=== PATIENT | female | born 1950 | race Caucasian/White ===

== ENCOUNTER 2017-03-04 14:14 | Observation (INO) ==
[2017-03-04] MEDS ORDERED: Ipratropium/Albuterol Neb 3 ML IH ONE (14:15)
--- NOTE | 2017-03-04 14:20 | Emergency Department Note ---
Disposition Clinical Impression: Acute exacerbation of chronic obstructive airways disease Chest pain Qualifiers: Chest pain type: unspecified Qualified Code(s): R07.9 - Chest pain, unspecified Disposition: Admitted As Inpatient Condition: Fair Referrals: NO,PCP [Primary Care Provider] - Forms: ED Satisfaction Letter Time of Disposition: 16:05 SOB HPI - General Chief Complaint: ED Shortness of Breath/Dyspnea Stated Complaint: Shortness of breath Time Seen by Provider: 03/04/17 14:15 Source: patient Mode of arrival: ambulatory Limitations: no limitations Nursing Notes Reviewed: Yes Vital Signs Reviewed: Yes - History of Present Illness 66-year-old female with history COPD comes in with increasing shortness of breath. Also complains of tightness and heaviness in her chest. Patient does states she's been having shortness of breath for the last 2-3 days. Patient has not had any recent cardiac workup. She does have a history of risk factors of previous cigarette smoking, hypertension, family history. Pt Subjective Complaint: shortness of breath Onset (ago): day(s) Severity: moderate Consistency/Duration: constant Improves with: nothing Worsens with: nothing, exertion Known history of: COPD Associated symptoms: Reports: cough, wheezing Treatment prior to arrival: none Cough present: No - Related Data Home Medications Medication Instructions Recorded Confirmed Aspirin 12/22/15 Atenolol 12/22/15 Fluoxetine 12/22/15 Furosemide 12/22/15 Gabapentin 12/22/15 Multivitamin 12/22/15 Ranitidine HCl 12/22/15 Simvastatin 12/22/15 TraZODone 12/22/15 Vitamin B12 12/22/15 12/22/15 Previous Rx's Medication Instructions Recorded Azithromycin [Zithromax] 1 applic PO DAILY #6 tablet 12/22/15 Albuterol Sulfate [Albuterol 2 puff IH Q4HR #1 hfa.aer.ad 04/03/16 Inhaler] Azithromycin [Zithromax] 250 mg PO Q24H #7 tablet 04/03/16 Inhaler, Assist Devices [Aerovent 1 each MC DAILY #1 spacer 04/06/16 Plus] Hydrocodone/Acetaminophen [[place] 1 tab PO TID PRN #15 tab 05/05/16 5-325 Tablet] Naproxen [Naprosyn] 500 mg PO BID #20 tablet 05/05/16 Ondansetron ODT [Zofran ODT] 4 mg SL Q6HR #15 tab.rapdis 05/05/16 Azithromycin [Zithromax] 250 mg PO DAILY #6 tablet 09/07/16 Fluconazole [Diflucan] 150 mg PO DAILY #1 tab 09/07/16 HYDROcodone/Acet 5/325 mg [[place] 1 tab PO Q6H PRN #5 tab 09/11/16 5-325 mg] Omeprazole [PriLOSEC] 20 mg PO DAILY #21 cap 09/11/16 Sucralfate [Carafate] 1 gm PO QID #30 tablet 09/11/16 Allergies Allergy/AdvReac Type Severity Reaction Status Date / Time Amoxicillin Allergy Rash Verified 03/04/17 14:21 codeine Allergy Rash Verified 03/04/17 14:21 diphenhydramine Allergy Difficulty Verified 03/04/17 14:21 [From Benadryl] Breathing Constitutional: Denies: fever, chills, weakness, weight change Eyes: Denies: eye pain, eye discharge, vision change ENT ED: Denies: ear pain, throat pain, dental pain, hearing loss, epistaxis, congestion, dysphagia Cardiovascular: Denies: chest pain, palpitations, dyspnea on exertion, edema, syncope Respiratory: Reports: cough, dyspnea, wheezes. Denies: hemoptysis, stridor Gastrointestinal: Denies: abdominal pain, nausea, vomiting, diarrhea, constipation, hematemesis, melena, hematochezia Genitourinary: Denies: dysuria, frequency, hematuria, discharge Musculoskeletal: Denies: back pain, neck pain, arthralgia, myalgia Integumentary: Denies: rash, abrasion, lesions Neurological: Denies: headache, weakness, numbness, paresthesias, confusion, abnormal gait, vertigo Psychiatric: Denies: anxiety, depression, suicidal thoughts, homicidal thoughts , auditory hallucinations, visual hallucinations Endocrine: Denies: fatigue Hematological/Lymphatic: Denies: easy bleeding, easy bruising Allergic/Immunologic: Denies: facial swelling, urticaria Past Medical History - Past Medical History Medical history: Reports: GERD, hyperlipidemia, hypertension, other Psychiatric history: Reports: depression - Social History Smoking Status: Former smoker Smokeless Tobacco Status: No Alcohol use: Reports: none Drug use: Reports: none Physical Exam - General Limitations: no limitations General appearance: alert, in no apparent distress - Head Head exam: atraumatic, normocephalic, normal inspection - Eye Eye exam: Present: normal appearance, PERRL, EOMI - ENT ENT exam: normal exam, normal oropharynx, mucous membranes moist - Neck Neck exam: Present: normal inspection, full ROM, trachea midline - Chest Chest inspection: Present: normal inspection, symmetric chest wall rise - Respiratory Respiratory exam: Present: normal lung sounds bilaterally - Cardiovascular Cardiovascular exam: Present: regular rate, normal rhythm, normal heart sounds - Abdominal Exam Abdominal exam: Present: soft, Non-Tender. Absent: tenderness, distention, guarding, rebound, rigidity - Extremities Exam Extremities exam: Present: normal inspection, full ROM. Absent: tenderness, pedal edema - Expanded Lower Extremity Exam Neurovascular/Tendon exam: Absent: motor deficit, sensory deficit, tendon deficit Gait: not tested/not observed - Back Exam Back exam: Present: normal inspection, full ROM. Absent: tenderness - Neurological Exam Neurological exam: Present: alert, oriented X3 - Psychiatric Psychiatric exam: Present: normal affect, normal mood - Skin Skin exam: Present: warm, dry, intact, normal color Course - Reevaluation(s) Reevaluation #1: 66-year-old set of three-day history of shortness of breath and chest pressure with exertion. Patient has multiple risk factors including hyperlipidemia hypertension previous cigarette smoker. On exam she did have an occasional wheeze on initially. Her EKG showed nonspecific changes initial troponin is negative. Patient's had no recent cardiac workup. We will admit the patient for evaluation of her chest discomfort. Time: 16:06 - Consultations Consultation #1: Discussed with maribell Gardiner. Time: 16:27 Vital Signs Temperature 99.1 F 03/04/17 14:15 Pulse Rate 66 03/04/17 14:15 Respiratory Rate 20 03/04/17 14:15 Blood Pressure 165/94 03/04/17 14:15 O2 Sat by Pulse Oximetry 97 03/04/17 14:15 Temperature 99.1 F 03/04/17 14:15 Pulse Rate 73 03/04/17 15:14 Respiratory Rate 16 03/04/17 15:14 Blood Pressure 134/93 03/04/17 15:14 O2 Sat by Pulse Oximetry 93 03/04/17 15:14 Oxygen Delivery Oxygen Delivery Room Air Shortness of Breath/Dyspnea - Lab Data Lab results reviewed: Yes I reviewed the patient's lab results. Result diagrams: 03/04/17 14:47 03/04/17 14:47 Lab Results 03/04/17 03/04/17 03/04/17 Range/Units 14:47 14:47 14:47 WBC 8.7 (4.3-11.1) K/mcL RBC 4.79 (3.82-4.97) M/mcL Hgb 13.7 (11.5-15.4) g/dL Hct 41.7 (35.3-44.9) % MCV 87.1 (83.0-100.0) fL MCH 28.6 (28.0-33.3) pg MCHC 32.9 (31.6-35.5) g/dL RDW 12.6 (11.5-14.5) % Plt Count 368 (140-400) K/mcL MPV 9.2 L (9.4-12.4) fL Immature Gran % 0.2 (0-4) % Seg Neutrophils % 59.0 % Lymphocytes % 30.3 % Monocytes % 8.6 % Eosinophils % 1.4 % Basophils % 0.5 % Neutrophils # 5.1 (1.6-8.9) K/mcL Lymphocytes # 2.6 (0.6-4.6) K/mcL Monocytes # 0.8 (0.0-1.3) K/mcL Eosinophils # 0.1 (0.0-0.6) K/mcL Basophils # 0.0 (0.0-0.2) K/mcL Sodium 139 (136-145) mEq/L Potassium 3.7 (3.5-4.5) mEq/L Chloride 106 (98-109) mEq/L Carbon Dioxide 25 (19-29) mEq/L BUN 10 (7-20) mg/dL Creatinine 0.85 (0.57-1.11) mg/dL Est GFR ( Amer) > 60 (> 60) Est GFR (Non-Af Amer) > 60 (> 60) BUN/Creatinine Ratio 12 (6-26) Glucose 108 H (70-99) mg/dL Calculated Osmolality 288 (280-300) Lactic Acid 1.5 (0.5-2.2) mmol/L Calcium 9.5 (8.6-10.8) mg/dL Troponin I (0-0.03) ng/mL B-Natriuretic Peptide (0-100) pg/mL 03/04/17 03/04/17 Range/Units 14:47 14:47 WBC (4.3-11.1) K/mcL RBC (3.82-4.97) M/mcL Hgb (11.5-15.4) g/dL Hct (35.3-44.9) % MCV (83.0-100.0) fL MCH (28.0-33.3) pg MCHC (31.6-35.5) g/dL RDW (11.5-14.5) % Plt Count (140-400) K/mcL MPV (9.4-12.4) fL Immature Gran % (0-4) % Seg Neutrophils % % Lymphocytes % % Monocytes % % Eosinophils % % Basophils % % Neutrophils # (1.6-8.9) K/mcL Lymphocytes # (0.6-4.6) K/mcL Monocytes # (0.0-1.3) K/mcL Eosinophils # (0.0-0.6) K/mcL Basophils # (0.0-0.2) K/mcL Sodium (136-145) mEq/L Potassium (3.5-4.5) mEq/L Chloride (98-109) mEq/L Carbon Dioxide (19-29) mEq/L BUN (7-20) mg/dL Creatinine (0.57-1.11) mg/dL Est GFR ( Amer) (> 60) Est GFR (Non-Af Amer) (> 60) BUN/Creatinine Ratio (6-26) Glucose (70-99) mg/dL Calculated Osmolality (280-300) Lactic Acid (0.5-2.2) mmol/L Calcium (8.6-10.8) mg/dL Troponin I 0.00 (0-0.03) ng/mL B-Natriuretic Peptide 118 H (0-100) pg/mL - Radiology Data Radiology results reviewed: Yes I reviewed the patient's radiology results. Chest X-Ray 03/04/17 14:15 IMPRESSION: 1. No acute radiographic finding in the chest to account for patient's shortness of breath. D/ / Logan Lopez MD / Logan Lopez MD Interpreting Provider: Logan Lopez MD - EKG Data EKG attestation: Yes I reviewed and interpreted this EKG. EKG shows normal: Reports: sinus rhythm Rate: Reports: normal Rhythm: Reports: NSR Interpretation: Reports: no acute changes
[2017-03-04 15:01] LABS: Basophils % 0.5 %; Eosinophils # 0.1 K/mcL (0.0-0.6); Eosinophils % 1.4 %; Hematocrit 41.7 % (35.3-44.9); Hemoglobin 13.7 g/dL (11.5-15.4); Immature Granulocytes % 0.2 % (0-4); Lymphocytes # 2.6 K/mcL (0.6-4.6); Lymphocytes % 30.3 %; Mean Corpuscular HGB Conc 32.9 g/dL (31.6-35.5); Mean Corpuscular Hemoglobin 28.6 pg (28.0-33.3); Mean Corpuscular Volume 87.1 fL (83.0-100.0); Mean Platelet Volume 9.2 fL (9.4-12.4); Monocytes # 0.8 K/mcL (0.0-1.3); Monocytes % 8.6 %; Neutrophils # 5.1 K/mcL (1.6-8.9); Platelet Count 368 K/mcL (140-400); Red Blood Count 4.79 M/mcL (3.82-4.97); Red Cell Distribution Width 12.6 % (11.5-14.5)
[2017-03-04 15:13] LABS: BUN/Creatinine Ratio 12 (6-26); Blood Urea Nitrogen 10 mg/dL (7-20); Calcium 9.5 mg/dL (8.6-10.8); Carbon Dioxide 25 mEq/L (19-29); Chloride 106 mEq/L (98-109); Glucose 108 mg/dL (70-99); Osmolality,Calculated 288 (280-300); Potassium 3.7 mEq/L (3.5-4.5); Sodium 139 mEq/L (136-145); eGFR For African Americans > 60 (> 60); eGFR For Non-African Americans > 60 (> 60)
[2017-03-04] MEDS ORDERED: Naloxone 0.4 MG/ML INJ IVP PRN (17:12)
--- NOTE | 2017-03-04 17:29 | Internal Med History&Physical ---
Date of Encounter: 03/04/17 Time of Encounter: 16:50 Assessment and Plan (1) Chest pain Current visit: Yes Status: Acute Patient had intermittent chest pain, with shortness of breath, nausea, diaphoresis, and dizziness. Need to rule out ACS - Continuous cardiac monitoring. - 3 sets of troponin will be tracked. - Continue aspirin, beta gabi, and is statin - Nitroglycerin sublingual when necessary. - EKG shows ST depression, will repeat EKG - Echocardiogram. - Patient has a current chest pain, we will hold stress test. We will consult cardiology Qualifiers: Chest pain type: precordial pain Qualified Code(s): R07.2 - Precordial pain (2) Shortness of breath Current visit: Yes Status: Acute Etiology is undetermined. Patient has history of COPD, however progressive shortness of breath with exertion and intermittent leg swelling raise the concern of CHF - Place patient on continuous cardiac monitoring. - Check echocardiogram. - BNP is mildly elevated but patient is obese, need to consider false-negative. - Chest x-ray is clear, no signs of pulmonary vascular congestion - Continue home medication Lasix by mouth. Adjust based on echo results. (3) Hypertension Current visit: Yes Status: Acute BP is stable, continue home medications Qualifiers: Hypertension type: essential hypertension Qualified Code(s): I10 - Essential (primary) hypertension (4) Diabetes Current visit: Yes Status: Acute Patient has borderline diabetes, on no medication, place patient on diet control only. Qualifiers: Diabetes mellitus type: type 2 Diabetes mellitus complication status: without complication Diabetes mellitus assistant terminal manager insulin use: without assistant terminal manager use Qualified Code(s): E11.9 - Type 2 diabetes mellitus without complications (5) DVT prophylaxis Current visit: Yes Status: Acute Heparin subcutaneously (6) COPD (chronic obstructive pulmonary disease) Current visit: Yes Status: Acute Stable. Patient has no wheezing. Place patient on DuoNeb nebulizer when necessary Qualifiers: COPD type: chronic bronchitis Chronic bronchitis type: unspecified Qualified Code(s): J42 - Unspecified chronic bronchitis Internal Medicine - H&P: HPI Chief complaint: Shortness of breath and chest pain Admitted From: Home Plans for Post Hospital Care: Home History of present illness: Ms. Grissom is a 66 year old female present to ER for shortness of breath and chest pain. Patient said she started to have exertional shortness of breath since 2-3 months ago, with intermittent leg edema, patient started to take Lasix for the edema since 2 years ago. Patient experienced worsening shortness of breath in last 3-4 days, with chest pain. The chest pain is intermittent, lasted 15-20 minutes for every episode, 4-5 times a day. Chest pain located in the mid chest and radiated to both arms, with shortness of breath, nausea, diaphoresis, and dizziness with the pain. Patient also mentioned in October she had syncope and fell for once. I discussed the CODE STATUS with patient. She is full code. Past Med Surg Social Fam HX - Past Medical History Medical history: GERD, hyperlipidemia, hypertension, other Psychiatric history: depression - Social History Smoking Status: Former smoker Smokeless Tobacco Status: No Alcohol use: none Drug use: none Internal Medicine - H&P: Meds Aspirin 81 mg PO DAILY 12/22/15 [History] Atenolol [Tenormin] 25 mg PO DAILY 12/22/15 [History] Cyanocobalamin (Vitamin B-12) [Vitamin B-12] 1,000 mcg SL DAILY 12/22/15 [ History] FLUoxetine HCl [PROzac] 20 mg PO DAILY 12/22/15 [History] Furosemide [Lasix] 20 mg PO BID 12/22/15 [History] Gabapentin [Neurontin] 300 mg PO HS 12/22/15 [History] Simvastatin [Zocor] 40 mg PO HS 12/22/15 [History] Omeprazole [PriLOSEC] 20 mg PO DAILY #21 cap 09/11/16 [Rx] Ergocalciferol (VITAMIN D2) [Vitamin D2] 2,000 units PO DAILY 03/04/17 [History] Loratadine [Claritin] 10 mg PO DAILY 03/04/17 [History] Allergies Amoxicillin Allergy (Verified 03/04/17 16:30) Rash codeine Allergy (Verified 03/04/17 16:30) Rash diphenhydramine [From Benadryl] Allergy (Verified 03/04/17 16:30) Difficulty Breathing All Systems PM: A 10-system review of systems was performed and is negative for pertinent findings except as documented above in the HPI. - Constitutional Vitals: Temp Pulse Resp BP Pulse Ox 99.1 F 79 18 125/87 99 03/04/17 14:15 03/04/17 16:31 03/04/17 16:31 03/04/17 16:31 03/04/17 16:31 General appearance: Present: A&O X 3, no acute distress, answers questions appropriately - Head Head exam: Present: atraumatic, normocephalic - Eye Eye exam: Present: PERRL, conjuntiva pink, sclera anicteric Pupils: Present: PERRL - Neck Neck exam general surgery: Present: supple, trachea midline. Absent: lymphadenopathy - Respiratory Respiratory exam: Present: CTAB. Absent: accessory muscle use, rales, rhonchi, wheezes - Cardiovascular Cardiovascular exam: Present: RRR, +S1, +S2. Absent: diastolic murmur, gallop, rubs, systolic murmur - GI/Abdominal GI/Abdominal exam: Present: normal bowel sounds, soft, no peritoneal signs. Absent: distended, tenderness - Extremities Exam Extremities exam: Present: warm, radial pulses palpable and symetrical. Absent : calf tenderness, cyanotic, pedal edema - Neurological Exam Neurological exam: Present: CN II-XII intact, oriented X3, no focal deficits. Absent: pronater drift, facial droop, speech deficit - Skin Skin exam: Present: dry, intact Internal Med - H&P Results - Labs CBC & Chem 7: 03/04/17 14:47 03/04/17 14:47 - EKG Data -: EKG Interpreted by Myself EKG shows normal: sinus rhythm, ST-T waves (Mild ST depression 0.5mm)
[2017-03-04] MEDS: *HR* Heparin 5,000 UNIT/ML VIAL SQ SCH (18:03)
[2017-03-04] MEDS: Furosemide 20 MG TABLET PO SCH (18:07)
[2017-03-04] MEDS ORDERED: Nitroglycerin 0.4 MG TAB.SUBL SL PRN (18:19)
[2017-03-04] MEDS ORDERED: Ipratropium/Albuterol Neb 3 ML IH PRN (18:20)
[2017-03-04] MEDS: Gabapentin 300 MG CAPSULE PO SCH (19:28)
[2017-03-05 05:05] LABS: Basophils % 0.5 %; Eosinophils # 0.2 K/mcL (0.0-0.6); Eosinophils % 1.8 %; Hematocrit 39.5 % (35.3-44.9); Immature Granulocytes % 0.6 % (0-4); Immature Platelets 2.8 % (1.1-6.1); Lymphocytes # 3.1 K/mcL (0.6-4.6); Lymphocytes % 36.6 %; Mean Corpuscular HGB Conc 32.9 g/dL (31.6-35.5); Mean Corpuscular Hemoglobin 28.9 pg (28.0-33.3); Mean Corpuscular Volume 87.8 fL (83.0-100.0); Mean Platelet Volume 9.5 fL (9.4-12.4); Monocytes # 0.8 K/mcL (0.0-1.3); Neutrophils # 4.4 K/mcL (1.6-8.9); Platelet Count 364 K/mcL (140-400); Red Cell Distribution Width 12.7 % (11.5-14.5); Segmented Neutrophils % 51.5 %
[2017-03-05 05:29] LABS: BUN/Creatinine Ratio 14 (6-26); Blood Urea Nitrogen 13 mg/dL (7-20); Carbon Dioxide 27 mEq/L (19-29); Chloride 104 mEq/L (98-109); Glucose 100 mg/dL (70-99); Magnesium 1.9 mg/dL (1.6-2.6); Osmolality,Calculated 292 (280-300); Potassium 3.4 mEq/L (3.5-4.5); Sodium 141 mEq/L (136-145); eGFR For African Americans > 60 (> 60); eGFR For Non-African Americans > 60 (> 60)
[2017-03-05] MEDS: *HR* Heparin 5,000 UNIT/ML VIAL SQ SCH ×2 (06:01→17:48)
[2017-03-05] MEDS: FLUoxetine 20 MG CAPSULE PO SCH (07:47)
[2017-03-05] MEDS: Furosemide 20 MG TABLET PO SCH ×2 (07:48→17:40)
[2017-03-05] MEDS: Loratadine 10 MG TABLET PO SCH (07:48)
[2017-03-05] MEDS: Aspirin 81 MG TAB.CHEW PO SCH (07:48)
[2017-03-05] MEDS: Acetaminophen 325 MG TABLET PO PRN ×2 (11:39→17:46)
--- NOTE | 2017-03-05 15:48 | Internal Med Progress Note ---
Date of Encounter: 03/05/17 Time of Encounter: 15:46 - Assessment and plan (1) Acute exacerbation of chronic obstructive airways disease Current Visit: Yes Status: Acute (2) Chest pain Current Visit: Yes Status: Acute Qualifiers: Chest pain type: precordial pain Qualified Code(s): R07.2 - Precordial pain (3) Hypertension Current Visit: Yes Status: Acute Qualifiers: Hypertension type: essential hypertension Qualified Code(s): I10 - Essential (primary) hypertension (4) Diabetes Current Visit: Yes Status: Acute Qualifiers: Diabetes mellitus type: type 2 Diabetes mellitus complication status: without complication Diabetes mellitus police sergeant insulin use: without prison use Qualified Code(s): E11.9 - Type 2 diabetes mellitus without complications - Subjective Interval history: Miss Eulalia Grissom is a 66-year-old female admitted for COPD exacerbation and now her breathing is much better and she is ambulating without oxygen. However last night she developed an episode of left-sided chest pain. Apparently she had a stress test 34 years ago which according to her was unremarkable. EKG was done which did not show any significant finding except for nonspecific ST abnormalities. She also was stressed as an hospital before I stress Myoview will be ordered. - Constitutional Vitals: Temp Pulse Resp BP Pulse Ox 97.6 F 60 14 94/62 95 03/05/17 11:19 03/05/17 11:19 03/05/17 11:19 03/05/17 11:19 03/05/17 11:19 General appearance: Present: A&O X 3, no acute distress, answers questions appropriately - Head Head exam: Present: atraumatic, normocephalic - Eye Eye exam: Present: PERRL, conjuntiva pink, sclera anicteric Pupils: Present: PERRL - Neck Neck exam general surgery: Present: supple, trachea midline. Absent: lymphadenopathy - Respiratory Respiratory exam: Present: CTAB. Absent: accessory muscle use, rales, rhonchi, wheezes - Cardiovascular Cardiovascular exam: Present: RRR, +S1, +S2. Absent: diastolic murmur, gallop, rubs, systolic murmur - GI/Abdominal GI/Abdominal exam: Present: normal bowel sounds, soft, no peritoneal signs. Absent: distended, tenderness - Extremities Exam Extremities exam: Present: warm, radial pulses palpable and symetrical. Absent : calf tenderness, cyanotic, pedal edema - Neurological Exam Neurological exam: Present: CN II-XII intact, oriented X3, no focal deficits. Absent: pronater drift, facial droop, speech deficit - Skin Skin exam: Present: dry, intact Internal Medicine: Result - Labs CBC & Chem 7: 03/05/17 03:21 03/05/17 03:21 Labs: Short CBC 03/05/17 Range/Units 03:21 WBC 8.5 (4.3-11.1) K/mcL Hgb 13.0 (11.5-15.4) g/dL Hct 39.5 (35.3-44.9) % Plt Count 364 (140-400) K/mcL Neutrophils # 4.4 (1.6-8.9) K/mcL BMP 03/05/17 03:21 Sodium 141 Potassium 3.4 L Chloride 104 Carbon Dioxide 27 BUN 13 Creatinine 0.93 Glucose 100 H Calcium 9.0 Cardiac Enzymes 03/04/17 03/05/17 Range/Units 21:05 03:21 Troponin I 0.00 0.00 (0-0.03) ng/mL Consult Discharge Plan - Plan Referrals: NO,PCP [Primary Care Provider] -
--- NOTE | 2017-03-05 17:54 | Electrocardiograph Report ---
[place] [address] Test Date: 2017-03-04 Pat Name: Dayana Grissom Department: 105 Room: 3A11 Gender: F Certified Medical Technician: : 1950 Requested By: Yuval Fischer Order Number: [id number] Reading MD: Alejandro Steele MD Measurements Intervals [place] Rate: 61 P: 24 TX: 127 QRS: 23 QRSD: 84 T: 41 QT: 408 QTc: 411 Interpretive Statements SINUS RHYTHM Poor R wave progression Electronically Signed On 03-05-2017 17:52:19 EDT by Alejandro Steele MD
--- NOTE | 2017-03-05 17:59 | Electrocardiograph Report ---
[address] [address] Test Date: 2017-03-04 Pat Name: Dayana Grissom Department: 115 Room: 3A11 Gender: F Lead Advisor: KYLIE : 1950 Requested By: Randall Adler Order Number: [id number] Reading MD: Alejandro Steele MD Measurements Intervals [place] Rate: 60 P: 33 PA: 140 QRS: 23 QRSD: 86 T: 49 QT: 441 QTc: 441 Interpretive Statements SINUS RHYTHM Electronically Signed On 03-05-2017 17:57:41 EDT by Alejandro Steele MD
[2017-03-05] MEDS: Gabapentin 300 MG CAPSULE PO SCH (20:03)
[2017-03-06] MEDS: *HR* Heparin 5,000 UNIT/ML VIAL SQ SCH ×2 (05:03→18:11)
[2017-03-06 07:37] LABS: BUN/Creatinine Ratio 23 (6-26); Blood Urea Nitrogen 22 mg/dL (7-20); Calcium 9.1 mg/dL (8.6-10.8); Carbon Dioxide 30 mEq/L (19-29); Chloride 104 mEq/L (98-109); Glucose 96 mg/dL (70-99); Osmolality,Calculated 295 (280-300); Sodium 141 mEq/L (136-145); eGFR For African Americans > 60 (> 60); eGFR For Non-African Americans 59 (> 60)
[2017-03-06] MEDS ORDERED: Regadenoson 0.4 MG/5 ML SYRINGE IVP ONE (07:52)
[2017-03-06 07:55] LABS: Potassium 4.9 mEq/L (3.5-4.5)
[2017-03-06] MEDS: FLUoxetine 20 MG CAPSULE PO SCH (09:49)
[2017-03-06] MEDS: Loratadine 10 MG TABLET PO SCH (09:50)
[2017-03-06] MEDS: Aspirin 81 MG TAB.CHEW PO SCH (09:50)
[2017-03-06] MEDS: Furosemide 20 MG TABLET PO SCH ×2 (09:50→18:11)
--- NOTE | 2017-03-06 13:20 | Internal Med Progress Note ---
Date of Encounter: 03/06/17 Time of Encounter: 13:19 - Assessment and plan (1) Acute exacerbation of chronic obstructive airways disease Current Visit: Yes Status: Acute (2) Chest pain Current Visit: Yes Status: Acute Qualifiers: Chest pain type: precordial pain Qualified Code(s): R07.2 - Precordial pain (3) Hypertension Current Visit: Yes Status: Acute Qualifiers: Hypertension type: essential hypertension Qualified Code(s): I10 - Essential (primary) hypertension (4) Diabetes Current Visit: Yes Status: Acute Qualifiers: Diabetes mellitus type: type 2 Diabetes mellitus complication status: without complication Diabetes mellitus terminal operations manager insulin use: without retirement use Qualified Code(s): E11.9 - Type 2 diabetes mellitus without complications - Subjective Interval history: Miss Eulalia Grissom is a 66-year-old female admitted for COPD exacerbation and now her breathing is much better and she is ambulating without oxygen. However last night she developed an episode of left-sided chest pain. Apparently she had a stress test 34 years ago which according to her was unremarkable. EKG was done which did not show any significant finding except for nonspecific ST abnormalities. Patient wants to have a stress test and hospital. stress Myoview ordered and will be finished by tomorrow. First thought is already done. - Constitutional Vitals: Temp Pulse Resp BP Pulse Ox 98.3 F 70 16 115/76 95 03/06/17 11:55 03/06/17 11:55 03/06/17 11:55 03/06/17 11:55 03/06/17 11:55 General appearance: Present: A&O X 3, no acute distress, answers questions appropriately - Head Head exam: Present: atraumatic, normocephalic - Eye Eye exam: Present: PERRL, conjuntiva pink, sclera anicteric Pupils: Present: PERRL - Neck Neck exam general surgery: Present: supple, trachea midline. Absent: lymphadenopathy - Respiratory Respiratory exam: Present: CTAB. Absent: accessory muscle use, rales, rhonchi, wheezes - Cardiovascular Cardiovascular exam: Present: RRR, +S1, +S2. Absent: diastolic murmur, gallop, rubs, systolic murmur - GI/Abdominal GI/Abdominal exam: Present: normal bowel sounds, soft, no peritoneal signs. Absent: distended, tenderness - Extremities Exam Extremities exam: Present: warm, radial pulses palpable and symetrical. Absent : calf tenderness, cyanotic, pedal edema - Neurological Exam Neurological exam: Present: CN II-XII intact, oriented X3, no focal deficits. Absent: pronater drift, facial droop, speech deficit - Skin Skin exam: Present: dry, intact Internal Medicine: Result - Labs CBC & Chem 7: 03/05/17 03:21 03/06/17 06:16 Labs: BMP 03/06/17 06:16 Sodium 141 Potassium 4.9 H D Chloride 104 Carbon Dioxide 30 H BUN 22 H Creatinine 0.96 Glucose 96 Calcium 9.1 Consult Discharge Plan - Plan Referrals: NO,PCP [Primary Care Provider] -
--- NOTE | 2017-03-06 13:24 | Discharge Summary ---
Date of Encounter: 03/07/17 Time of Encounter: 13:22 - Discharge Diagnosis (1) Acute exacerbation of chronic obstructive airways disease Priority: Primary Status: Acute (2) Chest pain Priority: Primary Status: Acute Qualifiers: Chest pain type: precordial pain Qualified Code(s): R07.2 - Precordial pain (3) Hypertension Priority: Secondary Status: Acute Qualifiers: Hypertension type: essential hypertension Qualified Code(s): I10 - Essential (primary) hypertension (4) Diabetes Priority: Secondary Status: Acute Qualifiers: Diabetes mellitus type: type 2 Diabetes mellitus complication status: without complication Diabetes mellitus extermination supervisor insulin use: without fpc use Qualified Code(s): E11.9 - Type 2 diabetes mellitus without complications - Discharge Medications Prescriptions: Albuterol Sulfate [Albuterol Inhaler] 2 puff IH QID PRN #1 inhaler PRN Reason: Shortness Of Breath/Wheezing Tiotropium [Spiriva] 18 mcg IH DAILYR #1 inh Home Medications: Aspirin 81 mg PO DAILY 12/22/15 [History] Atenolol [Tenormin] 25 mg PO DAILY 12/22/15 [History] Cyanocobalamin (Vitamin B-12) [Vitamin B-12] 1,000 mcg SL DAILY 12/22/15 [ History] FLUoxetine HCl [Prozac] 20 mg PO DAILY 12/22/15 [History] Furosemide [Lasix] 20 mg PO BID 12/22/15 [History] Gabapentin [Neurontin] 300 mg PO HS 12/22/15 [History] Simvastatin [Zocor] 40 mg PO HS 12/22/15 [History] Omeprazole [PriLOSEC] 20 mg PO DAILY #21 cap 09/11/16 [Rx] Ergocalciferol (VITAMIN D2) [Vitamin D2] 2,000 units PO DAILY 03/04/17 [History] Loratadine [Claritin] 10 mg PO DAILY 03/04/17 [History] Albuterol Sulfate [Albuterol Inhaler] 2 puff IH QID PRN #1 inhaler 03/07/17 [Rx] Tiotropium [Spiriva] 18 mcg IH DAILYR #1 inh 03/07/17 [Rx] Allergies/Adverse Reactions: Allergies Amoxicillin Allergy (Verified 03/04/17 16:30) Rash codeine Allergy (Verified 03/04/17 16:30) Rash diphenhydramine [From Benadryl] Allergy (Verified 03/04/17 16:30) Difficulty Breathing Procedures/tests Complete & Pending: Procedures Performed prior 72 hours Category Date Time Status NM [place] perf SPECT multi [NM] Routine Exams 03/05/17 09:09 Taken EKG [ECG 12 lead ECG] [ECG] AM 0600 Y 03/05/17 06:00 Completed EKG [ECG 12 lead ECG] [ECG] Stat Y 03/04/17 20:00 Completed EV echocardiogram Routine Y 03/05/17 17:17 Completed SP pharm nuclear stress Stat Y 03/06/17 09:00 Completed Date of admission: 03/04/17 16:42 Primary care physician: PCP NO Consults: 03/05/17 09:47 Consult to Transaction Processor [CONS] Routine Reason for SW Consult: needs information on transportation assistance Discharging clinician: David Siddiqi Anticipated date of discharge: 03/07/17 - Patient Status Disposition: Home, Self-Care Overall status at discharge: patient is back to baseline - Discharge Instructions Follow Up With: NO,PCP [Primary Care Provider] - - Diet and Activity Activity: increase activity as tolerated Diet: advance to your usual diet, low fat, low cholesterol, low salt diet Hospital course: Ms. Grissom is a 66 year old female was admitted for acute exacerbation of COPD. She was treated with nebulizers and steroids and doing better. She complained of left-sided chest pain and her cardiac enzymes and EKG were unremarkable. She had a stress test several years ago according to her. Patient to stress Myoview test was done and it was negative. Her EF was estimated to be 72%. - Time Spent with Patient Total time spent providing and/or coordinating discharge services: Greater than 30 minutes - Constitutional Vitals: Temp Pulse Resp BP Pulse Ox 98.3 F 70 16 115/76 95 03/06/17 11:55 03/06/17 11:55 03/06/17 11:55 03/06/17 11:55 03/06/17 11:55 General appearance: Present: A&O X 3, no acute distress, answers questions appropriately - Head Head exam: Present: atraumatic, normocephalic - Eye Eye exam: Present: PERRL, conjuntiva pink, sclera anicteric Pupils: Present: PERRL - Neck Neck exam general surgery: Present: supple, trachea midline. Absent: lymphadenopathy - Respiratory Respiratory exam: Present: CTAB. Absent: accessory muscle use, rales, rhonchi, wheezes - Cardiovascular Cardiovascular exam: Present: RRR, +S1, +S2. Absent: diastolic murmur, gallop, rubs, systolic murmur - GI/Abdominal GI/Abdominal exam: Present: normal bowel sounds, soft, no peritoneal signs. Absent: distended, tenderness - Extremities Exam Extremities exam: Present: warm, radial pulses palpable and symetrical. Absent : calf tenderness, cyanotic, pedal edema - Neurological Exam Neurological exam: Present: CN II-XII intact, oriented X3, no focal deficits. Absent: pronater drift, facial droop, speech deficit - Skin Skin exam: Present: dry, intact
[2017-03-06] MEDS: Tiotropium 18 MCG inhalation IH SCH (14:34)
[2017-03-06] MEDS: Gabapentin 300 MG CAPSULE PO SCH (20:27)
[2017-03-07] MEDS: *HR* Heparin 5,000 UNIT/ML VIAL SQ SCH (05:19)
[2017-03-07] MEDS: Tiotropium 18 MCG inhalation IH SCH (08:40)
[2017-03-07] MEDS: Aspirin 81 MG TAB.CHEW PO SCH (09:29)
[2017-03-07] MEDS: FLUoxetine 20 MG CAPSULE PO SCH (09:29)
[2017-03-07] MEDS: Furosemide 20 MG TABLET PO SCH (09:29)
[2017-03-07] MEDS: Loratadine 10 MG TABLET PO SCH (09:29)
--- NOTE | 2017-03-07 10:53 | Nuclear Medicine Stress Report ---
Regadenoson Nuclear 2 day Name: Dayana Grissom Date of Study: 03/06/2017 Date: 1950 Ht: 60.0 in Medical Record#: [id number] Age: 66 Wt: 140.0 lb Gender: Female Order #: [id number] Location: [facility] Room: [facility] [place] Supervising Provider: Kendy Camp CNP Reading Physician: Amor Esqueda DO, FACC, FASIL Ordering Physician: David Siddiqi MD Primary Care Physician: NONE Stress Technologist: Natalia Head NETWORKING SPECIALIST, CCT Director Of Sports Medicine: Hermilo Kinney Indications: Chest Pain Impression: Pharmacologic stress ECG is negative for ischemia at level of heart rate achieved. Gated EF = 72%. Small size, mild intensity, fixed apical septal defect c/w artifact. Perfusion imaging was negative for ischemia or infarct. History: Hypertension Diabetes Hypercholesteremia Stress Test Summary: Stress Test Type: Pharmacologic Regadenoson 0.4mg/5ml given IV Baseline Information: Initial Heart Rate: 63 Blood Pressure: 106/62 Stress Information: Test Terminated Due to (primary): As per protocol Maximum Blood Pressure: 124/76 Maximum Heart Rate: 113 Percent Maximum Heart Rate Achieved: 72 Double Product: [id number] METS Reached: 10 Symptoms: No chest symptoms, Nausea Nuclear Summary: SPECT myocardial perfusion imaging using Tc99m Sestamibi given intravenously was performed at rest and following cardiac stress testing. The resting images were obtained following initial dose of 34.9 mCi. Following stress an additional dose of 31.6 mCi was given at peak exercise or 30 seconds post regadenoson infusion. Medication Given: Time Medication Dose Units Route Findings: Stress Note * Resting ECG demonstrated normal sinus rhythm. * No baseline arrhythmias were noted. * Pharmacologic stress ECG is negative for ischemia at level of heart rate achieved. * No arrhythmias were noted during stress. * Patient had no chest pain during stress. * Normal hemodynamic responses to pharmacologic stress. Study Quality * Study quality is average. Gated EF % * Gated EF = 72%. Left Ventricle * The left ventricle is not dilated. LVEDV = 87 mL. * Normal wall motion. Apical Perfusion Rest * The apical septal segment shows a mild reduction in perfusion. Apical Perfusion Stress * The apical septal segment shows a mild reduction in perfusion. TID * No evidence of transient ischemic dilatation. TID ratio = 1.4. Lung Uptake * There is no evidence of increase lung uptake. Updated by Amor Esuqeda DO, JENNIE, PORTILLO, HARJEET on 03/07/2017 10:48:35 AM electronically signed on 03/07/2017 10:50:01 AM with status of Final
[2017-03-07 15:50] VITALS: BP 118/77
== END 2017-03-07 17:11 | disposition home or self-care (01) ==
LOC: 3ANU 14:14 → EMEROO 14:14 → 3ANU 17:50
PROVIDERS: ADMIT Nurse Practitioner Family; ATTEND Internal Medicine

== ENCOUNTER 2017-09-24 22:26 | Observation (INO) ==
[2017-09-24] MEDS ORDERED: Ondansetron 4 MG/2 ML VIAL IVP ONE (22:49)
[2017-09-24] MEDS ORDERED: Nitroglycerin 0.4 MG TAB.SUBL SL ONE (22:49)
[2017-09-24] MEDS ORDERED: 0.9 % Sodium Chloride 500 ML IVC ONE (22:49)
[2017-09-24] MEDS ORDERED: Aspirin 81 MG TAB.CHEW PO ONE (22:49)
[2017-09-24 23:13] LABS: Basophils # 0.1 K/mcL (0.0-0.2); Basophils % 0.6 %; Eosinophils # 0.1 K/mcL (0.0-0.6); Eosinophils % 0.8 %; Hematocrit 39.8 % (35.3-44.9); Hemoglobin 13.2 g/dL (11.5-15.4); Immature Granulocytes % 0.2 % (0-4); Lymphocytes # 2.2 K/mcL (0.6-4.6); Lymphocytes % 25.1 %; Mean Corpuscular HGB Conc 33.2 g/dL (31.6-35.5); Mean Corpuscular Hemoglobin 28.8 pg (28.0-33.3); Mean Corpuscular Volume 86.7 fL (83.0-100.0); Mean Platelet Volume 9.7 fL (9.4-12.4); Monocytes # 0.9 K/mcL (0.0-1.3); Monocytes % 10.3 %; Neutrophils # 5.5 K/mcL (1.6-8.9); Platelet Count 356 K/mcL (140-400); Red Blood Count 4.59 M/mcL (3.82-4.97); Red Cell Distribution Width 12.4 % (11.5-14.5)
[2017-09-24 23:24] LABS: INR 1.1; Prothrombin Time 11.6 Seconds (9.4-12.1)
--- NOTE | 2017-09-24 23:24 | Emergency Department Note ---
Disposition Clinical Impression: ST segment changes on electrocardiogram Chest pain Qualifiers: Chest pain type: precordial pain Qualified Code(s): R07.2 - Precordial pain Disposition: Admitted As Inpatient Condition: Undetermined Chest Pain HPI - General Chief Complaint: ED Chest Pain Stated Complaint: CP Time Seen by Provider: 09/24/17 22:35 Source: patient Mode of arrival: private vehicle Limitations: no limitations Vital Signs Reviewed: Yes Nursing Notes Reviewed: Yes - History of Present Illness Pt complaint: chest pain Onset (ago): hour(s) Duration: constant Onset: during rest Pain Location: substernal, left chest Severity: moderate, severe Severity scale (1-10): 9 Quality: heaviness, sharp Pain Radiation: RUE, LUE, neck (left side) Improves with: nothing Worsens with: nothing Associated symptoms: Reports: nausea, diaphoresis, cough ("about same as usual" , hx of copd). Denies: vomiting, dyspnea ("no more than usual"), syncope, palpitations, fever Treatments prior to arrival chest pain: none - Related Data On Oral Contraceptives: No Home Medications Medication Instructions Recorded Confirmed Aspirin 81 mg PO DAILY 12/22/15 03/04/17 Atenolol [Tenormin] 25 mg PO DAILY 12/22/15 03/04/17 Cyanocobalamin (Vitamin B-12) 1,000 mcg SL DAILY 12/22/15 03/04/17 [Vitamin B-12] FLUoxetine HCl [Prozac] 20 mg PO DAILY 12/22/15 03/04/17 Furosemide [Lasix] 20 mg PO BID 12/22/15 03/04/17 Gabapentin [Neurontin] 300 mg PO HS 12/22/15 03/04/17 Simvastatin [Zocor] 40 mg PO HS 12/22/15 03/04/17 Ergocalciferol (VITAMIN D2) 2,000 units PO DAILY 03/04/17 03/04/17 [Vitamin D2] Loratadine [Claritin] 10 mg PO DAILY 03/04/17 03/04/17 Previous Rx's Medication Instructions Recorded Omeprazole [PriLOSEC] 20 mg PO DAILY #21 cap 09/11/16 Albuterol Sulfate [Albuterol 2 puff IH QID PRN #1 inhaler 03/07/17 Inhaler] Tiotropium [Spiriva] 18 mcg IH DAILYR #1 inh 03/07/17 Doxycycline 100 mg PO BID #20 capsule 05/24/17 predniSONE [PredniSONE] 60 mg PO DAILY #15 tablet 05/24/17 Allergies Allergy/AdvReac Type Severity Reaction Status Date / Time Amoxicillin Allergy Rash Verified 09/24/17 22:37 codeine Allergy Rash Verified 09/24/17 22:37 diphenhydramine Allergy Difficulty Verified 09/24/17 22:37 [From Benadryl] Breathing All systems ED: reviewed and negative except as stated. Review of Systems: As Per HPI Constitutional: Denies: fever, chills, weakness Chest Pain PMH - Past Medical History Medical history: Reports: COPD, GERD, hyperlipidemia, hypertension, other Surgical history: Reports: knee replacement Psychiatric history: Reports: depression - Social History Smoking Status: Former smoker Alcohol use: Reports: rarely Drug use: Reports: none Physical Exam - General Limitations: no limitations General appearance: alert, in no apparent distress Course Course Narrative: patient presents from home for evaluation chest pain. it was acute in onset and began when she was at rest. initially was in the chest only, then began to radiate to the left arm. shortly afterward it began to radiate to the right arm then into the left side of the neck. she states that the pain is as intense now as it was when it began. nothing makes it better. It is worse with exertion. She states that she had a stress test last year and believes it was normal. she has never had a heart catheterization. she denies any recent changes in medications. EKG, x-ray and labs have been ordered, along with aspirin and nitroglycerin. EKG shows a sinus rhythm with ST depression in the inferior an lateral leads, also in the septal leads. chest x-ray was read by the radiologist as no acute abnormality. flu swab is negative. labs show a slightly low potassium,troponin of 0.03, bnp 34, and glucose of 136. All other labs are normal patient's pain was alleviated with the nitroglycerin. patient will require admission for further evaluation of unstable angina. Case was discussed with Dr. Karimi. He has had [id number] time with the patient, has reviewed the EKG and lab findings, and agrees with the assessment and plan - Reevaluation(s) Reevaluation #1: Pain is "much better". C/O "soreness" 2/10. Looks very comfortable, able to sit up, smile, conversant. Time: 00:35 Vital Signs Temperature 99.1 F 09/24/17 22:33 Pulse Rate 80 09/24/17 22:33 Respiratory Rate 18 09/24/17 22:33 Blood Pressure 123/73 09/24/17 22:33 O2 Sat by Pulse Oximetry 95 09/24/17 22:33 Temperature 99.1 F 09/24/17 22:33 Pulse Rate 83 09/25/17 01:38 Respiratory Rate 16 09/25/17 01:38 Blood Pressure 101/64 09/25/17 01:38 O2 Sat by Pulse Oximetry 96 09/25/17 01:38 Oxygen Delivery Oxygen Delivery Nasal Cannula Chest Pain - Lab Data Result diagrams: 09/24/17 23:04 09/24/17 23:04 Lab Results 09/24/17 09/24/17 09/24/17 Range/Units 23:04 23:04 23:04 WBC 8.8 (4.3-11.1) K/mcL RBC 4.59 (3.82-4.97) M/mcL Hgb 13.2 (11.5-15.4) g/dL Hct 39.8 (35.3-44.9) % MCV 86.7 (83.0-100.0) fL MCH 28.8 (28.0-33.3) pg MCHC 33.2 (31.6-35.5) g/dL RDW 12.4 (11.5-14.5) % Plt Count 356 (140-400) K/mcL MPV 9.7 (9.4-12.4) fL Immature Gran % 0.2 (0-4) % Seg Neutrophils % 63.0 % Lymphocytes % 25.1 % Monocytes % 10.3 % Eosinophils % 0.8 % Basophils % 0.6 % Neutrophils # 5.5 (1.6-8.9) K/mcL Lymphocytes # 2.2 (0.6-4.6) K/mcL Monocytes # 0.9 (0.0-1.3) K/mcL Eosinophils # 0.1 (0.0-0.6) K/mcL Basophils # 0.1 (0.0-0.2) K/mcL PT 11.6 (9.4-12.1) Seconds INR 1.1 APTT 28.9 (26.0-36.0) Seconds Sodium (136-145) mEq/L Potassium (3.5-5.1) mEq/L Chloride (98-107) mEq/L Carbon Dioxide (23-29) mEq/L BUN (8-23) mg/dL Creatinine (0.60-1.20) mg/dL Est GFR ( Amer) (> 60) Est GFR (Non-Af Amer) (> 60) BUN/Creatinine Ratio (6-26) Glucose (70-105) mg/dL Calculated Osmolality (280-300) Calcium (8.6-10.3) mg/dL Troponin I (< 0.04) ng/mL B-Natriuretic Peptide 34 (Less than 100) pg/mL Urine Color (Yellow) Urine Clarity (Clear) Urine pH (5.0-8.0) pH Units Ur Specific [place] (1.010-1.025) Urine Protein (Neg-Trace) mg/dL Urine Glucose (UA) (Normal) mg/dL Urine Ketones (Negative) mg/dL Urine Blood (Negative) Urine Nitrite (Negative) Urine Bilirubin (Negative) Urine Urobilinogen (Normal) mg/dL Ur Leukocyte Esterase (Negative) Urine Microscopic RBC (0-3) per hpf Ur Squamous Epith Cells (None-Few) per lpf Urine Bacteria (None-Few) per hpf Hyaline Casts (None-Few) per lpf Ur Culture Indicated? (NO) 09/24/17 09/24/17 09/25/17 Range/Units 23:04 23:04 00:49 WBC (4.3-11.1) K/mcL RBC (3.82-4.97) M/mcL Hgb (11.5-15.4) g/dL Hct (35.3-44.9) % MCV (83.0-100.0) fL MCH (28.0-33.3) pg MCHC (31.6-35.5) g/dL RDW (11.5-14.5) % Plt Count (140-400) K/mcL MPV (9.4-12.4) fL Immature Gran % (0-4) % Seg Neutrophils % % Lymphocytes % % Monocytes % % Eosinophils % % Basophils % % Neutrophils # (1.6-8.9) K/mcL Lymphocytes # (0.6-4.6) K/mcL Monocytes # (0.0-1.3) K/mcL Eosinophils # (0.0-0.6) K/mcL Basophils # (0.0-0.2) K/mcL PT (9.4-12.1) Seconds INR APTT (26.0-36.0) Seconds Sodium 139 (136-145) mEq/L Potassium 3.1 L (3.5-5.1) mEq/L Chloride 103 (98-107) mEq/L Carbon Dioxide 28 (23-29) mEq/L BUN 18 (8-23) mg/dL Creatinine 0.98 (0.60-1.20) mg/dL Est GFR ( Amer) > 60 (> 60) Est GFR (Non-Af Amer) 57 L (> 60) BUN/Creatinine Ratio 18 (6-26) Glucose 136 H (70-105) mg/dL Calculated Osmolality 292 (280-300) Calcium 8.9 (8.6-10.3) mg/dL Troponin I < 0.03 (< 0.04) ng/mL B-Natriuretic Peptide (Less than 100) pg/mL Urine Color Yellow (Yellow) Urine Clarity Clear (Clear) Urine pH 7.0 (5.0-8.0) pH Units Ur Specific [place] 1.006 L (1.010-1.025) Urine Protein Negative (Neg-Trace) mg/dL Urine Glucose (UA) Normal (Normal) mg/dL Urine Ketones Negative (Negative) mg/dL Urine Blood Negative (Negative) Urine Nitrite Negative (Negative) Urine Bilirubin Negative (Negative) Urine Urobilinogen Normal (Normal) mg/dL Ur Leukocyte Esterase Moderate H (Negative) Urine Microscopic RBC 3-5 H (0-3) per hpf Ur Squamous Epith Cells Many H (None-Few) per lpf Urine Bacteria None Seen (None-Few) per hpf Hyaline Casts None Seen (None-Few) per lpf Ur Culture Indicated? NO. (NO) Heart Score - Score History: Moderately Suspicious EKG: Significant ST-Depression Age: 45-65 Risk Factors: 1-2 risk factors Troponin: 1-3x normal limit HEART Score Total: 6 Attestation Statement - Attestation Attestation: Parish Dawson DO have provided [id number] time during the care of this patient. Detailed review the presentation, symptoms, medical history were discussed and reviewed with the mid-level provider Paola Mei PA-C/JUNIOR PROGRAMMER ANALYST. Medical intervention labs and imaging studies were reviewed in detail. See full documentation of physical exam and course of care in the mid-level provider 's note. I agree with the determined course of care, medical intervention and disposition put forth by the mid-level provider. See below documentation for changes or alterations in documentation.
[2017-09-24 23:27] LABS: Activated Partial Thrombo Time 28.9 Seconds (26.0-36.0); BUN/Creatinine Ratio 18 (6-26); Blood Urea Nitrogen 18 mg/dL (8-23); Calcium 8.9 mg/dL (8.6-10.3); Carbon Dioxide 28 mEq/L (23-29); Chloride 103 mEq/L (98-107); Glucose 136 mg/dL (70-105); Osmolality,Calculated 292 (280-300); Potassium 3.1 mEq/L (3.5-5.1); Sodium 139 mEq/L (136-145); eGFR For African Americans > 60 (> 60); eGFR For Non-African Americans 57 (> 60)
[2017-09-24] MEDS ORDERED: Ipratropium/Albuterol Neb 3 ML IH ONE (23:42)
[2017-09-24] MEDS ORDERED: methylPREDNISolone 125 MG/2 ML VIAL IVP ONE (23:42)
--- NOTE | 2017-09-24 23:49 | Emergency Department Note ---
START Narrative - START START: 67-year-old female presents to emergency room with onset of bilateral chest pain radiating in the left arm and all 4 extremities. Patient denies any specific cardiac history. Symptoms are still present on arrival. Currently she is denying shortness of breath headache vision changes nausea vomiting or diarrhea. Denies any fevers or chills. Denies any trauma. On my physical exam patient is resting comfortably in the bed breathing comfortably flashes. Trachea is midline. Lungs are clear heart is regular abdomen is soft nontender nondistended with no guarding no rigidity no peritoneal symptoms. Patient is concerning for cardiac related disease. Nitroglycerin aspirin breathing treatments and steroids to be given. We will continue to monitor here in the emergency room treatment courses. The patient was seen in conjunction with the mid-level provider. Physical exam is otherwise unremarkable this point. Patient will most likely need admission for definitive management. See detailed documentation of the physical exam, medical intervention, medical decision making this position and the mid-level provider's note. Chest pain is along mildly better after nitroglycerin. Pain medication at this time. Potassium repleted at this point. Aspirin are given. Admission process to be completed for anginal equivalent that required evaluation inpatient setting. Local clinical concern for aortic dissection or aneurysm secondary to stable mediastinum on chest x-ray with no acute tearing sensation on the presenting symptoms. Patient is otherwise resting comfortably in the basilar time in no apparent distress.
[2017-09-25] MEDS ORDERED: *HR* Morphine 2 MG/ML SYRINGE IVP ONE (00:46)
[2017-09-25] MEDS ORDERED: Nitroglycerin 1 INCH/GM PACKET TP ONE (00:47)
[2017-09-25 00:59] LABS: Bacteria,Urine None Seen per hpf (None-Few); Bilirubin,Urine Negative (Negative); Blood,Urine Negative (Negative); Clarity,Urine Clear (Clear); Color,Urine Yellow (Yellow); Hyaline Casts,Urine None Seen per lpf (None-Few); Ketones,Urine Negative (Negative); Leukocyte Esterase,Urine Moderate (Negative); Nitrite,Urine Negative (Negative); Protein,Urine Negative (Neg-Trace); Specific Gravity,Urine 1.006 (1.010-1.025); Squamous Epithelial Cell,Urine Many per lpf (None-Few); Urobilinogen,Urine Normal (Normal)
[2017-09-25 01:02] LABS: Glucose,Urine (UA) Normal (Normal)
--- NOTE | 2017-09-25 03:04 | Internal Med History&Physical ---
<Bishnu Friend - Last Filed: 09/25/17 04:18> Date of Encounter: 09/25/17 Time of Encounter: 02:00 Assessment and Plan (1) Chest pain Current visit: Yes Status: Acute ECG shows ST depression in inferior/lateral/septal leads, similar in presentation/documentation in ECG February 2017. Troponin negative x1. Trending. Atypical clinical picture with pain radiating to both arms, worse with deep inspiration and movement. Denies mechanical trauma/exertion/recent illness. Past workup for ischemia in February 2017 with pharmacologic stress test was negative, with gated EF of >70% Has risk factors of former smoker, HTN, HLD. While low likelihood ACS, will request echocardiogram and stress test. NPO after midnight, not on nitrates or nicotine patch. Qualifiers: Chest pain type: chest pain on breathing Qualified Code(s): R07.1 - Chest pain on breathing; R07.81 - Pleurodynia (2) Hypertension Current visit: No Status: Acute Continuing Tenormin. Qualifiers: Hypertension type: essential hypertension Qualified Code(s): I10 - Essential (primary) hypertension (3) COPD (chronic obstructive pulmonary disease) Current visit: No Status: Acute Not in current exacerbation. Continuing Spiriva and Albuterol. PRN O2 Titration. Qualifiers: COPD type: chronic bronchitis Chronic bronchitis type: unspecified Qualified Code(s): J42 - Unspecified chronic bronchitis (4) DVT prophylaxis Current visit: No Status: Acute SQ Heparin 5000U q12H. Total time: ~40 minutes Internal Medicine - H&P: HPI Admitted From: Emergency Dept Plans for Post Hospital Care: Home History of present illness: Ms. Grissom is a 67 year old female who presents to ED with onset of chest pain at 199909/24/17, with past medical history of COPD non-oxygen dependent, GERD, HTN, HLD, and tobacco use (1/2ppd from quit in 30s). Pain is worse with breathing, movement, and radiates to both left and right arm. Troponin is negative x1, ECG shows ST depression in inferior, lateral, and septal leads. This is similar in presentation to ECG taken in February of 2017. Pharmacologic stress test was performed at the time which was negative for ischemia. Gated EF >70%. Patient feels better at time of encounter, chest discomfort mild with deep inspiration and movement, though continues at rest. Past Med Surg Social Fam HX - Past Medical History Medical history: COPD, GERD, hyperlipidemia, hypertension, other Psychiatric history: depression - Past Surgical History Surgical History: knee replacement - Social History Smoking Status: Former smoker Smokeless Tobacco Status: No Alcohol use: rarely Drug use: none Internal Medicine - H&P: Meds Aspirin 81 mg PO DAILY 12/22/15 [History] Atenolol [Tenormin] 25 mg PO DAILY 12/22/15 [History] Cyanocobalamin (Vitamin B-12) [Vitamin B-12] 1,000 mcg SL DAILY 12/22/15 [ History] FLUoxetine HCl [Prozac] 20 mg PO DAILY 12/22/15 [History] Furosemide [Lasix] 20 mg PO DAILY 12/22/15 [History] Gabapentin [Neurontin] 300 mg PO HS 12/22/15 [History] Simvastatin [Zocor] 40 mg PO HS 12/22/15 [History] Omeprazole [PriLOSEC] 20 mg PO DAILY #21 cap 09/11/16 [Rx] Ergocalciferol (VITAMIN D2) [Vitamin D2] 2,000 units PO DAILY 03/04/17 [History] Loratadine [Claritin] 10 mg PO DAILY 03/04/17 [History] Albuterol Sulfate [Albuterol Inhaler] 2 puff IH QID PRN #1 inhaler 03/07/17 [Rx] Tiotropium [Spiriva] 18 mcg IH DAILYR #1 inh 03/07/17 [Rx] 3 Allergy/AdvReac Type Severity Reaction Status Date / Time Amoxicillin Allergy Rash Verified 09/24/17 22:37 codeine Allergy Rash Verified 09/24/17 22:37 diphenhydramine Allergy Difficulty Verified 09/24/17 22:37 [From Benadryl] Breathing All Systems PM: A 10-system review of systems was performed and is negative for pertinent findings except as documented above in the HPI. - Constitutional Vitals: Temp Pulse Resp BP Pulse Ox 99.1 F 88 18 112/65 96 09/24/17 22:33 09/25/17 02:21 09/25/17 02:21 09/25/17 02:21 09/25/17 02:21 General appearance: Present: A&O X 3, no acute distress - Head Head exam: Present: normal inspection - Eye Eye exam: Present: EOMI - ENT ENT exam: Present: normal exam - Neck Neck exam general surgery: Present: full ROM - Respiratory Respiratory exam: Present: CTAB. Absent: respiratory distress - Cardiovascular Cardiovascular exam: Present: RRR, +S1, +S2. Absent: systolic murmur - Extremities Exam Extremities exam: Present: warm. Absent: calf tenderness, pedal edema - Neurological Exam Neurological exam: Present: no focal deficits - Psychiatric Psychiatric exam: Present: normal affect - Skin Skin exam: Present: normal color. Absent: cyanosis Internal Med - H&P Results - Labs CBC & Chem 7: 09/24/17 23:04 09/24/17 23:04 <Ke Gloria - Last Filed: 09/25/17 10:49> Date of Encounter: 09/25/17 Internal Medicine - H&P: HPI History of present illness: Ms. Grissom is a 67 year old female All Systems PM: A 10-system review of systems was performed and is negative for pertinent findings except as documented above in the HPI. - Constitutional Vitals: Temp Pulse Resp BP Pulse Ox 98.8 F 82 18 108/64 96 09/25/17 04:37 09/25/17 03:27 09/25/17 04:37 09/25/17 04:37 09/25/17 03:27 Internal Med - H&P Results - Labs CBC & Chem 7: 09/25/17 07:20 09/25/17 07:20 Labs: Short CBC 09/25/17 Range/Units 07:20 WBC 5.5 (4.3-11.1) K/mcL Hgb 11.9 (11.5-15.4) g/dL Hct 37.4 (35.3-44.9) % Plt Count 337 (140-400) K/mcL Neutrophils # 4.7 (1.6-8.9) K/mcL BMP 09/25/17 07:20 Sodium 137 Potassium 3.5 Chloride 102 Carbon Dioxide 23 BUN 14 Creatinine 0.91 Glucose 189 H Calcium 8.7 Cardiac Enzymes 09/25/17 Range/Units 07:20 Troponin I < 0.03 (< 0.04) ng/mL - Impressions ITS Impressions Echocardiogram 09/25/17 03:58 Impressions: LVEF 60%. Mild left ventricular diastolic dysfunction. Normal right ventricular structure and function. Mild mitral regurgitation. No pulmonary hypertension. Left Ventricular Wall Motion: Rest Echo Findings All wall segments showed normal motion. Findings: Study Quality * Technically adequate exam. ECG Findings * Normal sinus rhythm. Left Ventricle * LVEF 60%. * Normal LV chamber size, wall thickness and function. * Mild left ventricular diastolic dysfunction. Right Ventricle * Normal right ventricular structure and function. Left Atrium * Moderately dilated left atrium. Right Atrium * Normal right atrial size. Aortic Valve * No aortic regurgitation. * Trileaflet aortic valve. * Normal aortic valve structure. * No aortic stenosis. Mitral Valve * Normal mitral valve structure. * No mitral stenosis. * Mild mitral regurgitation. Tricuspid Valve * Normal tricuspid valve structure. * Trace tricuspid regurgitation. * Estimated RA pressure is 3 mmHg. * Estimated RVSP is 32 mmHg. * No pulmonary hypertension. Pulmonic Valve * Pulmonic valve is not well visualized. * No pulmonic stenosis. * No pulmonic regurgitation. Pulmonary Artery * Pulmonary artery not well visualized. Aorta * Normally sized aortic root. Pericardium * There is no pericardial effusion present. Interatrial Septum * No evidence of PFO by color Doppler. IVC * Normal IVC dimensions and inspiratory collapse. - Attending Attestation I have seen and examined pt independently. I have discussed with Resident physician Dr Friend regarding the management plan, agree with the documentation.
[2017-09-25] MEDS ORDERED: Acetaminophen 325 MG TABLET PO PRN (03:53)
[2017-09-25] MEDS ORDERED: Ondansetron ODT 4 MG TAB.RAPDIS SL PRN (03:53)
[2017-09-25] MEDS ORDERED: Naloxone 0.4 MG/ML INJ IVP PRN (03:53)
[2017-09-25] MEDS: Gabapentin 300 MG CAPSULE PO SCH ×2 (05:04→21:02)
[2017-09-25] MEDS: *HR* Heparin 5,000 UNIT/ML VIAL SQ SCH ×2 (05:04→17:10)
[2017-09-25] MEDS ORDERED: Regadenoson 0.4 MG/5 ML SYRINGE IVP ONE (06:13)
[2017-09-25 07:43] LABS: Basophils % 0.4 %; Hematocrit 37.4 % (35.3-44.9); Hemoglobin 11.9 g/dL (11.5-15.4); Immature Granulocytes % 0.5 % (0-4); Lymphocytes # 0.7 K/mcL (0.6-4.6); Mean Corpuscular HGB Conc 31.8 g/dL (31.6-35.5); Mean Corpuscular Hemoglobin 27.5 pg (28.0-33.3); Mean Corpuscular Volume 86.6 fL (83.0-100.0); Mean Platelet Volume 9.9 fL (9.4-12.4); Monocytes # 0.1 K/mcL (0.0-1.3); Monocytes % 0.9 %; Neutrophils # 4.7 K/mcL (1.6-8.9); Platelet Count 337 K/mcL (140-400); Red Blood Count 4.32 M/mcL (3.82-4.97); Red Cell Distribution Width 12.6 % (11.5-14.5); Segmented Neutrophils % 86.2 %
[2017-09-25 07:52] LABS: BUN/Creatinine Ratio 15 (6-26); Blood Urea Nitrogen 14 mg/dL (8-23); Calcium 8.7 mg/dL (8.6-10.3); Carbon Dioxide 23 mEq/L (23-29); Chloride 102 mEq/L (98-107); Glucose 189 mg/dL (70-105); Osmolality,Calculated 290 (280-300); Potassium 3.5 mEq/L (3.5-5.1); Sodium 137 mEq/L (136-145); eGFR For African Americans > 60 (> 60); eGFR For Non-African Americans > 60 (> 60)
[2017-09-25] MEDS: Aspirin 81 MG TAB.CHEW PO SCH (11:13)
[2017-09-25] MEDS: Tiotropium 18 MCG inhalation IH SCH ×2 (11:31→12:06)
[2017-09-25] MEDS: FLUoxetine 20 MG CAPSULE PO SCH (12:15)
--- NOTE | 2017-09-25 17:14 | Event Note ---
Date of Encounter: 09/25/17 Time of Encounter: 17:11 Chart reviewed 1. Chest pain: ECG shows ST depression in inferior/lateral/septal leads, similar in presentation/documentation in ECG February 2017. 2016 stress test was negative, with gated EF of >70. With recurrent chest pain Risk factors of former smoker, HTN, HLD. While low likelihood ACS, will request echocardiogram and stress test. NPO after midnight, not on nitrates or nicotine patch. 2. Hypertension: per hx. BP controlled. Continue home BP medications. Monitor BP and titrate PRN 3. COPD: no exacerbation. Continuing Spiriva and Albuterol. PRN O2 Titration. 4 DVT prophylaxis: Heparin
--- NOTE | 2017-09-25 20:08 | Electrocardiograph Report ---
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
[2017-09-26] MEDS: *HR* Heparin 5,000 UNIT/ML VIAL SQ SCH ×2 (05:11→16:53)
[2017-09-26 05:49] LABS: Hematocrit 36.4 % (35.3-44.9); Hemoglobin 11.9 g/dL (11.5-15.4); Mean Corpuscular HGB Conc 32.7 g/dL (31.6-35.5); Mean Corpuscular Hemoglobin 28.8 pg (28.0-33.3); Mean Corpuscular Volume 88.1 fL (83.0-100.0); Mean Platelet Volume 10.3 fL (9.4-12.4); Platelet Count 322 K/mcL (140-400); Red Blood Count 4.13 M/mcL (3.82-4.97)
[2017-09-26 05:55] LABS: Hemoglobin A1C 5.5 %
[2017-09-26 06:04] LABS: Chol/HDL Ratio 3.1 (0-4.9)
[2017-09-26] MEDS ORDERED: Regadenoson 0.4 MG/5 ML SYRINGE IVP ONE (07:08)
[2017-09-26] MEDS: FLUoxetine 20 MG CAPSULE PO SCH (09:25)
[2017-09-26] MEDS: Aspirin 81 MG TAB.CHEW PO SCH (09:25)
[2017-09-26] MEDS: Tiotropium 18 MCG inhalation IH SCH (10:30)
[2017-09-26] MEDS ORDERED: Dextrose Gel 15 GM/37.5 ML TUBE PO PRN ×2 (17:49)
[2017-09-26] MEDS ORDERED: D5% in Water 1,000 ML IVC PRN (17:49)
[2017-09-26] MEDS ORDERED: *HR* Dextrose 50 % in Water (Syg) 50 ML SYRINGE IVP PRN (17:49)
--- NOTE | 2017-09-26 17:49 | Internal Med Progress Note ---
Date of Encounter: 09/26/17 Time of Encounter: 17:47 - Assessment and plan (1) Chest pain Current Visit: Yes Status: Acute Assessment and plan: ECG shows ST depression in inferior/lateral/septal leads, similar in presentation/documentation in ECG February 2017. Troponin negative \ Complete second part of stress test in the morning Echogram shows an ejection fraction of 60% with no wall motion abnormalities Atypical clinical picture with pain radiating to both arms, worse with deep inspiration and movement. Denies mechanical trauma/exertion/recent illness. Past workup for ischemia in February 2017 with pharmacologic stress test was negative, with gated EF of >70% Has risk factors of former smoker, HTN, HLD. Qualifiers: Chest pain type: chest pain on breathing Qualified Code(s): R07.1 - Chest pain on breathing; R07.81 - Pleurodynia (2) Hypertension Current Visit: No Status: Acute Assessment and plan: Stable Qualifiers: Hypertension type: essential hypertension Qualified Code(s): I10 - Essential (primary) hypertension (3) Diabetes Current Visit: No Status: Acute Assessment and plan: Insulin sliding scale Qualifiers: Diabetes mellitus type: type 2 Diabetes mellitus complication status: without complication Diabetes mellitus terminal carman insulin use: without usp use Qualified Code(s): E11.9 - Type 2 diabetes mellitus without complications (4) COPD (chronic obstructive pulmonary disease) Current Visit: No Status: Acute Assessment and plan: Stable, no exacerbation Qualifiers: COPD type: chronic bronchitis Chronic bronchitis type: unspecified Qualified Code(s): J42 - Unspecified chronic bronchitis (5) ST segment changes on electrocardiogram Current Visit: Yes Status: Acute - Subjective Interval history: Denies any chest pain, shortness of breath, no abdominal pain, no dysuria, no dizziness or fevers - Constitutional Vitals: Temp Pulse Resp BP Pulse Ox 97.7 F 63 18 109/71 93 09/26/17 15:27 09/26/17 15:27 09/26/17 15:27 09/26/17 15:27 09/26/17 15:27 General appearance: Present: A&O X 3, no acute distress, obese - Head Head exam: Present: atraumatic, normocephalic - Eye Eye exam: Present: PERRL, conjuntiva pink, sclera anicteric Pupils: Present: PERRL - Neck Neck exam general surgery: Present: supple, trachea midline. Absent: lymphadenopathy - Respiratory Respiratory exam: Present: CTAB. Absent: accessory muscle use, rales, rhonchi, wheezes - Cardiovascular Cardiovascular exam: Present: RRR, +S1, +S2. Absent: diastolic murmur, gallop, rubs, systolic murmur - GI/Abdominal GI/Abdominal exam: Present: normal bowel sounds, soft, no peritoneal signs. Absent: distended, tenderness - Extremities Exam Extremities exam: Present: warm, radial pulses palpable and symmetrical. Absent : calf tenderness, cyanotic, pedal edema - Neurological Exam Neurological exam: Present: CN II-XII intact, oriented X3, no focal deficits. Absent: pronater drift, facial droop, speech deficit - Skin Skin exam: Present: dry, intact Internal Medicine: Result - Labs CBC & Chem 7: 09/26/17 05:07 09/25/17 07:20 Labs: Short CBC 09/26/17 Range/Units 05:07 WBC 11.9 H D (4.3-11.1) K/mcL Hgb 11.9 (11.5-15.4) g/dL Hct 36.4 (35.3-44.9) % Plt Count 322 (140-400) K/mcL - ABG Interpretation ABG results: PT/INR, D-dimer PT 11.6 Seconds (9.4-12.1) 09/24/17 23:04 Consult Discharge Plan - Plan Referrals: NONE,PCP [Primary Care Provider] -
[2017-09-26] MEDS ORDERED: Insulin LISPRO 300 UNITS/3 ML VIAL SQ SCH (21:00)
[2017-09-26] MEDS: Gabapentin 300 MG CAPSULE PO SCH (21:53)
[2017-09-27] MEDS: *HR* Heparin 5,000 UNIT/ML VIAL SQ SCH (05:12)
[2017-09-27] MEDS: Insulin LISPRO 300 UNITS/3 ML VIAL SQ SCH ×2 (07:33→12:38)
[2017-09-27] MEDS: FLUoxetine 20 MG CAPSULE PO SCH (08:49)
[2017-09-27] MEDS: Aspirin 81 MG TAB.CHEW PO SCH (08:50)
[2017-09-27] MEDS: Tiotropium 18 MCG inhalation IH SCH (10:36)
[2017-09-27 11:08] VITALS: BP 103/71
--- NOTE | 2017-09-27 14:21 | Discharge Summary ---
Date of Encounter: 09/27/17 Time of Encounter: 14:14 - Discharge Diagnosis (1) Chest pain Priority: Primary Status: Acute Qualifiers: Chest pain type: chest pain on breathing Qualified Code(s): R07.1 - Chest pain on breathing; R07.81 - Pleurodynia (2) Hypertension Priority: Secondary Status: Acute Qualifiers: Hypertension type: essential hypertension Qualified Code(s): I10 - Essential (primary) hypertension (3) Diabetes Priority: Secondary Status: Acute Qualifiers: Diabetes mellitus type: type 2 Diabetes mellitus complication status: without complication Diabetes mellitus intermission coordinator insulin use: without senior living use Qualified Code(s): E11.9 - Type 2 diabetes mellitus without complications (4) COPD (chronic obstructive pulmonary disease) Priority: Secondary Status: Acute Qualifiers: COPD type: chronic bronchitis Chronic bronchitis type: unspecified Qualified Code(s): J42 - Unspecified chronic bronchitis (5) ST segment changes on electrocardiogram Priority: Primary Status: Acute - Discharge Medications Home Medications: Aspirin 81 mg PO DAILY 12/22/15 [History] Atenolol [Tenormin] 25 mg PO DAILY 12/22/15 [History] Cyanocobalamin (Vitamin B-12) [Vitamin B-12] 1,000 mcg SL DAILY 12/22/15 [ History] FLUoxetine HCl [Prozac] 20 mg PO DAILY 12/22/15 [History] Furosemide [Lasix] 20 mg PO DAILY 12/22/15 [History] Gabapentin [Neurontin] 300 mg PO HS 12/22/15 [History] Simvastatin [Zocor] 40 mg PO HS 12/22/15 [History] Omeprazole [PriLOSEC] 20 mg PO DAILY #21 cap 09/11/16 [Rx] Ergocalciferol (VITAMIN D2) [Vitamin D2] 2,000 units PO DAILY 03/04/17 [History] Loratadine [Claritin] 10 mg PO DAILY 03/04/17 [History] Albuterol Sulfate [Albuterol Inhaler] 2 puff IH QID PRN #1 inhaler 03/07/17 [Rx] Tiotropium [Spiriva] 18 mcg IH DAILYR #1 inh 03/07/17 [Rx] Allergies/Adverse Reactions: 3 Allergy/AdvReac Type Severity Reaction Status Date / Time Amoxicillin Allergy Rash Verified 09/24/17 22:37 codeine Allergy Rash Verified 09/24/17 22:37 diphenhydramine Allergy Difficulty Verified 09/24/17 22:37 [From Benadryl] Breathing Procedures/tests Complete & Pending: Procedures Performed prior 72 hours Category Date Time Status NM [place] perf SPECT multi [NM] Routine Exams 09/25/17 03:59 Taken EV echocardiogram Routine Y 09/25/17 03:58 Completed SP pharm nuclear stress Routine Y 09/26/17 07:15 Completed Date of admission: 09/25/17 01:16 Primary care physician: PCP NONE - Patient Status Disposition: Home, Self-Care Condition: Good Overall status at discharge: patient is back to baseline - Discharge Instructions Follow Up With: NONE,PCP [Primary Care Provider] - Additional Instructions: Follow-up with primary care physician within the next 7 days - Diet and Activity Activity: increase activity as tolerated Diet: low fat, low cholesterol Hospital course: Ms. Grissom is a 67 year old female with a PMHx COPD non-oxygen dependent, GERD, HTN, HLD, and tobacco use (1/2ppd from quit in 30s), presented with onset of chest pain at 199909/24/17, . Pain was worse with breathing, movement, and radiated to both left and right arms. Troponins were negative , ECG showed ST depression in inferior, lateral, and septal leads. Similar in presentation to ECG taken in February of 2017. Pharmacologic stress test was performed at the time which was negative for ischemia. Gated EF >70%. Patient feels better at time of encounter, chest discomfort mild with deep inspiration and movement, though continues at rest. Atypical clinical picture with pain radiating to both arms, worse with deep inspiration and movement. Denies mechanical trauma/exertion/recent illness Stress test showed no evidence of ischemia or infarct Echogram showed an ejection fraction of 60% with no wall motion abnormalities . Stable to be discharged - Time Spent with Patient Total time spent providing and/or coordinating discharge services: Greater than 30 minutes (40 min) - Constitutional Vitals: Temp Pulse Resp BP Pulse Ox 98.4 F 66 15 103/71 93 09/27/17 11:07 09/27/17 11:07 09/27/17 11:07 09/27/17 11:07 09/27/17 11:07 General appearance: Present: A&O X 3, no acute distress, obese Exam: - Head Head exam: Present: atraumatic, normocephalic - Eye Eye exam: Present: PERRL, conjuntiva pink, sclera anicteric Pupils: Present: PERRL - Neck Neck exam general surgery: Present: supple, trachea midline. Absent: lymphadenopathy - Respiratory Respiratory exam: Present: CTAB. Absent: accessory muscle use, rales, rhonchi, wheezes - Cardiovascular Cardiovascular exam: Present: RRR, +S1, +S2. Absent: diastolic murmur, gallop, rubs, systolic murmur - GI/Abdominal GI/Abdominal exam: Present: normal bowel sounds, soft, no peritoneal signs. Absent: distended, tenderness - Extremities Exam Extremities exam: Present: warm, radial pulses palpable and symmetrical. Absent : calf tenderness, cyanotic, pedal edema - Neurological Exam Neurological exam: Present: CN II-XII intact, oriented X3, no focal deficits. Absent: pronater drift, facial droop, speech deficit - Skin Skin exam: Present: dry, intact
== END 2017-09-27 15:00 | disposition home or self-care (01) ==
LOC: 3BNU 22:26 → EMEROO 22:26 → SUATTDRO 09-25 01:16 → 3BNU 09-25 04:50
PROVIDERS: ADMIT Internal Medicine; ATTEND Internal Medicine

== ENCOUNTER 2018-01-02 04:57 | Observation (INO) ==
--- NOTE | 2018-01-02 05:01 | Emergency Department Note ---
Disposition Clinical Impression: Confusion Disposition: Admitted As Inpatient Condition: Good Referrals: NONE,PCP [Primary Care Provider] - Forms: ED Satisfaction Letter Time of Disposition: 06:53 General Adult HPI - General Chief complaint: ED Altered Mental Status Stated complaint: ''disoriented" AMS Time Seen by Provider: 01/02/18 05:00 Source: patient, EMS Mode of arrival: EMS Limitations: no limitations Nursing Notes Reviewed: Yes Vital Signs Reviewed: Yes - History of Present Illness HPI Narrative: Patient is a 67-year-old female with past medical history of hypertension, hyperlipidemia, COPD. She presents today due to feeling disoriented. Patient states that she went to bed around 8 PM last night. Around 3:30 AM, she woke up and felt disoriented, felt like she was slurring her speech. She says that she felt confused, was having some mild chest discomfort, mild shortness of breath above her baseline with COPD. She also admitted to nausea, mild generalized abdominal discomfort, diarrhea. She also has a generalized headache that she states has been present for the past 2 days, was gradual in onset. Denies any neck stiffness or neck pain, any numbness, tingling, weakness. Denies any fevers. She denies any falls. Denies any history of stroke, SD, stents. - Related Data Home Medications Medication Instructions Recorded Confirmed Aspirin 81 mg PO DAILY 12/22/15 01/02/18 Atenolol [Tenormin] 25 mg PO DAILY 12/22/15 01/02/18 Cyanocobalamin (Vitamin B-12) 1,000 mcg SL DAILY 12/22/15 01/02/18 [Vitamin B-12] FLUoxetine HCl [Prozac] 20 mg PO DAILY 12/22/15 01/02/18 Furosemide [Lasix] 20 mg PO DAILY 12/22/15 01/02/18 Gabapentin [Neurontin] 300 mg PO HS 12/22/15 01/02/18 Simvastatin [Zocor] 40 mg PO HS 12/22/15 01/02/18 Ergocalciferol (VITAMIN D2) 2,000 units PO DAILY 03/04/17 01/02/18 [Vitamin D2] Loratadine [Claritin] 10 mg PO DAILY 03/04/17 01/02/18 Previous Rx's Medication Instructions Recorded Omeprazole [PriLOSEC] 20 mg PO DAILY #21 cap 09/11/16 Albuterol Sulfate [Albuterol 2 puff IH QID PRN #1 inhaler 03/07/17 Inhaler] Tiotropium [Spiriva] 18 mcg IH DAILYR #1 inh 03/07/17 Allergies Allergy/AdvReac Type Severity Reaction Status Date / Time Amoxicillin Allergy Rash Verified 01/02/18 05:02 codeine Allergy Rash Verified 01/02/18 05:02 diphenhydramine Allergy Difficulty Verified 01/02/18 05:02 [From Benadryl] Breathing All systems ED: reviewed and negative except as stated. Constitutional: Denies: fever Cardiovascular: Reports: chest pain Respiratory: Reports: dyspnea Gastrointestinal: Reports: abdominal pain, nausea, diarrhea. Denies: vomiting, constipation Genitourinary: Denies: urgency, dysuria, frequency Musculoskeletal: Denies: neck pain Neurological: Reports: headache. Denies: weakness, numbness, paresthesias Past Medical History - Past Medical History Attestation: Yes The following information was validated with the patient. Source: patient Medical history: Reports: COPD, GERD, hyperlipidemia, hypertension, other Surgical history: Reports: knee replacement Psychiatric history: Reports: depression - Social History Smoking Status: Former smoker Smokeless Tobacco Status: No Alcohol use: Reports: rarely Drug use: Reports: none Physical Exam - General Limitations: no limitations General appearance: alert, in no apparent distress - Head Head exam: atraumatic, normocephalic, normal inspection - Eye Eye exam: Present: normal appearance, PERRL, EOMI - ENT ENT exam: normal exam, normal oropharynx, mucous membranes moist - Neck Neck exam: Present: normal inspection, full ROM, trachea midline - Chest Chest inspection: Present: normal inspection, symmetric chest wall rise - Respiratory Respiratory exam: Present: normal lung sounds bilaterally - Cardiovascular Cardiovascular exam: Present: regular rate, normal rhythm, normal heart sounds - Abdominal Exam Abdominal exam: Present: soft, Non-Tender. Absent: tenderness, distention, guarding, rebound, rigidity - Extremities Exam Extremities exam: Present: normal inspection, full ROM. Absent: tenderness, pedal edema - Neurological Exam Neurological exam: Present: alert, oriented X3, CN II-XII intact. Absent: motor sensory deficit - Psychiatric Psychiatric exam: Present: normal affect, normal mood - Skin Skin exam: Present: warm, dry, intact, normal color Course Course Narrative: Vitals within normal limits. Physical exam shows heart regular rate and rhythm , lungs clear to auscultation, abdomen soft and nontender. No focal neurologic deficits. Patient is alert and oriented 3, no focal neurologic deficits. Patient's last known well was 8 PM the night before. No stroke alert called at this time. NIH currently 0. We will perform CT the head, basic labs, troponin , chest x-ray, EKG. Patient also requesting Tylenol for headache. 06:51 basic labs show no major abnormalities. Urinalysis shows likely contamination, will not treat the patient has no current urinary symptoms. Chest x-ray negative for any acute cardio pulmonary process. Head CT negative for any acute intracranial process. EKG shows no acute ST changes. Due to concern for slurred speech and feeling disoriented this morning, concerned the patient needs further CVA workup. Patient was agreeable with being admitted at this time, recommended MRI of the head and MRA of the neck. Chest X-Ray 01/02/18 05:08 IMPRESSION: No acute process. D/ / Rena Montalvo MD / Rena Montalvo MD Interpreting Provider: Rena Montalvo MD Head CT 01/02/18 05:08 IMPRESSION: No acute intracranial abnormality. D/ / Rena Montalvo MD / Rena Montalvo MD Interpreting Provider: Rena Montalvo MD Vital Signs Temperature 99.1 F 01/02/18 05:02 Pulse Rate 69 01/02/18 05:02 Respiratory Rate 17 01/02/18 05:02 Blood Pressure 126/87 01/02/18 05:02 O2 Sat by Pulse Oximetry 96 01/02/18 05:02 Temperature 99.1 F 01/02/18 05:02 Pulse Rate 69 01/02/18 05:02 Respiratory Rate 17 01/02/18 05:02 Blood Pressure 126/87 01/02/18 05:02 O2 Sat by Pulse Oximetry 96 01/02/18 05:02 Oxygen Delivery Oxygen Delivery Room Air Medical Decision Making - MDM Narrative Medical decision making narrative: Vitals within normal limits. Physical exam shows heart regular rate and rhythm , lungs clear to auscultation, abdomen soft and nontender. No focal neurologic deficits. Patient is alert and oriented 3, no focal neurologic deficits. Patient's last known well was 8 PM the night before. No stroke alert called at this time. NIH currently 0. We will perform CT the head, basic labs, troponin , chest x-ray, EKG. Patient also requesting Tylenol for headache. 06:51 basic labs show no major abnormalities. Urinalysis shows likely contamination, will not treat the patient has no current urinary symptoms. Chest x-ray negative for any acute cardio pulmonary process. Head CT negative for any acute intracranial process. EKG shows no acute ST changes. Due to concern for slurred speech and feeling disoriented this morning, concerned the patient needs further CVA workup. Patient was agreeable with being admitted at this time, recommended MRI of the head and MRA of the neck. - Medical Records Medical records reviewed: Yes I reviewed the patient's medical records. - Lab Data Lab results reviewed: Yes I reviewed the patient's lab results. Result diagrams: 01/02/18 05:07 01/02/18 05:07 Lab Results 01/02/18 01/02/18 01/02/18 Range/Units 05:07 05:07 05:07 WBC 7.9 (4.3-11.1) K/mcL RBC 4.51 (3.82-4.97) M/mcL Hgb 12.9 (11.5-15.4) g/dL Hct 39.4 (35.3-44.9) % MCV 87.4 (83.0-100.0) fL MCH 28.6 (28.0-33.3) pg MCHC 32.7 (31.6-35.5) g/dL RDW 13.4 (11.5-14.5) % Plt Count 355 (140-400) K/mcL MPV 9.6 (9.4-12.4) fL Immature Gran % 0.3 (0-4) % Seg Neutrophils % 56.0 % Lymphocytes % 30.4 % Monocytes % 10.5 % Eosinophils % 2.0 % Basophils % 0.8 % Neutrophils # 4.4 (1.6-8.9) K/mcL Lymphocytes # 2.4 (0.6-4.6) K/mcL Monocytes # 0.8 (0.0-1.3) K/mcL Eosinophils # 0.2 (0.0-0.6) K/mcL Basophils # 0.1 (0.0-0.2) K/mcL PT 10.8 (9.4-12.1) Seconds INR 1.0 APTT 29.6 (26.0-36.0) Seconds Sodium 138 (136-145) mEq/L Potassium 4.3 (3.5-5.1) mEq/L Chloride 102 (98-107) mEq/L Carbon Dioxide 29 (23-29) mEq/L BUN 22 (8-23) mg/dL Creatinine 0.98 (0.60-1.20) mg/dL Est GFR ( Amer) > 60 (> 60) Est GFR (Non-Af Amer) 57 L (> 60) BUN/Creatinine Ratio 22 (6-26) Glucose 104 (70-105) mg/dL Calculated Osmolality 290 (280-300) Calcium 9.1 (8.6-10.3) mg/dL Troponin I < 0.03 (< 0.04) ng/mL Urine Color (Yellow) Urine Clarity (Clear) Urine pH (5.0-8.0) pH Units Ur Specific [place] (1.010-1.025) Urine Protein (Neg-Trace) mg/dL Urine Glucose (UA) (Normal) mg/dL Urine Ketones (Negative) mg/dL Urine Blood (Negative) Urine Nitrite (Negative) Urine Bilirubin (Negative) Urine Urobilinogen (Normal) mg/dL Ur Leukocyte Esterase (Negative) Urine Microscopic RBC (0-3) per hpf Urine Microscopic WBC (0-3) per hpf Ur Squamous Epith Cells (None-Few) per lpf Urine Bacteria (None-Few) per hpf Hyaline Casts (None-Few) per lpf Ur Culture Indicated? (NO) 01/02/18 Range/Units 06:05 WBC (4.3-11.1) K/mcL RBC (3.82-4.97) M/mcL Hgb (11.5-15.4) g/dL Hct (35.3-44.9) % MCV (83.0-100.0) fL MCH (28.0-33.3) pg MCHC (31.6-35.5) g/dL RDW (11.5-14.5) % Plt Count (140-400) K/mcL MPV (9.4-12.4) fL Immature Gran % (0-4) % Seg Neutrophils % % Lymphocytes % % Monocytes % % Eosinophils % % Basophils % % Neutrophils # (1.6-8.9) K/mcL Lymphocytes # (0.6-4.6) K/mcL Monocytes # (0.0-1.3) K/mcL Eosinophils # (0.0-0.6) K/mcL Basophils # (0.0-0.2) K/mcL PT (9.4-12.1) Seconds INR APTT (26.0-36.0) Seconds Sodium (136-145) mEq/L Potassium (3.5-5.1) mEq/L Chloride (98-107) mEq/L Carbon Dioxide (23-29) mEq/L BUN (8-23) mg/dL Creatinine (0.60-1.20) mg/dL Est GFR ( Amer) (> 60) Est GFR (Non-Af Amer) (> 60) BUN/Creatinine Ratio (6-26) Glucose (70-105) mg/dL Calculated Osmolality (280-300) Calcium (8.6-10.3) mg/dL Troponin I (< 0.04) ng/mL Urine Color Yellow (Yellow) Urine Clarity Clear (Clear) Urine pH 7.5 (5.0-8.0) pH Units Ur Specific [place] 1.020 (1.010-1.025) Urine Protein Negative (Neg-Trace) mg/dL Urine Glucose (UA) Normal (Normal) mg/dL Urine Ketones Negative (Negative) mg/dL Urine Blood Negative (Negative) Urine Nitrite Negative (Negative) Urine Bilirubin Negative (Negative) Urine Urobilinogen 4.0 H (Normal) mg/dL Ur Leukocyte Esterase Moderate H (Negative) Urine Microscopic RBC 5-15 H (0-3) per hpf Urine Microscopic WBC 15-30 H (0-3) per hpf Ur Squamous Epith Cells Many H (None-Few) per lpf Urine Bacteria None Seen (None-Few) per hpf Hyaline Casts None Seen (None-Few) per lpf Ur Culture Indicated? NO. A (NO) - Radiology Data Radiology results reviewed: Yes I reviewed the patient's radiology results. Chest X-Ray 01/02/18 05:08 IMPRESSION: No acute process. D/ / Rena Montalvo MD / Rena Montalvo MD Interpreting Provider: Rena Montalvo MD Head CT 01/02/18 05:08 IMPRESSION: No acute intracranial abnormality. D/ / Rena Montalvo MD / Rena Montalvo MD Interpreting Provider: Rena Montalvo MD - EKG Data EKG #1 EKG attestation: Yes I reviewed and interpreted this EKG. EKG results narrative: 01/02/2018 at 05:11. Normal sinus rhythm. Rate 68. [place] 144. QRS 81. QTC 470. Normal axis. No acute ST elevation or depression. S.B.A.R. - S.B.A.R. Situation: Demographics, MOA Background: Presenting Complaint, Relevant PMH, Meds, & Allergies Assessment: Vital Signs, Course and respsone to treatment, Exam Concerns, Patient/Family Expectation, Pertinant Lab Results Recommendation: Barrier(s) to disposition, Recommendation based on pending studies, treatments, or consults NIH Stroke Scale - Level of Consciousness LOC: Alert - LOC Questions LOC Questions: Answers both correctly - LOC Commands LOC Commands: Performs both correctly - Best Gaze Best Gaze: Normal - Visual Visual: No visual loss - Facial Palsy Facial Palsy: Normal - Motor Arms Motor Arm-Left: No drift for 10 seconds Motor Arm-Right: No drift for 10 seconds - Motor Legs Motor Leg-Left: No drift for 5 seconds Motor Leg-Right: No drift for 5 seconds - Limb Ataxia Limb Ataxia: Absent of affected limb too weak to perform exam - Sensory Sensory: Normal - Best Language Best Language: No aphasia - Dysarthria Dysarthria: Normal - Extinction and Inattention Extinction and Inattention: Normal - NIHSS Total Score NIHSS Total Score: 0
[2018-01-02 05:43] LABS: Basophils # 0.1 K/mcL (0.0-0.2); Basophils % 0.8 %; Eosinophils # 0.2 K/mcL (0.0-0.6); Hematocrit 39.4 % (35.3-44.9); Hemoglobin 12.9 g/dL (11.5-15.4); Immature Granulocytes % 0.3 % (0-4); Lymphocytes # 2.4 K/mcL (0.6-4.6); Lymphocytes % 30.4 %; Mean Corpuscular HGB Conc 32.7 g/dL (31.6-35.5); Mean Corpuscular Hemoglobin 28.6 pg (28.0-33.3); Mean Corpuscular Volume 87.4 fL (83.0-100.0); Mean Platelet Volume 9.6 fL (9.4-12.4); Monocytes # 0.8 K/mcL (0.0-1.3); Monocytes % 10.5 %; Neutrophils # 4.4 K/mcL (1.6-8.9); Platelet Count 355 K/mcL (140-400); Red Blood Count 4.51 M/mcL (3.82-4.97); Red Cell Distribution Width 13.4 % (11.5-14.5)
[2018-01-02 05:47] LABS: Prothrombin Time 10.8 Seconds (9.4-12.1)
[2018-01-02 05:49] LABS: Activated Partial Thrombo Time 29.6 Seconds (26.0-36.0)
[2018-01-02] MEDS ORDERED: Aspirin 325 MG TABLET PO ONE (05:54)
--- NOTE | 2018-01-02 05:54 | Emergency Department Note ---
Disposition Clinical Impression: Confusion Disposition: Admitted As Inpatient Condition: Good General Adult HPI - General Chief complaint: ED Altered Mental Status Stated complaint: ''disoriented" AMS Time Seen by Provider: 01/02/18 05:00 Source: patient, EMS Mode of arrival: EMS Limitations: no limitations - History of Present Illness Pain Scale: 10 - Related Data Home Medications Medication Instructions Recorded Confirmed RX: Aspirin 81 mg PO DAILY 12/22/15 01/02/18 RX: Cyanocobalamin (Vitamin B-12) 1,000 mcg SL DAILY 12/22/15 01/02/18 [Vitamin B-12] RX: FLUoxetine HCl [Prozac] 40 mg PO DAILY 12/22/15 01/02/18 RX: Furosemide [Lasix] 20 mg PO DAILY 12/22/15 01/02/18 RX: Gabapentin [Neurontin] 300 mg PO HS 12/22/15 01/02/18 RX: Simvastatin [Zocor] 40 mg PO HS 12/22/15 01/02/18 RX: Ergocalciferol (VITAMIN D2) 2,000 units PO DAILY 03/04/17 01/02/18 [Vitamin D2] RX: Loratadine [Claritin] 10 mg PO DAILY 03/04/17 01/02/18 Previous Rx's Medication Instructions Recorded RX: Omeprazole [PriLOSEC] 20 mg PO DAILY #21 cap 09/11/16 RX: Albuterol Sulfate [Albuterol 2 puff IH QID PRN #1 inhaler 03/07/17 Inhaler] RX: Tiotropium [Spiriva] 18 mcg IH DAILYR #1 inh 03/07/17 RX: Atenolol [Tenormin] 12.5 mg PO DAILY #30 tablet 01/03/18 Allergies Allergy/AdvReac Type Severity Reaction Status Date / Time Amoxicillin Allergy Rash Verified 01/02/18 05:02 codeine Allergy Rash Verified 01/02/18 05:02 diphenhydramine Allergy Difficulty Verified 01/02/18 05:02 [From Benadryl] Breathing Constitutional: Denies: fever Cardiovascular: Reports: chest pain Respiratory: Reports: dyspnea Gastrointestinal: Reports: abdominal pain, nausea, diarrhea. Denies: vomiting, constipation Genitourinary: Denies: urgency, dysuria, frequency Musculoskeletal: Denies: neck pain Neurological: Reports: headache. Denies: weakness, numbness, paresthesias Past Medical History - Past Medical History Medical history: Reports: COPD, GERD, hyperlipidemia, hypertension, other Surgical history: Reports: knee replacement Psychiatric history: Reports: depression - Social History Smoking Status: Former smoker Smokeless Tobacco Status: No Alcohol use: Reports: rarely Drug use: Reports: none Physical Exam - General Limitations: no limitations General appearance: alert, in no apparent distress Course Vital Signs Temperature 99.1 F 01/02/18 05:02 Pulse Rate 69 01/02/18 05:02 Respiratory Rate 17 01/02/18 05:02 Blood Pressure 126/87 01/02/18 05:02 O2 Sat by Pulse Oximetry 96 01/02/18 05:02 Temperature 98.1 F 01/03/18 15:47 Pulse Rate 65 01/03/18 15:47 Respiratory Rate 17 01/03/18 15:47 Blood Pressure 123/84 01/03/18 15:47 O2 Sat by Pulse Oximetry 94 01/03/18 15:47 Oxygen Delivery Oxygen Delivery Room Air Medical Decision Making - Lab Data Result diagrams: 01/03/18 04:49 01/03/18 04:49 Lab Results 01/02/18 01/02/18 01/02/18 Range/Units 05:04 05:07 05:07 WBC 7.9 (4.3-11.1) K/mcL RBC 4.51 (3.82-4.97) M/mcL Hgb 12.9 (11.5-15.4) g/dL Hct 39.4 (35.3-44.9) % MCV 87.4 (83.0-100.0) fL MCH 28.6 (28.0-33.3) pg MCHC 32.7 (31.6-35.5) g/dL RDW 13.4 (11.5-14.5) % Plt Count 355 (140-400) K/mcL MPV 9.6 (9.4-12.4) fL Immature Gran % 0.3 (0-4) % Seg Neutrophils % 56.0 % Lymphocytes % 30.4 % Monocytes % 10.5 % Eosinophils % 2.0 % Basophils % 0.8 % Neutrophils # 4.4 (1.6-8.9) K/mcL Lymphocytes # 2.4 (0.6-4.6) K/mcL Monocytes # 0.8 (0.0-1.3) K/mcL Eosinophils # 0.2 (0.0-0.6) K/mcL Basophils # 0.1 (0.0-0.2) K/mcL PT 10.8 (9.4-12.1) Seconds INR 1.0 APTT 29.6 (26.0-36.0) Seconds Sodium (136-145) mEq/L Potassium (3.5-5.1) mEq/L Chloride (98-107) mEq/L Carbon Dioxide (23-29) mEq/L BUN (8-23) mg/dL Creatinine (0.60-1.20) mg/dL Est GFR ( Amer) (> 60) Est GFR (Non-Af Amer) (> 60) BUN/Creatinine Ratio (6-26) Glucose (70-105) mg/dL POC Glucose 105 H (70-99) mg/dL Calculated Osmolality (280-300) Calcium (8.6-10.3) mg/dL Troponin I (< 0.04) ng/mL Urine Color (Yellow) Urine Clarity (Clear) Urine pH (5.0-8.0) pH Units Ur Specific [place] (1.010-1.025) Urine Protein (Neg-Trace) mg/dL Urine Glucose (UA) (Normal) mg/dL Urine Ketones (Negative) mg/dL Urine Blood (Negative) Urine Nitrite (Negative) Urine Bilirubin (Negative) Urine Urobilinogen (Normal) mg/dL Ur Leukocyte Esterase (Negative) Urine Microscopic RBC (0-3) per hpf Urine Microscopic WBC (0-3) per hpf Ur Squamous Epith Cells (None-Few) per lpf Urine Bacteria (None-Few) per hpf Hyaline Casts (None-Few) per lpf Ur Culture Indicated? (NO) 01/02/18 01/02/18 Range/Units 05:07 06:05 WBC (4.3-11.1) K/mcL RBC (3.82-4.97) M/mcL Hgb (11.5-15.4) g/dL Hct (35.3-44.9) % MCV (83.0-100.0) fL MCH (28.0-33.3) pg MCHC (31.6-35.5) g/dL RDW (11.5-14.5) % Plt Count (140-400) K/mcL MPV (9.4-12.4) fL Immature Gran % (0-4) % Seg Neutrophils % % Lymphocytes % % Monocytes % % Eosinophils % % Basophils % % Neutrophils # (1.6-8.9) K/mcL Lymphocytes # (0.6-4.6) K/mcL Monocytes # (0.0-1.3) K/mcL Eosinophils # (0.0-0.6) K/mcL Basophils # (0.0-0.2) K/mcL PT (9.4-12.1) Seconds INR APTT (26.0-36.0) Seconds Sodium 138 (136-145) mEq/L Potassium 4.3 (3.5-5.1) mEq/L Chloride 102 (98-107) mEq/L Carbon Dioxide 29 (23-29) mEq/L BUN 22 (8-23) mg/dL Creatinine 0.98 (0.60-1.20) mg/dL Est GFR ( Amer) > 60 (> 60) Est GFR (Non-Af Amer) 57 L (> 60) BUN/Creatinine Ratio 22 (6-26) Glucose 104 (70-105) mg/dL POC Glucose (70-99) mg/dL Calculated Osmolality 290 (280-300) Calcium 9.1 (8.6-10.3) mg/dL Troponin I < 0.03 (< 0.04) ng/mL Urine Color Yellow (Yellow) Urine Clarity Clear (Clear) Urine pH 7.5 (5.0-8.0) pH Units Ur Specific [place] 1.020 (1.010-1.025) Urine Protein Negative (Neg-Trace) mg/dL Urine Glucose (UA) Normal (Normal) mg/dL Urine Ketones Negative (Negative) mg/dL Urine Blood Negative (Negative) Urine Nitrite Negative (Negative) Urine Bilirubin Negative (Negative) Urine Urobilinogen 4.0 H (Normal) mg/dL Ur Leukocyte Esterase Moderate H (Negative) Urine Microscopic RBC 5-15 H (0-3) per hpf Urine Microscopic WBC 15-30 H (0-3) per hpf Ur Squamous Epith Cells Many H (None-Few) per lpf Urine Bacteria None Seen (None-Few) per hpf Hyaline Casts None Seen (None-Few) per lpf Ur Culture Indicated? NO. A (NO) Attestation Statement - Attestation Attestation: I examined this patient and my medical decision-making was reviewed with the Resident Physician. I agree with the documented findings, disposition and treatment plan as described except to the extent set forth below. Findings consistent with acute onset of dizziness and altered mental status. This is now improving. We will proceed with admission for rule out CVA. Aspirin will be administered. No neurological deficits at the time of admission.
[2018-01-02 05:58] LABS: BUN/Creatinine Ratio 22 (6-26); Blood Urea Nitrogen 22 mg/dL (8-23); Calcium 9.1 mg/dL (8.6-10.3); Carbon Dioxide 29 mEq/L (23-29); Chloride 102 mEq/L (98-107); Glucose 104 mg/dL (70-105); Osmolality,Calculated 290 (280-300); Potassium 4.3 mEq/L (3.5-5.1); Sodium 138 mEq/L (136-145); Troponin I < 0.03 ng/mL (< 0.04); eGFR For African Americans > 60 (> 60); eGFR For Non-African Americans 57 (> 60)
[2018-01-02 06:13] LABS: Bilirubin,Urine Negative (Negative); Blood,Urine Negative (Negative); Clarity,Urine Clear (Clear); Color,Urine Yellow (Yellow); Glucose,Urine (UA) Normal (Normal); Ketones,Urine Negative (Negative); Leukocyte Esterase,Urine Moderate (Negative); Nitrite,Urine Negative (Negative); PH,Urine 7.5 pH Units (5.0-8.0); Protein,Urine Negative (Neg-Trace)
[2018-01-02 06:15] LABS: Bacteria,Urine None Seen per hpf (None-Few); Hyaline Casts,Urine None Seen per lpf (None-Few); Squamous Epithelial Cell,Urine Many per lpf (None-Few); WBC,Urine 15-30 per hpf (0-3)
--- NOTE | 2018-01-02 07:47 | Emergency Department Note ---
Disposition Clinical Impression: Confusion Disposition: Admitted As Inpatient Condition: Good Referrals: NONE,PCP [Primary Care Provider] - Forms: ED Satisfaction Letter General Adult HPI - General Chief complaint: ED Altered Mental Status Stated complaint: ''disoriented" AMS Time Seen by Provider: 01/02/18 05:00 Source: patient, EMS Mode of arrival: EMS Limitations: no limitations - History of Present Illness Pain Scale: 10 - Related Data Home Medications Medication Instructions Recorded Confirmed Aspirin 81 mg PO DAILY 12/22/15 01/02/18 Atenolol [Tenormin] 25 mg PO DAILY 12/22/15 01/02/18 Cyanocobalamin (Vitamin B-12) 1,000 mcg SL DAILY 12/22/15 01/02/18 [Vitamin B-12] FLUoxetine HCl [Prozac] 20 mg PO DAILY 12/22/15 01/02/18 Furosemide [Lasix] 20 mg PO DAILY 12/22/15 01/02/18 Gabapentin [Neurontin] 300 mg PO HS 12/22/15 01/02/18 Simvastatin [Zocor] 40 mg PO HS 12/22/15 01/02/18 Ergocalciferol (VITAMIN D2) 2,000 units PO DAILY 03/04/17 01/02/18 [Vitamin D2] Loratadine [Claritin] 10 mg PO DAILY 03/04/17 01/02/18 Previous Rx's Medication Instructions Recorded Omeprazole [PriLOSEC] 20 mg PO DAILY #21 cap 09/11/16 Albuterol Sulfate [Albuterol 2 puff IH QID PRN #1 inhaler 03/07/17 Inhaler] Tiotropium [Spiriva] 18 mcg IH DAILYR #1 inh 03/07/17 Allergies Allergy/AdvReac Type Severity Reaction Status Date / Time Amoxicillin Allergy Rash Verified 01/02/18 05:02 codeine Allergy Rash Verified 01/02/18 05:02 diphenhydramine Allergy Difficulty Verified 01/02/18 05:02 [From Benadryl] Breathing Constitutional: Denies: fever Cardiovascular: Reports: chest pain Respiratory: Reports: dyspnea Gastrointestinal: Reports: abdominal pain, nausea, diarrhea. Denies: vomiting, constipation Genitourinary: Denies: urgency, dysuria, frequency Musculoskeletal: Denies: neck pain Neurological: Reports: headache. Denies: weakness, numbness, paresthesias Past Medical History - Past Medical History Medical history: Reports: COPD, GERD, hyperlipidemia, hypertension, other Surgical history: Reports: knee replacement Psychiatric history: Reports: depression - Social History Smoking Status: Former smoker Smokeless Tobacco Status: No Alcohol use: Reports: rarely Drug use: Reports: none Physical Exam - General Limitations: no limitations General appearance: alert, in no apparent distress Course Vital Signs Temperature 99.1 F 01/02/18 05:02 Pulse Rate 69 01/02/18 05:02 Respiratory Rate 17 01/02/18 05:02 Blood Pressure 126/87 01/02/18 05:02 O2 Sat by Pulse Oximetry 96 01/02/18 05:02 Temperature 99.1 F 01/02/18 05:02 Pulse Rate 65 01/02/18 07:44 Respiratory Rate 18 01/02/18 07:44 Blood Pressure 105/64 01/02/18 07:44 O2 Sat by Pulse Oximetry 95 01/02/18 07:44 Oxygen Delivery Oxygen Delivery Room Air Medical Decision Making - Lab Data Result diagrams: 01/02/18 05:07 01/02/18 05:07 Lab Results 01/02/18 01/02/18 01/02/18 Range/Units 05:07 05:07 05:07 WBC 7.9 (4.3-11.1) K/mcL RBC 4.51 (3.82-4.97) M/mcL Hgb 12.9 (11.5-15.4) g/dL Hct 39.4 (35.3-44.9) % MCV 87.4 (83.0-100.0) fL MCH 28.6 (28.0-33.3) pg MCHC 32.7 (31.6-35.5) g/dL RDW 13.4 (11.5-14.5) % Plt Count 355 (140-400) K/mcL MPV 9.6 (9.4-12.4) fL Immature Gran % 0.3 (0-4) % Seg Neutrophils % 56.0 % Lymphocytes % 30.4 % Monocytes % 10.5 % Eosinophils % 2.0 % Basophils % 0.8 % Neutrophils # 4.4 (1.6-8.9) K/mcL Lymphocytes # 2.4 (0.6-4.6) K/mcL Monocytes # 0.8 (0.0-1.3) K/mcL Eosinophils # 0.2 (0.0-0.6) K/mcL Basophils # 0.1 (0.0-0.2) K/mcL PT 10.8 (9.4-12.1) Seconds INR 1.0 APTT 29.6 (26.0-36.0) Seconds Sodium 138 (136-145) mEq/L Potassium 4.3 (3.5-5.1) mEq/L Chloride 102 (98-107) mEq/L Carbon Dioxide 29 (23-29) mEq/L BUN 22 (8-23) mg/dL Creatinine 0.98 (0.60-1.20) mg/dL Est GFR ( Amer) > 60 (> 60) Est GFR (Non-Af Amer) 57 L (> 60) BUN/Creatinine Ratio 22 (6-26) Glucose 104 (70-105) mg/dL Calculated Osmolality 290 (280-300) Calcium 9.1 (8.6-10.3) mg/dL Troponin I < 0.03 (< 0.04) ng/mL Urine Color (Yellow) Urine Clarity (Clear) Urine pH (5.0-8.0) pH Units Ur Specific [place] (1.010-1.025) Urine Protein (Neg-Trace) mg/dL Urine Glucose (UA) (Normal) mg/dL Urine Ketones (Negative) mg/dL Urine Blood (Negative) Urine Nitrite (Negative) Urine Bilirubin (Negative) Urine Urobilinogen (Normal) mg/dL Ur Leukocyte Esterase (Negative) Urine Microscopic RBC (0-3) per hpf Urine Microscopic WBC (0-3) per hpf Ur Squamous Epith Cells (None-Few) per lpf Urine Bacteria (None-Few) per hpf Hyaline Casts (None-Few) per lpf Ur Culture Indicated? (NO) 01/02/18 Range/Units 06:05 WBC (4.3-11.1) K/mcL RBC (3.82-4.97) M/mcL Hgb (11.5-15.4) g/dL Hct (35.3-44.9) % MCV (83.0-100.0) fL MCH (28.0-33.3) pg MCHC (31.6-35.5) g/dL RDW (11.5-14.5) % Plt Count (140-400) K/mcL MPV (9.4-12.4) fL Immature Gran % (0-4) % Seg Neutrophils % % Lymphocytes % % Monocytes % % Eosinophils % % Basophils % % Neutrophils # (1.6-8.9) K/mcL Lymphocytes # (0.6-4.6) K/mcL Monocytes # (0.0-1.3) K/mcL Eosinophils # (0.0-0.6) K/mcL Basophils # (0.0-0.2) K/mcL PT (9.4-12.1) Seconds INR APTT (26.0-36.0) Seconds Sodium (136-145) mEq/L Potassium (3.5-5.1) mEq/L Chloride (98-107) mEq/L Carbon Dioxide (23-29) mEq/L BUN (8-23) mg/dL Creatinine (0.60-1.20) mg/dL Est GFR ( Amer) (> 60) Est GFR (Non-Af Amer) (> 60) BUN/Creatinine Ratio (6-26) Glucose (70-105) mg/dL Calculated Osmolality (280-300) Calcium (8.6-10.3) mg/dL Troponin I (< 0.04) ng/mL Urine Color Yellow (Yellow) Urine Clarity Clear (Clear) Urine pH 7.5 (5.0-8.0) pH Units Ur Specific [place] 1.020 (1.010-1.025) Urine Protein Negative (Neg-Trace) mg/dL Urine Glucose (UA) Normal (Normal) mg/dL Urine Ketones Negative (Negative) mg/dL Urine Blood Negative (Negative) Urine Nitrite Negative (Negative) Urine Bilirubin Negative (Negative) Urine Urobilinogen 4.0 H (Normal) mg/dL Ur Leukocyte Esterase Moderate H (Negative) Urine Microscopic RBC 5-15 H (0-3) per hpf Urine Microscopic WBC 15-30 H (0-3) per hpf Ur Squamous Epith Cells Many H (None-Few) per lpf Urine Bacteria None Seen (None-Few) per hpf Hyaline Casts None Seen (None-Few) per lpf Ur Culture Indicated? NO. A (NO) Attestation Statement - Attestation Attestation: Care assumed from Dr. Montgomery at 7 AM pending planned admission to the hospitalist group for CVA workup. The patient presented with altered mentation , confusion, perseveration. She appears in no acute distress at the time of my exam. I did review the results of her labs, EKG, CT head, chest x-ray. The patient is accepted for admission to internal medicine. He requested a consultation with neurology. I did discuss this case by telephone with the on- call neurologist Dr. Lakhani
[2018-01-02] MEDS ORDERED: Naloxone 0.4 MG/ML INJ IVP PRN (08:53)
--- NOTE | 2018-01-02 15:30 | Neurology - Consult Note ---
Date of Encounter: 01/02/18 Time of Encounter: 08:25 Assessment and Plan (1) Altered level of consciousness Current Visit: Yes Status: Acute This patient was been admitted with some altered consciousness though it lasts for short period of time along with the headaches without any focal lateralizing sign on her current neurological examination. She is been complaining of some increasing headaches recently she did have an history of migraine perhaps it could be related to the migrainous phenomenon. Though certainly stroke or TIA is a possibility but the description does not sound like a typical TIA or stroke. I really doubt that it was a stroke especially no focal findings on her current neurological examination. Less likely it was a seizure as well though complex partial seizures remains in the differential. At the moment she is back to her baseline I would not recommend any EEG at this time. I suggest that we should check for any underlying metabolic or infectious etiology she will be getting an MRI and other workup. Suggest to continue on antiplatelet therapy on a regular basis. Other treatment is as per primary care physician (2) Chronic headache disorder Current Visit: Yes Status: Acute Qualifiers: Headache type: unspecified Intractability: not intractable Qualified Code (s): R51 - Headache History of Present Illness HPI: Ms. Grissom is a 67 year old female with past medical history of hypertension, hyperlipidemia, COPD. She presents today with disoriention . Patient states that she went to bed around 8 PM last night. Around 3:30 AM, she woke up and felt disoriented, felt like she was slurring her speech. She says that she felt confused, was having some mild chest discomfort, mild shortness of breath above her baseline with COPD. She also admitted to nausea, mild generalized abdominal discomfort, diarrhea. She also has a generalized headache that she states has been present for the past 2 days, was gradual in onset. Denies any neck stiffness or neck pain, any numbness, tingling, weakness. Denies any fevers. She denies any falls. Denies any history of stroke or seizures Past Med Surg Social Fam HX - Past Medical History Medical history: COPD, GERD, hyperlipidemia, hypertension, other Psychiatric history: depression - Past Surgical History Surgical History: knee replacement - Social History Smoking Status: Former smoker Smokeless Tobacco Status: No Alcohol use: rarely Drug use: none - Family History Mother Family Member Ethnicity: Non- Living Status: Age at : 75 Cause of : CVA, [place] Hx Family Cardiac Disorders: Yes Hx Family Respiratory Disorders: No Hx Family Cancer: Yes Medications and Allergies Aspirin 81 mg PO DAILY 12/22/15 [History] Atenolol [Tenormin] 25 mg PO DAILY 12/22/15 [History] Cyanocobalamin (Vitamin B-12) [Vitamin B-12] 1,000 mcg SL DAILY 12/22/15 [ History] FLUoxetine HCl [Prozac] 40 mg PO DAILY 12/22/15 [History] Furosemide [Lasix] 20 mg PO DAILY 12/22/15 [History] Gabapentin [Neurontin] 300 mg PO HS 12/22/15 [History] Simvastatin [Zocor] 40 mg PO HS 12/22/15 [History] Omeprazole [PriLOSEC] 20 mg PO DAILY #21 cap 09/11/16 [Rx] Ergocalciferol (VITAMIN D2) [Vitamin D2] 2,000 units PO DAILY 03/04/17 [History] Loratadine [Claritin] 10 mg PO DAILY 03/04/17 [History] Albuterol Sulfate [Albuterol Inhaler] 2 puff IH QID PRN #1 inhaler 03/07/17 [Rx] Tiotropium [Spiriva] 18 mcg IH DAILYR #1 inh 03/07/17 [Rx] 3 Allergy/AdvReac Type Severity Reaction Status Date / Time Amoxicillin Allergy Rash Verified 01/02/18 05:02 codeine Allergy Rash Verified 01/02/18 05:02 diphenhydramine Allergy Difficulty Verified 01/02/18 05:02 [From Benadryl] Breathing All Systems: The remainder of the systems were reviewed and are negative Physical Examination - Vital Signs Vital Signs: Initial Vital Signs Temp Pulse Resp BP Pulse Ox 99.1 F 69 17 126/87 96 01/02/18 05:02 01/02/18 05:02 01/02/18 05:02 01/02/18 05:02 01/02/18 05:02 - Exam Exam: GENERAL: Comfortable in no acute distress HEENT: Normal LUNGS: CTA HEART: RRR, S1 S2 Audible, no murmur EXTREMITIES: No Pedal edema. DETAILED NEUROLOGICAL EXAMINATION: MENTAL STATUS: Oriented to person, place, date and situation. Memory: knows the President, Aware of recent events Recent Memory Intact Cranial Nerve Examination: CN - II: Visual Acuity, Field of Vision Normal, Fundus examination: No disk edema, Pupils- size shape reaction to light and accommodation: All normal. CN III, IV, : External ocular movements were intact, Pupils were reactive, Nodrooping of the eyelids CN V: Sensation over the face to light touch and pinprick all normal. Corneal reflexes not tested, jaw jerk normal. CN VII: No facial asymmetry, no flattening of nasolabial folds, no difficulty in closing the eyes, no loss of forehead wrinkles, no difficulty in eye-closure, frowning raising eyebrows. CNVIII: No significant hearing loss CN IX, X: Uvula centralized not deviated, Gag reflex: Not tested CN X1: Sternocleidomastoid, trapezius, normal or evidence of any weakness. CN X11: No Dysarthria, no wasting or fibrilation f tongue muscles, no deviation, tongue muscle strength normal. Motor examination: No hypertrophy, tone was normal, power grade 0-5 Upper limbs Proximal- No difficulty in lifting the arms above the head. Distal- Noweakness in distal muscles On formal testing 5/5 all over Lower limbs Proximal- No difficulty in getting up from the sitting position Distal- No difficulty in walking On formal testing 5/5 all over Coordination: [id number] normal. Target pursuit normal finger tapping normal, Rapid alternating moment of wrist normal Sensory system: Superficial sensations- Touch normal. Pain- Pinprick, Temperature all normal, Deep sensation normal, Joint position sense normal. Cortical sensation, Tactile discrimination, localization and extinction all normal. Deep tendon reflexes. Symmetrical bilateral, No evidence of Babinski. No sign of meningeal irritation Gait Examination: Deferred - Constitutional General appearance: comfortable Results - Laboratory Findings CBC and BMP: 01/02/18 05:07 01/02/18 05:07 Abnormal lab findings: Abnormal lab results Est GFR (Non-Af Amer) 57 (> 60) L 01/02/18 05:07 POC Glucose 105 mg/dL (70-99) H 01/02/18 05:04 Urine Urobilinogen 4.0 mg/dL (Normal) H 01/02/18 06:05 Ur Leukocyte Esterase Moderate (Negative) H 01/02/18 06:05 Urine Microscopic RBC 5-15 per hpf (0-3) H 01/02/18 06:05 Urine Microscopic WBC 15-30 per hpf (0-3) H 01/02/18 06:05 Ur Squamous Epith Cells Many per lpf (None-Few) H 01/02/18 06:05 Ur Culture Indicated? NO. (NO) A 01/02/18 06:05 Consult Discharge Plan - Plan Referrals: NONE,PCP [Primary Care Provider] -
--- NOTE | 2018-01-02 15:55 | Internal Med History&Physical ---
Date of Encounter: 01/02/18 Time of Encounter: 15:53 Internal Medicine - H&P: HPI Chief complaint: I was confused Admitted From: Home History of present illness: Ms. Grissom is a 67 year old female with PMH hypertension, CAD and depression who presented to [facility] on 01/02/2018 with complaints of confusion. She is placed in observation status for CVA rule out. Information obtained from chart review and patient report the patient does not seem to be an accurate historian and does not know details. She tells me that she was confused and that is the reason why she came to the ER. When asked about more details she tells me that she had slurred speech and just felt off this morning when she woke up. She does not elaborate as to how she felt off; says he just did not feel right. Denied paresthesias, no aphasia. No alert or double vision. States she is back to baseline now. No family at bedside for collateral. No chest pain or shortness of breath. Past Med Surg Social Fam HX - Past Medical History Medical history: COPD, GERD, hyperlipidemia, hypertension, other Psychiatric history: depression - Past Surgical History Surgical History: knee replacement - Social History Smoking Status: Former smoker Smokeless Tobacco Status: No Alcohol use: rarely Drug use: none - Family History Mother Family Member Ethnicity: Non- Living Status: Age at : 75 Cause of : CVA, [place] Hx Family Cardiac Disorders: Yes Hx Family Respiratory Disorders: No Hx Family Cancer: Yes Internal Medicine - H&P: Meds Aspirin 81 mg PO DAILY 12/22/15 [History] Atenolol [Tenormin] 25 mg PO DAILY 12/22/15 [History] Cyanocobalamin (Vitamin B-12) [Vitamin B-12] 1,000 mcg SL DAILY 12/22/15 [ History] FLUoxetine HCl [Prozac] 40 mg PO DAILY 12/22/15 [History] Furosemide [Lasix] 20 mg PO DAILY 12/22/15 [History] Gabapentin [Neurontin] 300 mg PO HS 12/22/15 [History] Simvastatin [Zocor] 40 mg PO HS 12/22/15 [History] Omeprazole [PriLOSEC] 20 mg PO DAILY #21 cap 09/11/16 [Rx] Ergocalciferol (VITAMIN D2) [Vitamin D2] 2,000 units PO DAILY 03/04/17 [History] Loratadine [Claritin] 10 mg PO DAILY 03/04/17 [History] Albuterol Sulfate [Albuterol Inhaler] 2 puff IH QID PRN #1 inhaler 03/07/17 [Rx] Tiotropium [Spiriva] 18 mcg IH DAILYR #1 inh 03/07/17 [Rx] 3 Allergy/AdvReac Type Severity Reaction Status Date / Time Amoxicillin Allergy Rash Verified 01/02/18 05:02 codeine Allergy Rash Verified 01/02/18 05:02 diphenhydramine Allergy Difficulty Verified 01/02/18 05:02 [From Benadryl] Breathing All Systems PM: A 10-system review of systems was performed and is negative for pertinent findings except as documented above in the HPI. - Constitutional Constitutional: no chills, no fever(s), no night sweats - EENT Eyes: no change in vision, no discharge, no pain, no photophobia Ears: no ear discharge, no ear pain, no tinnitus Nose, mouth and throat: no dysphagia, no nasal discharge, no neck pain, no sore throat - Cardiovascular Cardiovascular ROS IM: no chest pain, no diaphoresis, no dyspnea, no lightheadedness, no palpitations, no syncope - Respiratory Respiratory: no cough, no dyspnea, no wheezing, no excessive phlegm production - Gastrointestinal Gastrointestinal: no abdominal pain, no diarrhea, no hematemesis, no hematochezia, no melena, no nausea, no vomiting - Genitourinary Genitourinary: no change in urinary stream, no dysuria, no flank pain, no hematuria - Musculoskeletal Musculoskeletal ROS IM: no numbness, no tingling - Integumentary Integumentary IM: no rash, no unusual bruising - Neurological Neurological ROS: no confusion, no convulsions, no focal weakness, no numbness, no tingling, no tremor(s) - Hematologic/Lymphatic Hematologic/Lymphatic: no easy bruising - Constitutional Vitals: Temp Pulse Resp BP Pulse Ox 98.6 F 67 14 106/71 96 01/02/18 13:05 01/02/18 13:05 01/02/18 13:05 01/02/18 13:05 01/02/18 13:05 General appearance: Present: A&O X 3, no acute distress - Head Head exam: Present: atraumatic, normocephalic - Eye Eye exam: Present: PERRL, conjuntiva pink, sclera anicteric Pupils: Present: PERRL - Neck Neck exam general surgery: Present: supple, trachea midline. Absent: lymphadenopathy - Respiratory Respiratory exam: Present: CTAB. Absent: accessory muscle use, rales, rhonchi, wheezes - Cardiovascular Cardiovascular exam: Present: RRR, +S1, +S2. Absent: diastolic murmur, gallop, rubs, systolic murmur - GI/Abdominal GI/Abdominal exam: Present: normal bowel sounds, soft, no peritoneal signs. Absent: distended, tenderness - Extremities Exam Extremities exam: Present: warm, radial pulses palpable and symmetrical. Absent : calf tenderness, cyanotic, pedal edema - Neurological Exam Neurological exam: Present: CN II-XII intact, oriented X3, no focal deficits. Absent: pronater drift, facial droop, speech deficit - Skin Skin exam: Present: dry, intact Internal Med - H&P Results - Labs CBC & Chem 7: 01/02/18 05:07 01/02/18 05:07 - Assessment and plan (1) Confusion Current Visit: Yes Status: Acute Assessment and plan: He tells unclear but patient reported confusion on day of arrival. CVA rule out. Received ASA in ED. Head CT nonacute. Brain MRI negative for acute infarct. 09/2017 echo with EF 60%, mild diastolic dysfunction. Low suspicion for primary neurological etiology. Suspect interim secondary to psychiatric unit. Back to baseline, no neurological deficits apparent. Consult neurology. Bilateral carotids pending. (2) COPD (chronic obstructive pulmonary disease) Current Visit: No Status: Acute Assessment and plan: per hx. evidence of exacerbation. Continue home inhalers. Qualifiers: COPD type: chronic bronchitis Chronic bronchitis type: unspecified Qualified Code(s): J42 - Unspecified chronic bronchitis (3) Hypertension Current Visit: No Status: Acute Assessment and plan: per hx. BP controlled. Cont home BP medication. Monitor BP and titrate PRN Qualifiers: Hypertension type: essential hypertension Qualified Code(s): I10 - Essential (primary) hypertension (4) DVT prophylaxis Current Visit: No Status: Acute Assessment and plan: heparin - Time Spent With Patient Total time spent is greater than 50% in coordination of care (as documented) at patient's floor/unit and/or counseling patient:
[2018-01-02] MEDS ORDERED: Gabapentin 300 MG CAPSULE PO SCH (21:00)
[2018-01-03 05:27] LABS: Hematocrit 39.1 % (35.3-44.9); Hemoglobin 12.3 g/dL (11.5-15.4); Mean Corpuscular HGB Conc 31.5 g/dL (31.6-35.5); Mean Corpuscular Volume 89.1 fL (83.0-100.0); Mean Platelet Volume 9.8 fL (9.4-12.4); Platelet Count 331 K/mcL (140-400); Red Blood Count 4.39 M/mcL (3.82-4.97); Red Cell Distribution Width 13.6 % (11.5-14.5)
[2018-01-03 05:47] LABS: BUN/Creatinine Ratio 19 (6-26); Blood Urea Nitrogen 18 mg/dL (8-23); Calcium 9.1 mg/dL (8.6-10.3); Carbon Dioxide 30 mEq/L (23-29); Chloride 105 mEq/L (98-107); Chol/HDL Ratio 3.8 (0-4.9); Cholesterol 178 mg/dL (< 200); Glucose 102 mg/dL (70-105); HDL Cholesterol 47 mg/dL (40-59); LDL Cholesterol,Calculated 107 mg/dL (0-99); Osmolality,Calculated 290 (280-300); Potassium 4.8 mEq/L (3.5-5.1); Sodium 139 mEq/L (136-145); Triglycerides 119 mg/dL (< 150); eGFR For African Americans > 60 (> 60); eGFR For Non-African Americans 58 (> 60)
[2018-01-03] MEDS ORDERED: Aspirin 81 MG TAB.CHEW PO SCH (09:00)
[2018-01-03] MEDS ORDERED: Furosemide 20 MG TABLET PO SCH (09:00)
[2018-01-03] MEDS ORDERED: FLUoxetine 20 MG CAPSULE PO SCH (09:00)
[2018-01-03] MEDS ORDERED: Loratadine 10 MG TABLET PO SCH (09:00)
[2018-01-03] MEDS ORDERED: Tiotropium 18 MCG inhalation IH SCH (10:00)
--- NOTE | 2018-01-03 11:50 | Neurology Progress Note ---
Date of Encounter: 01/03/18 Time of Encounter: 07:30 Assessment and Plan (1) Altered level of consciousness Current Visit: Yes Status: Acute No evidence of any acute to focal motor weakness no history to be suggestive of seizures. MRI of the brain is negative for any acute intracranial process. Stable from neurology standpoint check for any underlying infectious or metabolic abnormalities other treatment is as per primary team (2) Chronic headache disorder Current Visit: Yes Status: Acute History of chronic Headaches and chronic migraines may benefit from preventative medication perhaps amitriptyline or tizanidine 2 mg at bedtime Qualifiers: Headache type: unspecified Intractability: not intractable Qualified Code (s): R51 - Headache Subjective Interval history: Stable no neurological signs and symptoms exam is normal MRI of the brain is also normal Objective - Constitutional Vitals: Temp Pulse Resp BP Pulse Ox 97.7 F 57 18 91/60 97 01/03/18 11:04 01/03/18 11:04 01/03/18 11:04 01/03/18 11:04 01/03/18 11:04 - Neurological Exam Motor Examination: Present: grossly full strength in all extremities Sensation intact: Present: intact Reflexes: Biceps: 1+, Triceps: 1+, Brachioradialis: 1+, Patella: 1+, Achilles: 1 + Mental Status Examination: Present: awake, alert, oriented to person, oriented to place Cranial nerve examination: Present: PERRL, EOMI, visual sullivan intact, no facial asymmetry is present, no dysarthria Results - Laboratory Findings CBC and BMP: 01/03/18 04:49 01/03/18 04:49 Abnormal lab findings: Abnormal lab results MCHC 31.5 g/dL (31.6-35.5) L 01/03/18 04:49 Carbon Dioxide 30 mEq/L (23-29) H 01/03/18 04:49 Est GFR (Non-Af Amer) 58 (> 60) L 01/03/18 04:49 POC Glucose 105 mg/dL (70-99) H 01/02/18 05:04 LDL Cholesterol, Calc 107 mg/dL (0-99) H 01/03/18 04:49 Urine Urobilinogen 4.0 mg/dL (Normal) H 01/02/18 06:05 Ur Leukocyte Esterase Moderate (Negative) H 01/02/18 06:05 Urine Microscopic RBC 5-15 per hpf (0-3) H 01/02/18 06:05 Urine Microscopic WBC 15-30 per hpf (0-3) H 01/02/18 06:05 Ur Squamous Epith Cells Many per lpf (None-Few) H 01/02/18 06:05 Ur Culture Indicated? NO. (NO) A 01/02/18 06:05 - Diagnostic Findings Additional findings: MRI of the brain is negative Consult Discharge Plan - Plan Referrals: NONE,PCP [Primary Care Provider] -
--- NOTE | 2018-01-03 15:35 | Discharge Summary ---
Date of Encounter: 01/03/18 Time of Encounter: 15:32 - Discharge Diagnosis (1) Confusion Priority: Primary Status: Resolved (2) COPD (chronic obstructive pulmonary disease) Priority: Secondary Status: Chronic Qualifiers: COPD type: chronic bronchitis Chronic bronchitis type: unspecified Qualified Code(s): J42 - Unspecified chronic bronchitis (3) Hypertension Priority: Primary Status: Acute Qualifiers: Hypertension type: essential hypertension Qualified Code(s): I10 - Essential (primary) hypertension Hospital course: Ms. Grissom is a 67 year old female with PMH hypertension, CAD and depression who presented to [facility] on 01/02/2018 with complaints of confusion. She was placed in observation status for CVS rule out. Her workup included a negative head CT and negative brain MRI. Bilateral carotids Dopplers unremarkable. Evaluated by neurology who did not suspect central neurological etiology. Etiology unknown however I suspect symptoms possibly secondary to depression/stress/anxiety as patient did report increased stressors at home. Symptoms resolved spontaneously without intervention. Her BP was soft/borderline therefore home atenolol was decreased. Advised to return to ER if she experienced recurrence of confusion, paresthesia, vision changes. Patient verbalized understanding. - Time Spent with Patient Total time spent providing and/or coordinating discharge services: - Discharge Medications Prescriptions: Atenolol [Tenormin] 12.5 mg PO DAILY #30 tablet Home Medications: Aspirin 81 mg PO DAILY 12/22/15 [History] Cyanocobalamin (Vitamin B-12) [Vitamin B-12] 1,000 mcg SL DAILY 12/22/15 [ History] FLUoxetine HCl [Prozac] 40 mg PO DAILY 12/22/15 [History] Furosemide [Lasix] 20 mg PO DAILY 12/22/15 [History] Gabapentin [Neurontin] 300 mg PO HS 12/22/15 [History] Simvastatin [Zocor] 40 mg PO HS 12/22/15 [History] Omeprazole [PriLOSEC] 20 mg PO DAILY #21 cap 09/11/16 [Rx] Ergocalciferol (VITAMIN D2) [Vitamin D2] 2,000 units PO DAILY 03/04/17 [History] Loratadine [Claritin] 10 mg PO DAILY 03/04/17 [History] Albuterol Sulfate [Albuterol Inhaler] 2 puff IH QID PRN #1 inhaler 03/07/17 [Rx] Tiotropium [Spiriva] 18 mcg IH DAILYR #1 inh 03/07/17 [Rx] Atenolol [Tenormin] 12.5 mg PO DAILY #30 tablet 01/03/18 [Rx] Allergies/Adverse Reactions: 3 Allergy/AdvReac Type Severity Reaction Status Date / Time Amoxicillin Allergy Rash Verified 01/02/18 05:02 codeine Allergy Rash Verified 01/02/18 05:02 diphenhydramine Allergy Difficulty Verified 01/02/18 05:02 [From Benadryl] Breathing Date of admission: 01/02/18 10:31 Primary care physician: PCP NONE Discharging clinician: Lizzie Sanabria Anticipated date of discharge: 01/03/18 - Constitutional Vitals: Temp Pulse Resp BP Pulse Ox 97.7 F 57 18 91/60 97 01/03/18 11:04 01/03/18 11:04 01/03/18 11:04 01/03/18 11:04 01/03/18 11:04 General appearance: Present: A&O X 3, no acute distress - Head Head exam: Present: atraumatic, normocephalic - Eye Eye exam: Present: PERRL, conjuntiva pink, sclera anicteric Pupils: Present: PERRL - Neck Neck exam general surgery: Present: supple, trachea midline. Absent: lymphadenopathy - Respiratory Respiratory exam: Present: CTAB. Absent: accessory muscle use, rales, rhonchi, wheezes - Cardiovascular Cardiovascular exam: Present: RRR, +S1, +S2. Absent: diastolic murmur, gallop, rubs, systolic murmur - GI/Abdominal GI/Abdominal exam: Present: normal bowel sounds, soft, no peritoneal signs. Absent: distended, tenderness - Extremities Exam Extremities exam: Present: warm, radial pulses palpable and symmetrical. Absent : calf tenderness, cyanotic, pedal edema - Neurological Exam Neurological exam: Present: CN II-XII intact, oriented X3, no focal deficits. Absent: pronater drift, facial droop, speech deficit - Skin Skin exam: Present: dry, intact - Patient Status Disposition: Home, Self-Care Condition: Good Functional capacity at discharge: independent ambulation Overall status at discharge: patient is back to baseline - Discharge Instructions Instructions: Acute Delirium (DC) Follow Up With: NONE,PCP [Primary Care Provider] - (Please call [phone] to find a physician that is accepting new patients) - Diet and Activity Activity: increase activity as tolerated Diet: advance to your usual diet
[2018-01-03 15:49] VITALS: BP 123/84
--- NOTE | 2018-01-04 15:39 | Electrocardiograph Report ---
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
== END 2018-01-03 16:55 | disposition home or self-care (01) ==
LOC: SUATTDRO → 3BNU 04:57 → EMEROO 04:57 → 3BNU 12:43
PROVIDERS: ADMIT Internal Medicine; ATTEND Registered Nurse

== ENCOUNTER 2018-02-28 13:51 | Observation (INO) ==
[2018-02-28 14:30] LABS: Basophils % 0.6 %; Eosinophils # 0.2 K/mcL (0.0-0.6); Eosinophils % 2.3 %; Hematocrit 40.7 % (35.3-44.9); Hemoglobin 13.6 g/dL (11.5-15.4); Immature Granulocytes % 0.3 % (0-4); Lymphocytes # 1.9 K/mcL (0.6-4.6); Lymphocytes % 27.4 %; Mean Corpuscular HGB Conc 33.4 g/dL (31.6-35.5); Mean Corpuscular Hemoglobin 29.6 pg (28.0-33.3); Mean Corpuscular Volume 88.5 fL (83.0-100.0); Mean Platelet Volume 9.5 fL (9.4-12.4); Monocytes # 0.8 K/mcL (0.0-1.3); Monocytes % 11.1 %; Platelet Count 354 K/mcL (140-400); Red Cell Distribution Width 13.4 % (11.5-14.5); Segmented Neutrophils % 58.3 %
[2018-02-28] MEDS: 0.9 % Sodium Chloride 1,000 ML IVC SCH (14:32)
--- NOTE | 2018-02-28 14:37 | Emergency Department Note ---
Disposition Clinical Impression: Dizziness, Ataxia Disposition: Admitted As Inpatient Condition: Fair Referrals: NONE,PCP [Primary Care Provider] - Time of Disposition: 16:57 General Adult HPI - General Chief complaint: ED Dizziness Stated complaint: HTN / Dizziness Time Seen by Provider: 02/28/18 13:59 Source: patient Mode of arrival: ambulatory Limitations: no limitations Nursing Notes Reviewed: Yes Vital Signs Reviewed: Yes - History of Present Illness HPI Narrative: Patient presents emergency room with complaint of dizziness and high blood pressure. Patient is checking her blood pressure this morning and felt that the blood pressure was too high. She said several days worth of dizziness and feeling like every time she goes to walk she drifts to the left. She has a history of stroke or other medical issues at this point. Patient denies any trauma injury fevers or chills. Denies chest pain shortness of breath headache vision changes nausea vomiting or diarrhea. She is mainly concerned about the dizziness and the high blood pressure. Onset (ago): day(s) Location: head, eyes Radiation: non-radiation Pain Severity: moderate Pain Scale: 8 Quality: other Consistency: constant Improves with: nothing Worsens with: other Associated symptoms: Reports: denies other symptoms Treatments Prior to Arrival: none - Related Data Home Medications Medication Instructions Recorded Confirmed Aspirin 81 mg PO DAILY 12/22/15 01/02/18 Cyanocobalamin (Vitamin B-12) 1,000 mcg SL DAILY 12/22/15 01/02/18 [Vitamin B-12] FLUoxetine HCl [Prozac] 40 mg PO DAILY 12/22/15 01/02/18 Furosemide [Lasix] 20 mg PO DAILY 12/22/15 01/02/18 Gabapentin [Neurontin] 300 mg PO HS 12/22/15 01/02/18 Simvastatin [Zocor] 40 mg PO HS 12/22/15 01/02/18 Ergocalciferol (VITAMIN D2) 2,000 units PO DAILY 03/04/17 01/02/18 [Vitamin D2] Loratadine [Claritin] 10 mg PO DAILY 03/04/17 01/02/18 Atenolol [Tenormin] 25 mg PO DAILY 02/28/18 02/28/18 Pramipexole Di-HCl [Pramipexole 0.5 mg PO DAILY 02/28/18 02/28/18 Dihydrochloride] SUMAtriptan Succinate [Imitrex] 100 mg PO DAILY PRN 02/28/18 02/28/18 Trazodone HCl 100 mg PO HS 02/28/18 02/28/18 Previous Rx's Medication Instructions Recorded Omeprazole [PriLOSEC] 20 mg PO DAILY #21 cap 09/11/16 Albuterol Sulfate [Albuterol 2 puff IH QID PRN #1 inhaler 03/07/17 Inhaler] Allergies Allergy/AdvReac Type Severity Reaction Status Date / Time Amoxicillin Allergy Rash Verified 02/28/18 16:01 codeine Allergy Rash Verified 02/28/18 16:01 diphenhydramine Allergy Difficulty Verified 02/28/18 16:01 [From Benadryl] Breathing All systems ED: reviewed and negative except as stated. Review of Systems: As Per HPI Constitutional: Denies: fever, chills, weakness ENT ED: Denies: throat pain Cardiovascular: Denies: chest pain, palpitations, dyspnea on exertion, orthopnea Respiratory: Denies: cough, dyspnea, wheezes, hemoptysis, stridor Gastrointestinal: Denies: abdominal pain, nausea, vomiting, diarrhea Genitourinary: Denies: urgency, dysuria, frequency Musculoskeletal: Denies: back pain, neck pain ( ) Integumentary: Denies: rash Neurological: Denies: headache Psychiatric: Denies: anxiety, depression Past Medical History - Past Medical History Attestation: Yes The following information was validated with the patient. Source: patient Medical history: Reports: asthma, COPD, GERD, hyperlipidemia, hypertension, other Surgical history: Reports: knee replacement Psychiatric history: Reports: anxiety, depression - Social History Smoking Status: Former smoker Smokeless Tobacco Status: No Alcohol use: Reports: none Drug use: Reports: none Physical Exam - General Limitations: no limitations General appearance: alert, in no apparent distress - Eye Eye exam: Present: normal appearance, PERRL, EOMI. Absent: miosis, mydriasis - ENT ENT exam: normal exam, normal oropharynx, mucous membranes moist - Neck Neck exam: Present: normal inspection, full ROM, trachea midline. Absent: tenderness, meningismus, lymphadenopathy - Chest Chest inspection: Present: normal inspection, symmetric chest wall rise. Absent : tenderness - Respiratory Respiratory exam: Present: normal lung sounds bilaterally. Absent: respiratory distress, wheezes, accessory muscle use - Cardiovascular Cardiovascular exam: Present: regular rate, normal rhythm, normal heart sounds - Abdominal Exam Abdominal exam: Present: soft, Non-Tender, normal bowel sounds. Absent: tenderness, distention, guarding, rebound, rigidity, Nunez's sign, Rovsing's sign, tenderness at McBurney's Point - Extremities Exam Extremities exam: Present: normal inspection, full ROM, normal capillary refill. Absent: tenderness, pedal edema - Back Exam Back exam: Present: normal inspection, full ROM. Absent: tenderness - Neurological Exam Neurological exam: Present: alert, oriented X3, CN II-XII intact - Skin Skin exam: Present: warm, dry, intact, normal color Course Course Narrative: Patient seen and examined the time of arrival. See history of present illness. 67-year-old female presents emergency room today with dizziness and hypertension. Patient is noticed the dizziness over the last 3 days. She describes it as this is being present when she moves her eyes or turns her head. She also notices it worse when she stands up and goes to walk. The main concern was that every time she starts to ambulate she feels like she is drifting hard to the left. She denies any chest pain shortness of breath headache nausea vomiting or diarrhea. Denies any fevers or chills. Denies any new medications or medication changes. She does describe some intermittent blurry vision is worse over the last several days as well. Patient has no history of stroke but she does have hypertension hyperlipidemia diabetes and COPD. Patient has not fallen or injured herself she has not had her head. Vital signs on presentation are stable. Physical exam shows a well-appearing female head is atraumatic pupils are equal round reactive oropharynx is patent trachea is midline. Full range of motion of the neck is noted no stridor no trismus. Heart is regular lungs are clear. Abdomen is soft nontender nondistended. Patient moves her upper and lower extremities without any difficulty. She has no dysmetria or difficulty with finger to nose or heel to don. Patient will have detailed evaluation completed on a cardiac evaluation here today looking for signs of end organ dysfunction. CT the head along with EKG labs including CBC chemistry troponin and urinalysis will be resulted here. Disposition pending the full workup treatment course and evaluation. Is not a candidate for stroke evaluation and does not require an emergent stroke treatment course being established at this time. - Reevaluation(s) Reevaluation #1: Neurology consult that after the CT scan did not show any acute pathology with the patient does have what appears to be microvascular disease concerning for probable or previous stroke. Lengthy discussion about the presentation the symptoms it was determined that because of the drift while walking there is concern for possible posterior stroke. They recommended admission at this point. Patient otherwise is asymptomatic with sitting still. He does appear to have some aspect of benign positional vertigo at this point but because of the drifting gait the neurologist did recommend admission. Aspirin will be given and admission process to be established for evaluation of strokelike symptoms. The hospitalist Dr. Lunsford and I reviewed the presentation symptoms. We discussed the evaluation with the majority of the presentation be concerning for positional-like presentation with no specific neurologic issues including nystagmus. Patient does not have any acute signs of labyrinthitis or Meniere's disease. She denies any tinnitus or other etiology this point. She has no pain in the ears bilaterally. Evaluation will be completed in the outpatient setting for possible posterior related vascular insufficiency. Patient is otherwise clinically stable at the time of admission aspirin was given. Consult neurology was placed in the emergency room. Time: 16:54 Vital Signs Temperature 98.8 F 02/28/18 13:52 Pulse Rate 62 02/28/18 13:52 Respiratory Rate 14 02/28/18 13:52 Blood Pressure 142/89 02/28/18 13:52 O2 Sat by Pulse Oximetry 97 02/28/18 13:52 Temperature 98.8 F 02/28/18 14:00 Pulse Rate 62 02/28/18 14:00 Respiratory Rate 14 02/28/18 14:00 Blood Pressure 142/89 02/28/18 14:00 O2 Sat by Pulse Oximetry 97 02/28/18 14:00 Oxygen Delivery Oxygen Delivery Room Air Medical Decision Making - MDM Narrative Medical decision making narrative: Dizziness, drift while walking, stroke evaluation - Medical Records Medical records reviewed: Yes I reviewed the patient's medical records. - Lab Data Lab results reviewed: Yes I reviewed the patient's lab results. - Radiology Data Radiology results reviewed: Yes I reviewed the patient's radiology results. CT scan of the head is unremarkable. Chest x-ray is unremarkable. Chronic microvascular disease - EKG Data EKG #1 EKG attestation: Yes I reviewed and interpreted this EKG. EKG results narrative: EKG shows sinus bradycardia. Ventricular rate of 59. [place] interval 136. QRS duration of 100. QTC of 409. [place] appears to be normal. No acute signs of ST segment elevation or abnormality. No acute signs of WPW or Brugada syndrome. Compared to EKG on 01/02/18 no acute pathology or changes at this time. Morphology all appears to be similar
[2018-02-28 14:47] LABS: Bilirubin,Urine Negative (Negative); Blood,Urine Negative (Negative); Clarity,Urine Clear (Clear); Color,Urine Yellow (Yellow); Glucose,Urine (UA) Normal (Normal); Ketones,Urine Negative (Negative); Leukocyte Esterase,Urine Negative (Negative); Nitrite,Urine Negative (Negative); Protein,Urine Negative (Neg-Trace); Specific Gravity,Urine 1.008 (1.010-1.025); Urobilinogen,Urine Normal (Normal)
[2018-02-28 14:51] LABS: Troponin I < 0.03 ng/mL (< 0.04)
[2018-02-28 14:52] LABS: BUN/Creatinine Ratio 16 (6-26); Blood Urea Nitrogen 16 mg/dL (8-23); Calcium 9.6 mg/dL (8.6-10.3); Carbon Dioxide 25 mEq/L (23-29); Chloride 104 mEq/L (98-107); Glucose 100 mg/dL (70-105); Osmolality,Calculated 289 (280-300); Potassium 3.8 mEq/L (3.5-5.1); Sodium 139 mEq/L (136-145); eGFR For African Americans > 60 (> 60); eGFR For Non-African Americans 54 (> 60)
[2018-02-28] MEDS ORDERED: Aspirin 81 MG TAB.CHEW PO STA (15:33)
[2018-02-28] MEDS ORDERED: Acetaminophen 325 MG TABLET PO PRN (16:15)
--- NOTE | 2018-02-28 16:29 | Internal Med History&Physical ---
<Kaylin Can - Last Filed: 02/28/18 17:29> Date of Encounter: 02/28/18 Time of Encounter: 16:26 Internal Medicine - H&P: HPI Chief complaint: Left sided drift and dizziness Admitted From: Home Plans for Post Hospital Care: Home (May need PT/OT outpatient) History of present illness: Ms. Grissom is a 67 year old female with history of COPD, hypertension, and headache. Med list included Pramipexole. She indicate dthat she had a recent visit to PCP for continued GUPTA's on 02/14/2018, and she was started on imitrex which she has not started yet. She indicated that her pcp was concerned because she was also hypotensive in the office that day.Today she presents with dizziness that has presented for at least 3 days and a sudden left-sided drift. The patient neuro check is wnl and she had no focal deficits noted. Strength is equal and strong in bilat upper and lower extremities. Ekg showed SB rate 58. Echo cardiogram completed in 09/2017, during an admission related to chest pain. It showed trace trifle tricuspid valve regurgitation, moderate dilated left atrium, mild mitral valve regurg and mild left ventricular dysfunction. The patient's ejection fraction was 60%. Patient was also admitted in December 2017 with confusion. MRI was completed at that time that showed no acute intracranial abnormalities and minimal micro-vascular changes. Carotid duplex completed 12/2017 showed normal findings bilat. Patient denies chest pain, troponin is 0.03. UA negative for infection, white blood cell count of 6.9. We will continue neuro checks every shift, we will get orthostatic daily. Questionable BPPV, PT/OT consults ordered for evaluation and treatment. Past Med Surg Social Fam HX - Past Medical History Medical history: asthma, COPD, GERD, hyperlipidemia, hypertension, other Psychiatric history: anxiety, depression - Past Surgical History Surgical History: knee replacement Additional surgical history: left knee replacement - Social History Smoking Status: Former smoker Smokeless Tobacco Status: No Alcohol use: none Drug use: none - Family History Mother Family Member Ethnicity: Non- Living Status: Hx Family Cardiac Disorders: Yes Hx Family Respiratory Disorders: No Hx Family Cancer: Yes Internal Medicine - H&P: Meds Aspirin 81 mg PO DAILY 12/22/15 [History] Cyanocobalamin (Vitamin B-12) [Vitamin B-12] 1,000 mcg SL DAILY 12/22/15 [ History] FLUoxetine HCl [Prozac] 40 mg PO DAILY 12/22/15 [History] Furosemide [Lasix] 20 mg PO DAILY 12/22/15 [History] Gabapentin [Neurontin] 300 mg PO HS 12/22/15 [History] Simvastatin [Zocor] 40 mg PO HS 12/22/15 [History] Omeprazole [PriLOSEC] 20 mg PO DAILY #21 cap 09/11/16 [Rx] Ergocalciferol (VITAMIN D2) [Vitamin D2] 2,000 units PO DAILY 03/04/17 [History] Loratadine [Claritin] 10 mg PO DAILY 03/04/17 [History] Albuterol Sulfate [Albuterol Inhaler] 2 puff IH QID PRN #1 inhaler 03/07/17 [Rx] Atenolol [Tenormin] 25 mg PO DAILY 02/28/18 [History] Pramipexole Di-HCl [Pramipexole Dihydrochloride] 0.5 mg PO DAILY 02/28/18 [ History] SUMAtriptan Succinate [Imitrex] 100 mg PO DAILY PRN 02/28/18 [History] Trazodone HCl 100 mg PO HS 02/28/18 [History] 3 Allergy/AdvReac Type Severity Reaction Status Date / Time Amoxicillin Allergy Rash Verified 02/28/18 16:01 codeine Allergy Rash Verified 02/28/18 16:01 diphenhydramine Allergy Difficulty Verified 02/28/18 16:01 [From Benadryl] Breathing All Systems PM: A 10-system review of systems was performed and is negative for pertinent findings except as documented above in the HPI. - Constitutional Constitutional: no chills, no fever(s), no night sweats - EENT Eyes: no change in vision, no discharge, no pain, no photophobia Ears: no ear discharge, no ear pain, no tinnitus Nose, mouth and throat: no dysphagia, no nasal discharge, no neck pain, no sore throat - Cardiovascular Cardiovascular ROS IM: lightheadedness, no chest pain, no diaphoresis, no dyspnea, no palpitations, no syncope - Respiratory Respiratory: no cough, no dyspnea, no wheezing, no excessive phlegm production - Gastrointestinal Gastrointestinal: no abdominal pain, no diarrhea, no hematemesis, no hematochezia, no melena, no nausea, no vomiting - Genitourinary Genitourinary: no change in urinary stream, no dysuria, no flank pain, no hematuria - Musculoskeletal Musculoskeletal ROS IM: muscle weakness (left extremities), no numbness, no tingling - Integumentary Integumentary IM: no rash, no unusual bruising - Neurological Neurological ROS: headache(s), weakness (left side), no confusion, no convulsions, no focal weakness, no numbness, no tingling, no tremor(s) - Psychiatric Psychiatric: other (Patient indicated gabapentin stopped d/t vivd dreams, still has them at times) - Hematologic/Lymphatic Hematologic/Lymphatic: no easy bruising - Constitutional Vitals: Temp Pulse Resp BP Pulse Ox 98.8 F 62 14 142/89 97 02/28/18 14:00 02/28/18 14:00 02/28/18 14:00 02/28/18 14:00 02/28/18 14:00 General appearance: Present: cooperative, A&O X 3, answers questions appropriately - Head Head exam: Present: atraumatic, normocephalic - Eye Eye exam: Present: PERRL, conjuntiva pink, sclera anicteric Pupils: Present: PERRL - Neck Neck exam general surgery: Present: supple, trachea midline. Absent: lymphadenopathy - Respiratory Respiratory exam: Present: CTAB. Absent: accessory muscle use, rales, rhonchi, wheezes - Cardiovascular Cardiovascular exam: Present: RRR, +S1, +S2. Absent: diastolic murmur, gallop, rubs, systolic murmur - GI/Abdominal GI/Abdominal exam: Present: normal bowel sounds, soft, no peritoneal signs. Absent: distended, tenderness - Extremities Exam Extremities exam: Present: warm, radial pulses palpable and symmetrical. Absent : calf tenderness, cyanotic, pedal edema - Neurological Exam Neurological exam: Present: alert, CN II-XII intact, oriented X3, no focal deficits, strengths equal and symetr throughout. Absent: facial droop, speech deficit - Skin Skin exam: Present: dry, intact Internal Med - H&P Results - Labs CBC & Chem 7: 02/28/18 14:05 02/28/18 14:05 - Assessment and plan (1) Left-sided weakness Current Visit: Yes Status: Acute Assessment and plan: Weakness could be caused from stroke Neurochecks every shift Neurology consulted MRI of brain in a.m., last MRI of brain December 2017 Up with assist only PT/OT consult (2) Dizziness Current Visit: Yes Status: Acute Assessment and plan: Cardiac monitoring Orthostatics daily Neurology consulted Daily labs-cbc and bmp (3) Hypertension Current Visit: No Status: Acute Assessment and plan: BP is controlled, the patient reports periods of hypotension. Currently 142/89 Hold home BP meds: Atenolol Qualifiers: Hypertension type: essential hypertension Qualified Code(s): I10 - Essential (primary) hypertension (4) Diabetes Current Visit: No Status: Acute Assessment and plan: Inpatient glucose goal is under 200 Patient glucose will be monitored BID and with daily labs Qualifiers: Diabetes mellitus type: type 2 Diabetes mellitus longterm insulin use: without termite exterminator use Diabetes mellitus complication status: without complication Qualified Code(s): E11.9 - Type 2 diabetes mellitus without complications (5) COPD (chronic obstructive pulmonary disease) Current Visit: No Status: Chronic Assessment and plan: COPD controlled at this time. Continue home bronchodilators Oxygen for saturation less than 92% Qualifiers: COPD type: chronic bronchitis Chronic bronchitis type: unspecified Qualified Code(s): J42 - Unspecified chronic bronchitis - Time Spent With Patient Total time spent is greater than 50% in coordination of care (as documented) at patient's floor/unit and/or counseling patient: <Zak Lunsford P - Last Filed: 02/28/18 18:47> Date of Encounter: 02/28/18 Internal Medicine - H&P: HPI History of present illness: Ms. Grissom is a 67 year old female All Systems PM: A 10-system review of systems was performed and is negative for pertinent findings except as documented above in the HPI. - Constitutional Vitals: Temp Pulse Resp BP Pulse Ox 98.0 F 59 18 135/81 97 02/28/18 16:31 02/28/18 16:31 02/28/18 16:31 02/28/18 16:31 02/28/18 16:31 Internal Med - H&P Results - Labs CBC & Chem 7: 02/28/18 14:05 02/28/18 14:05 - Attending Attestation I have seen and evaluated patient. I have performed my own physical examination. 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 I agree with her assessment and plan as documented in her note. Briefly, patient admitted for dizziness and ataxic gate. CT head in ED was unremarkable. Neurology was consulted by ED, and recommended to admit patient for CVA workup. We will admit for observation. Obtain MRI, ECHO, and U/S carotids in AM. PT/OT/ST evaluations. NPO until evaluate by ST. Serial neurochecks. Will await neurology recommendations in AM. - Time Spent With Patient Total time spent is greater than 50% in coordination of care (as documented) at patient's floor/unit and/or counseling patient:
[2018-02-28] MEDS: traZODone 50 MG TABLET PO SCH (21:09)
[2018-03-01] MEDS: 0.9 % Sodium Chloride 1,000 ML IVC SCH (04:50)
[2018-03-01 06:09] LABS: Basophils # 0.1 K/mcL (0.0-0.2); Basophils % 0.8 %; Eosinophils # 0.2 K/mcL (0.0-0.6); Eosinophils % 2.8 %; Hematocrit 33.8 % (35.3-44.9); Immature Granulocytes % 0.3 % (0-4); Lymphocytes # 2.3 K/mcL (0.6-4.6); Lymphocytes % 36.6 %; Mean Corpuscular HGB Conc 32.8 g/dL (31.6-35.5); Mean Corpuscular Hemoglobin 28.7 pg (28.0-33.3); Mean Corpuscular Volume 87.3 fL (83.0-100.0); Mean Platelet Volume 9.8 fL (9.4-12.4); Monocytes # 0.7 K/mcL (0.0-1.3); Monocytes % 10.6 %; Neutrophils # 3.1 K/mcL (1.6-8.9); Platelet Count 291 K/mcL (140-400); Red Blood Count 3.87 M/mcL (3.82-4.97); Red Cell Distribution Width 13.6 % (11.5-14.5); Segmented Neutrophils % 48.9 %
[2018-03-01 06:12] LABS: Hemoglobin 11.1 g/dL (11.5-15.4)
[2018-03-01 06:14] LABS: INR 1.1; Prothrombin Time 12.2 Seconds (9.4-12.1)
[2018-03-01 06:26] LABS: Troponin I < 0.03 ng/mL (< 0.04)
[2018-03-01 06:27] LABS: Alanine Aminotransferase 13 Units/L (7-52); Albumin 3.5 g/dL (3.5-5.7); Albumin/Globulin Ratio 1.4 (1.1-2.2); Alkaline Phosphatase 71 Units/L (34-104); Aspartate Amino Transferase 17 Units/L (13-39); BUN/Creatinine Ratio 13 (6-26); Bilirubin,Total 0.5 mg/dL (0.3-1.0); Blood Urea Nitrogen 12 mg/dL (8-23); Calcium 8.5 mg/dL (8.6-10.3); Carbon Dioxide 24 mEq/L (23-29); Chloride 111 mEq/L (98-107); Chol/HDL Ratio 4.1 (0-4.9); Cholesterol 175 mg/dL (< 200); Globulin 2.5 g/dL (2.4-3.5); Glucose 94 mg/dL (70-105); HDL Cholesterol 43 mg/dL (40-59); LDL Cholesterol,Calculated 113 mg/dL (0-99); Osmolality,Calculated 294 (280-300); Potassium 3.5 mEq/L (3.5-5.1); Sodium 142 mEq/L (136-145); Triglycerides 97 mg/dL (< 150); eGFR For African Americans > 60 (> 60); eGFR For Non-African Americans > 60 (> 60)
--- NOTE | 2018-03-01 08:11 | Neurology - Consult Note ---
Date of Encounter: 03/01/18 Time of Encounter: 08:45 Assessment and Plan (1) Dizziness Current Visit: Yes Status: Acute Patient reports intermittent dizziness upon standing chronically. She has also been having intermittent headaches for he last 2-3 months. These are described as generalized dull ache acommpanied by Nausea. She reports she gets dizzy upon standing but after she gathers herself she is fine. She denies other provoking factors for dizziness. She reports yesterday she was dizzy upon standing but also was ataxic for several minutes drifiting to the left while walking. She reports feeling week on the left side. She had some blurry vision at this time. She says she was also having difficulty getting her words out at that time. She was having a headache at this time and her blood pressure was also elevated. She reports this all resolved after about 20 minutes. She reports she sat down and rested and the symptoms resolved. CT scan at ED showed: "No acute intracranial abnormality. Patchy hypodensities in the periventricular and subcortical white matter, which are nonspecific, but may represent chronic small vessel ischemic change." MRI Brain showed: "1. No acute infarct, intracranial hemorrhage, or significant mass effect. 2. Chronic lacunar infarcts within bilateral basal ganglia. Chronic small vessel ischemic white matter disease. 3. Mild nonspecific right mastoid opacification." Prelim read of Carotid U/S shows: " 60-79% stenosis in the left distal internal carotid artery" Full read pending. ECHO performed result pending Differential included TIA, Migraine GUPTA, Hypertensive urgency, Orthostatic hypotension. Recommendations: Complete stroke work up Check CTA maximize medical management of risk factors. out patient follow up for management of her headaches History of Present Illness HPI: Ms. Grissom is a 67 year old female c PMHx of asthma, COPD, GERD, hyperlipidemia, hypertension, anxiety, and depression who reports to the [facility] c/o Dizziness and high blood pressure. Patient reports She chronically gets dizzy when standing up. This last for a few seconds and then resolves. She denies any other actions causing dizziness. She has also had headaches for the last 2-3 months. She describes the headaches as a generalized ache all over her head, accompanied but Nausea and photophobia. She was prescribed topamax but has not started taking it. Yesterday she was having a headache and had another episode of dizziness. She also noted she was drifting to the Left while ambulating, felt weak on her L side, her vision was blurry, and had difficulty getting her words out. She checked her Blood pressure and reports it was elevated at that time. She reports these symptoms lasted about 20 minutes. She was worked up in the ED with a CT head which showed "No acute intracranial abnormality. Patchy hypodensities in the periventricular and subcortical white matter, which are nonspecific, but may represent chronic small vessel ischemic change." She was admitted to the Hospitalist service for work up of possible stroke vs TIA. MRI Brain showed: "No acute infarct, intracranial hemorrhage, or significant mass effect. Chronic lacunar infarcts within bilateral basal ganglia. Chronic small vessel ischemic white matter disease. Mild nonspecific right mastoid opacification." Patient denies tinnitus, hearing loss, ear pain, vertigo, chest pain, loc, SOB, fever, abd pain, numbness or tingling, current GUPTA, current nausea, current blurry vision, current weakness. Past Med Surg Social Fam HX - Past Medical History Medical history: asthma, COPD, GERD, hyperlipidemia, hypertension, other Psychiatric history: anxiety, depression - Past Surgical History Surgical History: knee replacement Additional surgical history: left knee replacement - Social History Smoking Status: Former smoker Smokeless Tobacco Status: No Alcohol use: none Drug use: none - Family History Mother Family Member Ethnicity: Non- Living Status: Age at : 70 Cause of : CVA DE Hx Family Cardiac Disorders: Yes Hx Family Respiratory Disorders: No Hx Family Cancer: Yes Hx Family Neurologic Disorders: Yes (CVA) Father Living Status: Age at : 80 Cause of : CAD Hx Family Cardiac Disorders: Yes Medications and Allergies Aspirin 81 mg PO DAILY 12/22/15 [History] Cyanocobalamin (Vitamin B-12) [Vitamin B-12] 1,000 mcg SL DAILY 12/22/15 [ History] FLUoxetine HCl [Prozac] 40 mg PO DAILY 12/22/15 [History] Furosemide [Lasix] 20 mg PO DAILY 12/22/15 [History] Gabapentin [Neurontin] 300 mg PO HS 12/22/15 [History] Simvastatin [Zocor] 40 mg PO HS 12/22/15 [History] Omeprazole [PriLOSEC] 20 mg PO DAILY #21 cap 09/11/16 [Rx] Ergocalciferol (VITAMIN D2) [Vitamin D2] 2,000 units PO DAILY 03/04/17 [History] Loratadine [Claritin] 10 mg PO DAILY 03/04/17 [History] Albuterol Sulfate [Albuterol Inhaler] 2 puff IH QID PRN #1 inhaler 03/07/17 [Rx] Atenolol [Tenormin] 25 mg PO DAILY 02/28/18 [History] Pramipexole Di-HCl [Pramipexole Dihydrochloride] 0.5 mg PO DAILY 02/28/18 [ History] SUMAtriptan Succinate [Imitrex] 100 mg PO DAILY PRN 02/28/18 [History] Trazodone HCl 100 mg PO HS 02/28/18 [History] 3 Allergy/AdvReac Type Severity Reaction Status Date / Time Amoxicillin Allergy Rash Verified 02/28/18 16:01 codeine Allergy Rash Verified 02/28/18 16:01 diphenhydramine Allergy Difficulty Verified 02/28/18 16:01 [From Benadryl] Breathing All Systems: The remainder of the systems were reviewed and are negative Review of Systems: As per HPI Physical Examination - Vital Signs Vital Signs: Initial Vital Signs Temp Pulse Resp BP Pulse Ox 98.8 F 62 14 142/89 97 02/28/18 13:52 02/28/18 13:52 02/28/18 13:52 02/28/18 13:52 02/28/18 13:52 - Constitutional General appearance: comfortable - Neurologic Sensorimotor examination: intact, other (no nystagmus) Detailed motor examination: grossly full strength in all extremities, full strength in all major muscle groups Motor examination - right side: 5/5: deltoids, biceps, triceps, wrist flexion, wrist extension, assistant professor of english, hip flexors, tibialis Anterior, quadriceps, toe extension (EHL), plantarflexion Motor examination - left side: 5/5: deltoids, biceps, triceps, wrist flexion, wrist extension, hip flexors, assistant professor of english, quadriceps, tibialis Anterior, toe extension (EHL), plantarflexion Detailed sensory examination: intact, light touch Mental Status Examination: awake, alert, oriented to person, oriented to place, oriented to time, follows commands appropriately, answers questions appropriately, no aphasia Cranial nerve examination: PERRL, EOMI, sensory to face intact, no facial asymmetry is present, no dysarthria, hearing is intact symmetrically, soft palate elevates bilaterally upon phonation, flexes SCM and trapezius muscles symmetrically with full power, tongue protrudes midline, no atrophy or facial fasiculations present Cerebellar examination: no dysmetria, performs finger to nose and heel to don symmetrically without ataxia Results - Laboratory Findings CBC and BMP: 03/01/18 05:28 03/01/18 05:28 Abnormal lab findings: Abnormal lab results Hgb 11.1 g/dL (11.5-15.4) L D 03/01/18 05:28 Hct 33.8 % (35.3-44.9) L 03/01/18 05:28 PT 12.2 Seconds (9.4-12.1) H 03/01/18 05:28 Chloride 111 mEq/L (98-107) H 03/01/18 05:28 POC Glucose 105 mg/dL (70-99) H 02/28/18 14:59 Calcium 8.5 mg/dL (8.6-10.3) L 03/01/18 05:28 Serum Total Protein 6.0 g/dL (6.4-8.9) L 03/01/18 05:28 LDL Cholesterol, Calc 113 mg/dL (0-99) H 03/01/18 05:28 Ur Specific [place] 1.008 (1.010-1.025) L 02/28/18 14:05 Consult Discharge Plan - Plan Instructions: Transient Ischemic Attack (DC), Hypotension (DC), Dizziness (GEN) Additional Instructions: Follow-up appointments: If there is not an appointment listed below, please call your physician and schedule a follow-up appointment. If you have congestive heart failure and your symptoms return, make an appointment with your physician. Medication List: Carry an up to date list of medications you are taking at all time. We have given you an updated medication list including any new medications that you have been prescribed. Please provide that list to your primary provider Symptoms: If your condition changes or you experience any of the following symptoms, notify your physician immediately: Unusual or worsening pain, fever, persistent nausea and vomiting, bleeding, increase in swelling (especially in your legs), sudden weight gain, extreme dizziness, chest pain, increased drainage or redness from a wound or incision. Go to the emergency department if you experience a problem with breathing. Weights: If you have a history of swelling or shortness of breath, weigh yourself daily and notify your physician if you have a weight gain of two or more pounds in one day or 5 or more pounds in a week. If you experience any of the warning signs for stroke: Sudden numbness or weakness of the face, arm or leg; especially on one side of the body, sudden confusion, trouble speaking or understanding, sudden trouble seeing in one or both eyes, sudden trouble walking, dizziness, loss of balance or coordination, sudden sever headache with no cause; Call 911 or go to the emergency room. Stroke is a medical emergency. Some risk factors for stroke: Age, cigarette smoking, diabetes, excessive alcohol consumption, family history , high blood pressure, overweight, physical inactivity, prior stroke, heart attack, diagnosis of carotid artery stenosis or other artery disease. If you smoke, STOP: Smoking or tobacco use significantly increases your risk of heart and lung disease. Your chance of disease greatly increases if you continue to smoke. For more information, call the [place] tobacco quit line for smoking cessation NOW ( ) Referrals: Nic Rubio MD [Primary Care Provider] -
[2018-03-01] MEDS: Cyanocobalamin (B-12) 1,000 MCG TABLET PO SCH (09:26)
[2018-03-01] MEDS: Cholecalciferol (D-3) 1,000 UNIT TABLET PO SCH (09:26)
[2018-03-01] MEDS: Furosemide 20 MG TABLET PO SCH (09:27)
[2018-03-01] MEDS: FLUoxetine 20 MG CAPSULE PO SCH (09:27)
[2018-03-01] MEDS: Aspirin Enteric Coated 81 MG Tablet PO SCH (09:27)
[2018-03-01] MEDS: Loratadine 10 MG TABLET PO SCH (09:27)
[2018-03-01] MEDS ORDERED: Isovue-370 500 ML INFUS..BTL IV ONE (11:37)
--- NOTE | 2018-03-01 12:25 | Discharge Summary ---
- NOTES TO OUTPATIENT PROVIDER Notes to Outpatient Provider: Patient admitted with dizziness 3 days. Likely hypertensive urgency. Neurological workup unremarkable. Carotid Dopplers completed finding 60-79% stenosis in the distal ICA. Orders not resulted at time of discharge: Pending orders 03/01/18 13:00 CTA Neck [CT angio neck] [CT] Routine 03/02/18 04:00 Complete Blood Count [HEME] AM 0400 Comprehensive Metabolic Panel AM 0400 03/03/18 04:00 Complete Blood Count [HEME] AM 0400 Comprehensive Metabolic Panel AM 0400 Date of Encounter: 03/01/18 Time of Encounter: 12:23 - Discharge Diagnosis (1) Left-sided weakness Priority: Secondary Status: Resolved Assessment and Plan: Patient presented with dizziness and some left-sided drift. Symptoms were self-limited and resolved with improvement of blood pressure Nonfocal neurological exam No abnormal findings on neurological workup She was noted to have a 60-79% stenosis in the left carotid ICA However, this was not seen on CTA of neck Neurology was seeing the patient in consultation Dizziness and symptoms could have been caused by elevation in blood pressure TTE September 2017 shows no significant pathology. With no evidence of stroke and normal TTE in September no reason for repeat TTE. Continue antiplatelet therapy, aspirin 81 mg daily, continue statin Uneventful hospital course. Remained hemodynamically stable. Instructed to follow-up with PCP within 1 week of discharge. Additionally, instructed to return to the ED should dizziness and left-sided weakness returned. (2) Dizziness Priority: Primary Status: Resolved Assessment and Plan: See above (3) Diabetes Priority: Secondary Status: Acute Assessment and Plan: History of diabetes. Blood glucoses remained stable throughout stay. 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 Continue home anti-HTN medications at discharge Qualifiers: Hypertension type: essential hypertension Qualified Code(s): I10 - Essential (primary) hypertension (5) COPD (chronic obstructive pulmonary disease) Priority: Secondary Status: Chronic Assessment and Plan: History of COPD, not in acute exacerbation. Resume COPD medications at discharge Qualifiers: COPD type: chronic bronchitis Chronic bronchitis type: unspecified Qualified Code(s): J42 - Unspecified chronic bronchitis Hospital course: Ms. Grissom is a 67 year old female Please see assessment and plan for hospital course Discharge discussed with: patient, nurse, case management, process consultant - Time Spent with Patient Total time spent providing and/or coordinating discharge services: Less than 30 minutes - Discharge Medications Home Medications: Aspirin 81 mg PO DAILY 12/22/15 [History] Cyanocobalamin (Vitamin B-12) [Vitamin B-12] 1,000 mcg SL DAILY 12/22/15 [ History] FLUoxetine HCl [Prozac] 40 mg PO DAILY 12/22/15 [History] Furosemide [Lasix] 20 mg PO DAILY 12/22/15 [History] Gabapentin [Neurontin] 300 mg PO HS 12/22/15 [History] Simvastatin [Zocor] 40 mg PO HS 12/22/15 [History] Omeprazole [PriLOSEC] 20 mg PO DAILY #21 cap 09/11/16 [Rx] Ergocalciferol (VITAMIN D2) [Vitamin D2] 2,000 units PO DAILY 03/04/17 [History] Loratadine [Claritin] 10 mg PO DAILY 03/04/17 [History] Albuterol Sulfate [Albuterol Inhaler] 2 puff IH QID PRN #1 inhaler 03/07/17 [Rx] Atenolol [Tenormin] 25 mg PO DAILY 02/28/18 [History] Pramipexole Di-HCl [Pramipexole Dihydrochloride] 0.5 mg PO DAILY 02/28/18 [ History] SUMAtriptan Succinate [Imitrex] 100 mg PO DAILY PRN 02/28/18 [History] Trazodone HCl 100 mg PO HS 02/28/18 [History] Allergies/Adverse Reactions: 3 Allergy/AdvReac Type Severity Reaction Status Date / Time Amoxicillin Allergy Rash Verified 02/28/18 16:01 codeine Allergy Rash Verified 02/28/18 16:01 diphenhydramine Allergy Difficulty Verified 02/28/18 16:01 [From Benadryl] Breathing Date of admission: 02/28/18 15:42 Primary care physician: Nic Rubio MD Consults: 02/28/18 16:15 Consult to Speedboat Operator [CONS] Routine Reason for SW Consult: may need home care related to physical needs Consult to Speech Therapy [CONS] Routine Comment: Evaluate, develop and implement POC Reason for Consult: Left sided weakness Time Notified: 16:20 Call Completed: Yes Discharging clinician: Remberto Olguin Anticipated date of discharge: 03/01/18 - Constitutional Vitals: Temp Pulse Resp BP Pulse Ox 98.6 F 64 14 101/62 92 03/01/18 10:45 03/01/18 10:45 03/01/18 10:45 03/01/18 10:46 03/01/18 10:45 General appearance: Present: cooperative, A&O X 3, answers questions appropriately - Head Head exam: Present: atraumatic, normocephalic - Eye Eye exam: Present: PERRL, conjuntiva pink, sclera anicteric Pupils: Present: PERRL - Neck Neck exam general surgery: Present: supple, trachea midline. Absent: lymphadenopathy - Respiratory Respiratory exam: Present: CTAB. Absent: accessory muscle use, rales, rhonchi, wheezes - Cardiovascular Cardiovascular exam: Present: RRR, +S1, +S2. Absent: diastolic murmur, gallop, rubs, systolic murmur - GI/Abdominal GI/Abdominal exam: Present: normal bowel sounds, soft, no peritoneal signs. Absent: distended, tenderness - Extremities Exam Extremities exam: Present: warm, radial pulses palpable and symmetrical. Absent : calf tenderness, cyanotic, pedal edema - Neurological Exam Neurological exam: Present: alert, CN II-XII intact, normal gait, oriented X3, no focal deficits, strengths equal and symetr throughout. Absent: abnormal gait , motor sensory deficit, pronater drift, facial droop, speech deficit - Skin Skin exam: Present: dry, intact - Patient Status Disposition: Home, Self-Care Condition: Fair Functional capacity at discharge: independent ambulation Overall status at discharge: patient is progressing back to baseline - Discharge Instructions Instructions: Transient Ischemic Attack (DC), Hypotension (DC), Dizziness (GEN) Follow Up With: Nic Rubio MD [Primary Care Provider] - Additional Instructions: Follow-up appointments: If there is not an appointment listed below, please call your physician and schedule a follow-up appointment. If you have congestive heart failure and your symptoms return, make an appointment with your physician. Medication List: Carry an up to date list of medications you are taking at all time. We have given you an updated medication list including any new medications that you have been prescribed. Please provide that list to your primary provider Symptoms: If your condition changes or you experience any of the following symptoms, notify your physician immediately: Unusual or worsening pain, fever, persistent nausea and vomiting, bleeding, increase in swelling (especially in your legs), sudden weight gain, extreme dizziness, chest pain, increased drainage or redness from a wound or incision. Go to the emergency department if you experience a problem with breathing. Weights: If you have a history of swelling or shortness of breath, weigh yourself daily and notify your physician if you have a weight gain of two or more pounds in one day or 5 or more pounds in a week. If you experience any of the warning signs for stroke: Sudden numbness or weakness of the face, arm or leg; especially on one side of the body, sudden confusion, trouble speaking or understanding, sudden trouble seeing in one or both eyes, sudden trouble walking, dizziness, loss of balance or coordination, sudden sever headache with no cause; Call 911 or go to the emergency room. Stroke is a medical emergency. Some risk factors for stroke: Age, cigarette smoking, diabetes, excessive alcohol consumption, family history , high blood pressure, overweight, physical inactivity, prior stroke, heart attack, diagnosis of carotid artery stenosis or other artery disease. If you smoke, STOP: Smoking or tobacco use significantly increases your risk of heart and lung disease. Your chance of disease greatly increases if you continue to smoke. For more information, call the [place] tobacco quit line for smoking cessation QUIT-NOW ( ) - Diet and Activity Activity: increase activity as tolerated, resume usual activities as tolerated Diet: advance to your usual diet - VTE Documentation of Mechanical Device: Intermittent pneumatic compression device
[2018-03-01] MEDS: traZODone 50 MG TABLET PO SCH (21:15)
[2018-03-02] MEDS: 0.9 % Sodium Chloride 1,000 ML IVC SCH (04:02)
[2018-03-02 05:36] LABS: Basophils % 0.7 %; Eosinophils # 0.2 K/mcL (0.0-0.6); Eosinophils % 3.1 %; Hematocrit 34.2 % (35.3-44.9); Hemoglobin 10.9 g/dL (11.5-15.4); Immature Granulocytes % 0.2 % (0-4); Lymphocytes # 2.1 K/mcL (0.6-4.6); Lymphocytes % 35.7 %; Mean Corpuscular HGB Conc 31.9 g/dL (31.6-35.5); Mean Corpuscular Hemoglobin 28.2 pg (28.0-33.3); Mean Corpuscular Volume 88.4 fL (83.0-100.0); Mean Platelet Volume 9.7 fL (9.4-12.4); Monocytes # 0.7 K/mcL (0.0-1.3); Monocytes % 11.5 %; Neutrophils # 2.8 K/mcL (1.6-8.9); Platelet Count 285 K/mcL (140-400); Red Blood Count 3.87 M/mcL (3.82-4.97); Red Cell Distribution Width 13.8 % (11.5-14.5); Segmented Neutrophils % 48.8 %
[2018-03-02 05:47] LABS: Alanine Aminotransferase 12 Units/L (7-52); Albumin 3.6 g/dL (3.5-5.7); Albumin/Globulin Ratio 1.4 (1.1-2.2); Alkaline Phosphatase 69 Units/L (34-104); Aspartate Amino Transferase 16 Units/L (13-39); BUN/Creatinine Ratio 14 (6-26); Bilirubin,Total 0.3 mg/dL (0.3-1.0); Blood Urea Nitrogen 13 mg/dL (8-23); Calcium 8.8 mg/dL (8.6-10.3); Carbon Dioxide 24 mEq/L (23-29); Chloride 110 mEq/L (98-107); Globulin 2.5 g/dL (2.4-3.5); Glucose 98 mg/dL (70-105); Osmolality,Calculated 296 (280-300); Potassium 4.2 mEq/L (3.5-5.1); Sodium 143 mEq/L (136-145); Total Protein 6.1 g/dL (6.4-8.9); eGFR For African Americans > 60 (> 60); eGFR For Non-African Americans > 60 (> 60)
[2018-03-02 07:07] VITALS: BP 117/73
[2018-03-02] MEDS: Aspirin Enteric Coated 81 MG Tablet PO SCH (09:10)
[2018-03-02] MEDS: Loratadine 10 MG TABLET PO SCH (09:11)
[2018-03-02] MEDS: Cholecalciferol (D-3) 1,000 UNIT TABLET PO SCH (09:11)
[2018-03-02] MEDS: Furosemide 20 MG TABLET PO SCH (09:11)
[2018-03-02] MEDS: FLUoxetine 20 MG CAPSULE PO SCH (09:11)
[2018-03-02] MEDS: Cyanocobalamin (B-12) 1,000 MCG TABLET PO SCH (09:11)
--- NOTE | 2018-03-02 10:15 | Event Note ---
Date of Encounter: 03/02/18 Time of Encounter: 10:13 Patient seen and examined at bedside today. No acute changes overnight. Admitted with dizziness and hypertension. Dizziness resolved with resolution of hypertension. Neurological examination unremarkable, no focal neuro deficits. MRI of head negative for acute intracranial abnormality, MRA of neck negative for occlusion. Carotid Dopplers showing 60-79% stenosis in the left ICA however not evident on MRA of neck. Neurology consult as an throughout stay has now signed off. Does not appear to be neurological issue. Patient is medically stable condition upon discharge. Instructed to follow-up with PCP within 1 week of discharge. Additionally, she has been informed to return to the ED should her symptoms return. Patient verbalized understanding denies any further questions at this time.
--- NOTE | 2018-03-03 21:15 | Electrocardiograph Report ---
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
== END 2018-03-02 09:45 | disposition home or self-care (01) ==
LOC: 3BNU 13:51 → EMEROO 13:51 → 3BNU 16:00
PROVIDERS: ADMIT Family Medicine; ATTEND Family Medicine

== ENCOUNTER 2018-05-28 02:05 | Observation (INO) ==
--- NOTE | 2018-05-28 02:32 | Emergency Department Note ---
Disposition Clinical Impression: Chest pain Qualifiers: Chest pain type: unspecified Qualified Code(s): R07.9 - Chest pain, unspecified Disposition: Admitted As Inpatient Condition: Fair Referrals: Nic Rubio MD [Primary Care Provider] - Time of Disposition: 05:58 General Adult HPI - General Stated complaint: chest pain Time Seen by Provider: 05/28/18 02:22 Source: patient, EMS Mode of arrival: EMS Limitations: no limitations, age Nursing Notes Reviewed: Yes Vital Signs Reviewed: Yes - History of Present Illness HPI Narrative: Patient is a 67-year-old female with history COPD, high cholesterol, pre- diabetes, and hypertension, department for evaluation dyspnea and chest pain. The patient states that her symptoms started 3 days ago when she had a cough and then yesterday at approximately 4:00 PM she began having substernal pressure -like pain with radiation into her left arm associated with dyspnea. She states at its worst the pain was an 8/10. States coming in by squad she received a full dose of aspirin. States at this time her pain is improving is currently a 3/10. States that she received nitroglycerin on the squad which improved her chest pain. Denies fevers, chills, productive cough, back pain, abdominal pain, nausea, vomiting. - Related Data Home Medications Medication Instructions Recorded Confirmed Aspirin 81 mg PO DAILY 12/22/15 02/28/18 Cyanocobalamin (Vitamin B-12) 1,000 mcg SL DAILY 12/22/15 02/28/18 [Vitamin B-12] FLUoxetine HCl [Prozac] 40 mg PO DAILY 12/22/15 02/28/18 Furosemide [Lasix] 20 mg PO DAILY 12/22/15 02/28/18 Gabapentin [Neurontin] 300 mg PO HS 12/22/15 02/28/18 Simvastatin [Zocor] 40 mg PO HS 12/22/15 02/28/18 Ergocalciferol (VITAMIN D2) 2,000 units PO DAILY 03/04/17 02/28/18 [Vitamin D2] Loratadine [Claritin] 10 mg PO DAILY 03/04/17 02/28/18 Atenolol [Tenormin] 25 mg PO DAILY 02/28/18 02/28/18 Pramipexole Di-HCl [Pramipexole 0.5 mg PO DAILY 02/28/18 02/28/18 Dihydrochloride] SUMAtriptan Succinate [Imitrex] 100 mg PO DAILY PRN 02/28/18 02/28/18 Trazodone HCl 100 mg PO HS 02/28/18 02/28/18 Previous Rx's Medication Instructions Recorded Omeprazole [PriLOSEC] 20 mg PO DAILY #21 cap 09/11/16 Albuterol Sulfate [Albuterol 2 puff IH QID PRN #1 inhaler 03/07/17 Inhaler] Naproxen [Naprosyn] 500 mg PO BID #20 tablet 03/16/18 Ondansetron ODT [Zofran ODT] 4 mg SL Q6HR #20 tab.rapdis 03/16/18 Allergies Allergy/AdvReac Type Severity Reaction Status Date / Time Amoxicillin Allergy Rash Verified 02/28/18 16:01 codeine Allergy Rash Verified 02/28/18 16:01 diphenhydramine Allergy Difficulty Verified 02/28/18 16:01 [From Benadryl] Breathing All systems ED: reviewed and negative except as stated. Review of Systems: As Per HPI Constitutional: Denies: fever, chills Cardiovascular: Reports: chest pain, dyspnea on exertion. Denies: palpitations , edema Respiratory: Reports: dyspnea. Denies: cough, wheezes Past Medical History - Past Medical History Attestation: Yes The following information was validated with the patient. Medical history: Reports: asthma, COPD, GERD, hyperlipidemia, hypertension, TIA , other Surgical history: Reports: knee replacement Psychiatric history: Reports: anxiety, depression - Social History Smoking Status: Former smoker Smokeless Tobacco Status: No Alcohol use: Reports: none Drug use: Reports: none Physical Exam CONSTITUTIONAL: Well-appearing; well-nourished; A&O X 3, in no apparent distress HEAD: Normocephalic; atraumatic EYES: PERRL, no scleral icterus NOSE: The nose is normal in appearance without rhinorrhea NECK: No JVD or distended neck veins RESP: Normal chest excursion with respiration; breath sounds clear and equal bilaterally; no wheezes, rhonchi, or rales CARD: Regular rhythm, without murmurs, rub or gallop ABD: Non-distended; non-tender, soft, without rigidity, rebound or guarding,no pulsatile mass CHEST: Pain with palpation over the anterior chest mahan bilaterally. SKIN: Normal for age and race; warm and dry without diaphoresis ; no apparent lesions EXTREMITIES: Pulses are 2 plus and equal times 4 extremities, no peripheral edema or calf muscle pain Course Course Narrative: Plan at this time is to evaluate the patient for her chest pain for ACS ideology. Her initial EKG is not ischemic. She will undergo troponin and basic labs as well as a chest x-ray. Also give her breathing treatment in the meantime since she states she is short of breath and has a history of COPD with no increased oxygen requirement. Given patient's moderate heart score with her risk factors and age, she will come into the hospital for further evaluation and management of her chest pain. - Reevaluation(s) Reevaluation #1: Patient symptoms improved with the albuterol and motrin. Plan is for admission to the hospital for r/o ACS. Patient accepted by Dr. Peacock. Time: 05:58 Vital Signs Temperature 98.4 F 05/28/18 02:17 Pulse Rate 78 05/28/18 02:17 Respiratory Rate 17 05/28/18 02:17 Blood Pressure 109/70 05/28/18 02:17 O2 Sat by Pulse Oximetry 96 05/28/18 02:17 Temperature 98.4 F 05/28/18 02:17 Pulse Rate 79 05/28/18 04:43 Respiratory Rate 11 05/28/18 04:43 Blood Pressure 107/67 05/28/18 04:43 O2 Sat by Pulse Oximetry 97 05/28/18 04:43 Oxygen Delivery Oxygen Delivery Room Air Medical Decision Making - Medical Records Medical records reviewed: Yes I reviewed the patient's medical records. - Lab Data Lab results reviewed: Yes I reviewed the patient's lab results. Result diagrams: 05/28/18 03:11 05/28/18 03:11 Lab Results 05/28/18 05/28/18 Range/Units 03:11 03:11 WBC 9.4 (4.3-11.1) K/mcL RBC 4.42 (3.82-4.97) M/mcL Hgb 12.9 (11.5-15.4) g/dL Hct 38.9 (35.3-44.9) % MCV 88.0 (83.0-100.0) fL MCH 29.2 (28.0-33.3) pg MCHC 33.2 (31.6-35.5) g/dL RDW 13.4 (11.5-14.5) % Plt Count 319 (140-400) K/mcL MPV 9.2 L (9.4-12.4) fL Immature Gran % 0.2 (0-4) % Seg Neutrophils % 55.8 % Lymphocytes % 32.0 % Monocytes % 9.7 % Eosinophils % 1.8 % Basophils % 0.5 % Neutrophils # 5.3 (1.6-8.9) K/mcL Lymphocytes # 3.0 (0.6-4.6) K/mcL Monocytes # 0.9 (0.0-1.3) K/mcL Eosinophils # 0.2 (0.0-0.6) K/mcL Basophils # 0.1 (0.0-0.2) K/mcL Sodium 137 (136-145) mEq/L Potassium 4.0 (3.5-5.1) mEq/L Chloride 103 (98-107) mEq/L Carbon Dioxide 25 (23-29) mEq/L BUN 14 (8-23) mg/dL Creatinine 0.98 (0.60-1.20) mg/dL Est GFR ( Amer) > 60 (> 60) Est GFR (Non-Af Amer) 57 L (> 60) BUN/Creatinine Ratio 14 (6-26) Glucose 110 H (70-105) mg/dL Calculated Osmolality 285 (280-300) Calcium 9.0 (8.6-10.3) mg/dL Troponin I < 0.03 (< 0.04) ng/mL - Radiology Data Radiology results reviewed: Yes I reviewed the patient's radiology results. Chest X-Ray 05/28/18 02:29 IMPRESSION: No acute findings. D/ / Levy Neil / Levy Neil Interpreting Provider: Levy Neil - EKG Data EKG #1 EKG attestation: Yes I reviewed and interpreted this EKG. EKG results narrative: EKG done at 2:38 shows sinus rhythm at a rate of 74 bpm. Normal axis. Intervals within normal limits. No signs of ST elevation, ST depression or Q waves present. Attestation Statement - Attestation Attestation: I examined this patient and my medical decision-making was reviewed with the Resident Physician. I agree with the documented findings, disposition and treatment plan as described except to the extent set forth below. Female patient with atypical chest pain. EKG nondiagnostic for ischemia or infarction at this time. Plan to admit for ACS rule out given risk factors. Patient stable at time of admission.
[2018-05-28] MEDS ORDERED: Albuterol 2.5 MG/3 ML NEBULIZER IH ONE (02:37)
[2018-05-28] MEDS: Nitroglycerin 0.4 MG TAB.SUBL SL ONE ×3 (02:46→04:43)
[2018-05-28 03:22] LABS: Basophils # 0.1 K/mcL (0.0-0.2); Basophils % 0.5 %; Eosinophils # 0.2 K/mcL (0.0-0.6); Eosinophils % 1.8 %; Hematocrit 38.9 % (35.3-44.9); Hemoglobin 12.9 g/dL (11.5-15.4); Immature Granulocytes % 0.2 % (0-4); Mean Corpuscular HGB Conc 33.2 g/dL (31.6-35.5); Mean Corpuscular Hemoglobin 29.2 pg (28.0-33.3); Mean Platelet Volume 9.2 fL (9.4-12.4); Monocytes # 0.9 K/mcL (0.0-1.3); Monocytes % 9.7 %; Neutrophils # 5.3 K/mcL (1.6-8.9); Platelet Count 319 K/mcL (140-400); Red Blood Count 4.42 M/mcL (3.82-4.97); Red Cell Distribution Width 13.4 % (11.5-14.5); Segmented Neutrophils % 55.8 %
[2018-05-28 03:43] LABS: BUN/Creatinine Ratio 14 (6-26); Blood Urea Nitrogen 14 mg/dL (8-23); Carbon Dioxide 25 mEq/L (23-29); Chloride 103 mEq/L (98-107); Glucose 110 mg/dL (70-105); Osmolality,Calculated 285 (280-300); Sodium 137 mEq/L (136-145); eGFR For Non-African Americans 57 (> 60)
[2018-05-28 03:45] LABS: Troponin I < 0.03 ng/mL (< 0.04)
[2018-05-28] MEDS ORDERED: Ibuprofen 400 MG TABLET PO ONE (03:58)
--- NOTE | 2018-05-28 09:03 | Electrocardiograph Report ---
[facility] [place] [facility] Test Date: 2018-05-28 Pat Name: Dayana Grissom Department: [id number] Room: 2S0 Gender: F Rail Layer: : 1950 Requested By: Johnson Higuera Order Number: [id number] Reading MD: Constantin Ricci Measurements Intervals [place] Rate: 74 P: 38 CT: 125 QRS: 19 QRSD: 82 T: 49 QT: 394 QTc: 438 Interpretive Statements Sinus rhythm Consider left atrial enlargement Electronically Signed On 05-28-2018 9:01:56 EDT by Constantin Ricci
[2018-05-28] MEDS ORDERED: Naloxone 0.4 MG/ML INJ IVP PRN (09:55)
[2018-05-28] MEDS ORDERED: GI Cocktail 40 ML EACH PO ONE (11:02)
[2018-05-28 11:44] VITALS: BP 118/82
--- NOTE | 2018-05-28 13:32 | Internal Med History&Physical ---
Date of Encounter: 05/28/18 Time of Encounter: 08:30 Internal Medicine - H&P: HPI Chief complaint: Chest pain and dyspnea on exertion Admitted From: Emergency Dept Plans for Post Hospital Care: Home History of present illness: Ms. Grissom is a 67 year old female with a past medical history of COPD/ hyperlipidemia/apprehension who presented with dyspnea on exertion and chest pain which started at rest early last night. The patient states that she had chest discomfort which started in the middle of her chest and went across to her left side and it was at rest and not associated with any exertion. She grades it at 6/10 in severity and no radiation and no further aggravating or relieving factors. She did feel that this was most like her reflux pain that she has had for many years. She has been on a proton pump inhibitor and in fact had to undergo dilatation of esophagus strictures in the past-I have not been able to verify this information but this is based on her history. In the ER her EKG was noted to have sinus rhythm with no ST elevation or depression She will set of troponin was negative. On the way to the ER the patient had the nitroglycerin and aspirin which significantly improved her symptoms. She is currently chest pain-free at the time of my examination. Past Med Surg Social Fam HX - Past Medical History Medical history: asthma, COPD, GERD, hyperlipidemia, hypertension, TIA, other Psychiatric history: anxiety, depression - Past Surgical History Surgical History: knee replacement Additional surgical history: left knee replacement - Social History Smoking Status: Former smoker Smokeless Tobacco Status: No Alcohol use: none Drug use: none - Family History Mother Family Member Ethnicity: Non- Living Status: Hx Family Cardiac Disorders: Yes Hx Family Respiratory Disorders: No Hx Family Cancer: Yes Hx Family Neurologic Disorders: Yes (CVA) Father Living Status: Hx Family Cardiac Disorders: Yes Internal Medicine - H&P: Meds Aspirin 81 mg PO DAILY 12/22/15 [History] Cyanocobalamin (Vitamin B-12) [Vitamin B-12] 1,000 mcg SL DAILY 12/22/15 [ History] FLUoxetine HCl [Prozac] 40 mg PO DAILY 12/22/15 [History] Furosemide [Lasix] 20 mg PO DAILY 12/22/15 [History] Gabapentin [Neurontin] 300 mg PO HS 12/22/15 [History] Simvastatin [Zocor] 40 mg PO HS 12/22/15 [History] Omeprazole [PriLOSEC] 20 mg PO DAILY #21 cap 09/11/16 [Rx] Ergocalciferol (VITAMIN D2) [Vitamin D2] 2,000 units PO DAILY 03/04/17 [History] Loratadine [Claritin] 10 mg PO DAILY 03/04/17 [History] Albuterol Sulfate [Albuterol Inhaler] 2 puff IH QID PRN #1 inhaler 03/07/17 [Rx] Atenolol [Tenormin] 25 mg PO DAILY 02/28/18 [History] Pramipexole Di-HCl [Pramipexole Dihydrochloride] 0.5 mg PO DAILY 02/28/18 [ History] SUMAtriptan Succinate [Imitrex] 100 mg PO DAILY PRN 02/28/18 [History] Trazodone HCl 100 mg PO HS 02/28/18 [History] 3 Allergy/AdvReac Type Severity Reaction Status Date / Time Amoxicillin Allergy Rash Verified 02/28/18 16:01 codeine Allergy Rash Verified 02/28/18 16:01 diphenhydramine Allergy Difficulty Verified 02/28/18 16:01 [From Benadryl] Breathing All Systems PM: A 10-system review of systems was performed and is negative for pertinent findings except as documented above in the HPI. - Constitutional Vitals: Temp Pulse Resp BP Pulse Ox 98.0 F 69 18 118/82 99 05/28/18 11:42 05/28/18 11:42 05/28/18 11:42 05/28/18 11:42 05/28/18 11:42 Exam: GENERAL: Alert, no distress, cooperative EYES: PERRLA, EOMI EARS: External ears normal, canals clear OROPHARYNX: Lips, mucosa, and tongue normal. Teeth and gums normal. Oropharynx normal. NECK: No jugulovenous distention, No carotid bruits, Carotid pulse normal contour, Supple LUNGS: Lungs clear to auscultation, Good diaphragmatic excursion CARDIAC: Normal S1 and S2; no rubs, murmurs, or gallops ABDOMEN: Abdomen soft, non-tender, BS normal, No masses or organomegaly EXTREMITIES: Extremities normal, no deformities, edema, clubbing or skin discoloration. Good capillary refill., No ulcers NEURO: Gait normal. Reflexes normal and symmetric. Sensation grossly intact, Cranial nerves II-XII intact PULSES: 2+ radial, 2+ carotid Rest of the exam is non contributory Internal Med - H&P Results - Labs CBC & Chem 7: 05/28/18 03:11 05/28/18 03:11 Labs: Cardiac Enzymes 05/28/18 Range/Units 10:09 Troponin I < 0.03 (< 0.04) ng/mL - EKG Data Prior EKG available for review: no Interpretation IM: normal EKG - Assessment and plan (1) Chest pain Current Visit: Yes Status: Acute Assessment and plan: Rule out acute coronary syndrome with serial troponins. I will place her on telemetry monitoring and check vital signs closely. Initial EKG not suggestive of any ST segment elevation or depression. Most likely etiology at this point is likely noncardiac with more history favoring GERD. I will give her a Maalox and GI cocktail as well as increase her PPI to twice a day. Qualifiers: Chest pain type: unspecified Qualified Code(s): R07.9 - Chest pain, unspecified (2) GERD (gastroesophageal reflux disease) Current Visit: Yes Status: Acute Assessment and plan: Patient per history has had an endoscopy in the past and had a stricture which was dilated. It seems like she has many years of history of GERD and has been on PPI but is subtherapeutic. I will increase to twice a day. If treatment of GERD with Maalox GI cocktail and increase in PPI dosing helps her then she will still need follow-up with a public defender or primary care physician Qualifiers: Esophagitis presence: without esophagitis Qualified Code(s): K21.9 - Gastro -esophageal reflux disease without esophagitis - Time Spent With Patient Total time spent is greater than 50% in coordination of care (as documented) at patient's floor/unit and/or counseling patient: 25 - 35 minutes
--- NOTE | 2018-05-28 15:41 | Discharge Summary ---
- NOTES TO OUTPATIENT PROVIDER Notes to Outpatient Provider: Follow-up with primary care physician in one to 2 weeks time for reflux Orders not resulted at time of discharge: Pending orders 05/28/18 16:00 Troponin I Q6H 05/28/18 22:00 Troponin I Q6H 05/29/18 04:00 Basic Metabolic Panel AM 0400 Complete Blood Count [HEME] AM 0400 Date of Encounter: 05/28/18 Time of Encounter: 15:39 - Discharge Diagnosis (1) Chest pain Priority: Primary Status: Acute Qualifiers: Chest pain type: unspecified Qualified Code(s): R07.9 - Chest pain, unspecified (2) GERD (gastroesophageal reflux disease) Priority: Secondary Status: Acute Qualifiers: Esophagitis presence: without esophagitis Qualified Code(s): K21.9 - Gastro -esophageal reflux disease without esophagitis Hospital course: Ms. Grissom is a 67 year old female who was placed in observation for chest pain rule out. Patient was negative for any changes on her telemetry monitoring and so far to cardiac enzymes have been negative. We are waiting for her third troponin which will be back later on tonight and if negative she can safely be discharged home. Her symptoms are consistent with non-RDI chest pain most likely due to her reflux disease. Have asked her to increase her PPI to twice daily and follow up with her primary care physician for the same. The difference between H&P and discharge was roughly 8 hours Discharge discussed with: patient - Time Spent with Patient Total time spent providing and/or coordinating discharge services: Greater than 30 minutes - Discharge Medications Home Medications: Aspirin 81 mg PO DAILY 12/22/15 [History] Cyanocobalamin (Vitamin B-12) [Vitamin B-12] 1,000 mcg SL DAILY 12/22/15 [ History] FLUoxetine HCl [Prozac] 40 mg PO DAILY 12/22/15 [History] Furosemide [Lasix] 20 mg PO DAILY 12/22/15 [History] Gabapentin [Neurontin] 300 mg PO HS 12/22/15 [History] Simvastatin [Zocor] 40 mg PO HS 12/22/15 [History] Omeprazole [PriLOSEC] 20 mg PO DAILY #21 cap 09/11/16 [Rx] Ergocalciferol (VITAMIN D2) [Vitamin D2] 2,000 units PO DAILY 03/04/17 [History] Loratadine [Claritin] 10 mg PO DAILY 03/04/17 [History] Albuterol Sulfate [Albuterol Inhaler] 2 puff IH QID PRN #1 inhaler 03/07/17 [Rx] Atenolol [Tenormin] 25 mg PO DAILY 02/28/18 [History] Pramipexole Di-HCl [Pramipexole Dihydrochloride] 0.5 mg PO DAILY 02/28/18 [ History] SUMAtriptan Succinate [Imitrex] 100 mg PO DAILY PRN 02/28/18 [History] Trazodone HCl 100 mg PO HS 02/28/18 [History] Allergies/Adverse Reactions: 3 Allergy/AdvReac Type Severity Reaction Status Date / Time Amoxicillin Allergy Rash Verified 02/28/18 16:01 codeine Allergy Rash Verified 02/28/18 16:01 diphenhydramine Allergy Difficulty Verified 02/28/18 16:01 [From Benadryl] Breathing Date of admission: 05/28/18 06:05 Primary care physician: Nic Rubio MD - Constitutional Vitals: Temp Pulse Resp BP Pulse Ox 98.0 F 69 18 118/82 99 05/28/18 11:42 05/28/18 11:42 05/28/18 11:42 05/28/18 11:42 05/28/18 11:42 Exam: GENERAL: Alert, no distress, cooperative EYES: PERRLA, EOMI EARS: External ears normal, canals clear OROPHARYNX: Lips, mucosa, and tongue normal. Teeth and gums normal. Oropharynx normal. NECK: No jugulovenous distention, No carotid bruits, Carotid pulse normal contour, Supple LUNGS: Lungs clear to auscultation, Good diaphragmatic excursion CARDIAC: Normal S1 and S2; no rubs, murmurs, or gallops ABDOMEN: Abdomen soft, non-tender, BS normal, No masses or organomegaly EXTREMITIES: Extremities normal, no deformities, edema, clubbing or skin discoloration. Good capillary refill., No ulcers NEURO: Gait normal. Reflexes normal and symmetric. Sensation grossly intact, Cranial nerves II-XII intact PULSES: 2+ radial, 2+ carotid Rest of the exam is non contributory - Patient Status Disposition: Home, Self-Care Functional capacity at discharge: independent ambulation - Discharge Instructions Instructions: Chest Pain (DC) Forms: ED Satisfaction Letter - Diet and Activity Activity: as per physical therapy Diet: advance to your usual diet
== END 2018-05-28 18:18 | disposition home or self-care (01) ==
LOC: EMEROOARM 02:05 → 2SOUTHHOLD 02:05
PROVIDERS: ADMIT Internal Medicine; ATTEND Pediatrics

== ENCOUNTER 2019-01-03 17:40 | Observation (INO) ==
[2019-01-03] MEDS ORDERED: Aspirin 81 MG TAB.CHEW PO STA (17:42)
--- NOTE | 2019-01-03 18:18 | Emergency Department Note ---
Disposition Clinical Impression: Cough Chest pain Qualifiers: Chest pain type: unspecified Qualified Code(s): R07.9 - Chest pain, unspecified COPD (chronic obstructive pulmonary disease) Qualifiers: COPD type: unspecified COPD Qualified Code(s): J44.9 - Chronic obstructive pulmonary disease, unspecified Disposition: Admitted As Inpatient Condition: Fair Referrals: NONE,PCP [Primary Care Provider] - Forms: ED Satisfaction Letter General Adult HPI - General Chief complaint: ED Chest Pain Stated complaint: Chest pain Time Seen by Provider: 01/03/19 17:43 Source: EMS Limitations: no limitations - History of Present Illness HPI Narrative: Patient presents complaining of chest pain or shortness of breath constant since noon. She has had an increase in her chronic cough today that is secondary to COPD. She has not had a fever. Coughing does not make it worse, but deep sameer athing does. Her cough has been nonproductive, no hemoptysis. Pain radiates to both arms. Associated with some nausea but no vomiting. She woke up around noon sweating. Pain shortness of breath of both made worse when she lies flat and improves somewhat when she sits up. She was given aspirin and nitroglycerin in route by paramedics, which brought her pain down from a 10 to an 8. She describes it as a dull pain in the center of her chest. No recent travel, trauma or surgery. She does have a history of a prior DVT about 10 years ago, not currently on anticoagulants. No history of cancer. Pain Scale: 8 - Related Data Home Medications Medication Instructions Recorded Confirmed Aspirin 81 mg PO DAILY 12/22/15 01/03/19 Cyanocobalamin (Vitamin B-12) 1,000 mcg SL DAILY 12/22/15 01/03/19 [Vitamin B-12] FLUoxetine HCl [Prozac] 20 mg PO DAILY 12/22/15 01/03/19 Furosemide [Lasix] 20 mg PO BID 12/22/15 01/03/19 Simvastatin [Zocor] 40 mg PO HS 12/22/15 01/03/19 Ergocalciferol (VITAMIN D2) 2,000 units PO DAILY 03/04/17 01/03/19 [Vitamin D2] Loratadine [Claritin] 10 mg PO DAILY 03/04/17 01/03/19 Metoprolol Succinate [Toprol Xl] 25 mg PO DAILY 01/03/19 01/03/19 Previous Rx's Medication Instructions Recorded Omeprazole [PriLOSEC] 20 mg PO DAILY #21 cap 09/11/16 Allergies Allergy/AdvReac Type Severity Reaction Status Date / Time Amoxicillin Allergy Rash Verified 07/19/18 07:48 codeine Allergy Rash Verified 07/19/18 07:48 diphenhydramine Allergy Difficulty Verified 07/19/18 07:48 [From Benadryl] Breathing All systems ED: reviewed and negative except as stated. 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 Gen.: Well-developed, well-nourished patient lying in bed who appears nontoxic. Head: Atraumatic, normocephalic. Eyes: Sclerae anicteric. ENT: Mucous membranes moist. Neck: No JVD. Heart: Regular rate and rhythm without appreciable murmur. Lungs: Normal respiratory pattern without respiratory distress, lungs clear to auscultation bilaterally. Abdomen: Soft, nontender, nondistended, no guarding or peritoneal signs. Skin: Warm and dry without rash. Neurologic: Awake, alert with normal speech and mental status. Cranial nerves grossly intact. No focal deficits or lateralizing signs. Psychiatric: Normal mood and affect. Musculoskeletal: No peripheral edema. No signs of trauma or DVT. Peripheral Vascular: Radial pulses 2+ and symmetrical b/l. - General Limitations: no limitations General appearance: alert Course Vital Signs Temperature 99.7 F H 01/03/19 17:43 Pulse Rate 73 01/03/19 17:43 Respiratory Rate 14 01/03/19 17:43 Blood Pressure 147/84 01/03/19 17:43 O2 Sat by Pulse Oximetry 99 01/03/19 17:43 Temperature 99.7 F H 01/03/19 17:43 Pulse Rate 73 01/03/19 17:43 Respiratory Rate 14 01/03/19 17:43 Blood Pressure 147/84 01/03/19 17:43 O2 Sat by Pulse Oximetry 99 01/03/19 17:43 Oxygen Delivery Oxygen Delivery Room Air Medical Decision Making - MDM Narrative Medical decision making narrative: Clinical suspicion for pulmonary embolism is low. She is low risk by well's criteria. D-dimer is been ordered. My suspicion for ischemia is not terribly high either. HEART score is H1 E0 A2 R2 = 5 with troponin pending. 1930: D-dimer is below the age-adjusted cutoff of 660. Troponin negative. A shared decision making process was initiated, and after explanation of the short and intermediate term prognosis for patients with a HEART score of 5, the patient opted for admission. Hospitalist paged. - Lab Data Result diagrams: 01/03/19 18:32 Lab Results 01/03/19 01/03/19 Range/Units 18:32 18:32 D-Dimer 504 H (0-500) ng/mLFEU Sodium 139 (136-145) mEq/L Potassium 4.0 (3.5-5.1) mEq/L Chloride 102 (98-107) mEq/L Carbon Dioxide 26 (23-29) mEq/L BUN 13 (8-23) mg/dL Creatinine 0.84 (0.60-1.20) mg/dL Est GFR ( Amer) > 60 (> 60) Est GFR (Non-Af Amer) > 60 (> 60) BUN/Creatinine Ratio 15 (6-26) Glucose 120 H (70-105) mg/dL Calculated Osmolality 289 (280-300) Calcium 9.6 (8.6-10.3) mg/dL Troponin I < 0.03 (< 0.04) ng/mL - EKG Data EKG #1 EKG attestation: Yes I reviewed and interpreted this EKG. EKG shows normal: sinus rhythm (Rate 88, normal intervals and QRS duration. No acute ischemic ST segment or T-wave changes.) EKG #2 EKG attestation: Yes I reviewed and interpreted this EKG. EKG shows normal: sinus rhythm (Rate 70, normal intervals and QRS duration. No acute ischemic ST segment or T-wave changes. Normal EKG.)
[2019-01-03 19:21] LABS: BUN/Creatinine Ratio 15 (6-26); Blood Urea Nitrogen 13 mg/dL (8-23); Calcium 9.6 mg/dL (8.6-10.3); Carbon Dioxide 26 mEq/L (23-29); Chloride 102 mEq/L (98-107); Glucose 120 mg/dL (70-105); Osmolality,Calculated 289 (280-300); Sodium 139 mEq/L (136-145); eGFR For Non-African Americans > 60 (> 60)
[2019-01-03 19:24] LABS: Troponin I < 0.03 ng/mL (< 0.04)
[2019-01-03 22:31] LABS: Basophils % 0.4 %; Eosinophils # 0.1 K/mcL (0.0-0.6); Eosinophils % 0.6 %; Hematocrit 39.3 % (35.3-44.9); Hemoglobin 12.7 g/dL (11.5-15.4); Immature Granulocytes % 0.2 % (0-4); Lymphocytes # 1.9 K/mcL (0.6-4.6); Mean Corpuscular HGB Conc 32.3 g/dL (31.6-35.5); Mean Corpuscular Hemoglobin 28.5 pg (28.0-33.3); Mean Corpuscular Volume 88.1 fL (83.0-100.0); Mean Platelet Volume 9.6 fL (9.4-12.4); Monocytes # 1.1 K/mcL (0.0-1.3); Monocytes % 9.8 %; Neutrophils # 8.2 K/mcL (1.6-8.9); Platelet Count 354 K/mcL (140-400); Red Blood Count 4.46 M/mcL (3.82-4.97); Red Cell Distribution Width 13.6 % (11.5-14.5)
[2019-01-04] MEDS ORDERED: Naloxone 0.4 MG/ML INJ IVP PRN (00:45)
[2019-01-04] MEDS ORDERED: D5% in Water 1,000 ML IVC PRN (00:48)
[2019-01-04] MEDS ORDERED: *HR* Dextrose 50 % in Water (Syg) 50 ML SYRINGE IVP PRN (00:48)
[2019-01-04] MEDS ORDERED: Dextrose Gel 15 GM/37.5 ML TUBE PO PRN ×2 (00:48)
--- NOTE | 2019-01-04 03:15 | Internal Med History&Physical ---
Date of Encounter: 01/04/19 Time of Encounter: 02:55 Internal Medicine - H&P: HPI Chief complaint: Chest pain Admitted From: Emergency Dept Plans for Post Hospital Care: Home History of present illness: Ms. Grissom is a 68 year old female Patient presented to the emergency room with chest pain and shortness of breath that started that around noon. She is also noted an increase in her cough. She states that her chest pain seems to radiate to both of her arms, but mostly on her left side. She is at some nausea, and she has associated epigastric pain with deep breathing sometimes. She called the ambulance, and she was given aspirin and nitroglycerin which improved patient's pain. She denies partaking in strenuous activity. Upon arrival to the emergency room, patient's vital signs were essentially within normal limits aside from an elevated temperature of 99.7. Patient's labs were also within normal limits, including a d-dimer of 504, with an age adjusted cut off 660. Patient's initial troponin was undetectable. Chest x-ray was performed that showed no acute cardiopulmonary abnormalities. EKG was negative for ischemic changes. She was sent to the medical floor for further management. Upon my assessment, patient is resting comfortably in hospital bed in no acute distress. She denies chest pain, vomiting, diarrhea, constipation. She has had some abdominal pain on occasion with deep breathing and she has had some nausea which has now improved. She has felt short of breath has increased cough. She does have a history of COPD. She has significant family history of heart problems in her mother and brother. Her father also had a heart attack. Her brother has history of diabetes as well as her sister. She states that she would not want to be resuscitated in the event was necessary. She stated that she wanted to be DNR DNI. Past Med Surg Social Fam HX - Past Medical History Medical history: asthma, COPD, DVT, GERD, hyperlipidemia, hypertension, TIA, other Additional medical history: diverticulitis. hemorrhoids Psychiatric history: anxiety, depression - Past Surgical History Surgical History: knee replacement Additional surgical history: left knee replacement - Social History Smoking Status: Former smoker Smokeless Tobacco Status: No Alcohol use: none Drug use: none - Family History Mother Family Member Ethnicity: Non- Living Status: Hx Family Cardiac Disorders: Yes Hx Family Respiratory Disorders: No Hx Family Cancer: Yes Hx Family Neurologic Disorders: Yes (CVA) Father Living Status: Hx Family Cardiac Disorders: Yes Internal Medicine - H&P: Meds Aspirin 81 mg PO DAILY 12/22/15 [History] Cyanocobalamin (Vitamin B-12) [Vitamin B-12] 1,000 mcg SL DAILY 12/22/15 [Histo ry] Furosemide [Lasix] 20 mg PO DAILY 12/22/15 [History] Simvastatin [Zocor] 40 mg PO HS 12/22/15 [History] Omeprazole [PriLOSEC] 20 mg PO DAILY #21 cap 09/11/16 [Rx] Ergocalciferol (VITAMIN D2) [Vitamin D2] 2,000 units PO DAILY 03/04/17 [History] Loratadine [Claritin] 10 mg PO DAILY 03/04/17 [History] Budesonide/Formoterol 80/4.5 [Symbicort 80/4.5] 2 puff IH BID 01/03/19 [History] Loratadine [Claritin] 10 mg PO DAILY 01/03/19 [History] Metoprolol Succinate [Toprol Xl] 25 mg PO DAILY 01/03/19 [History] Sertraline [Zoloft] 100 mg PO DAILY 01/03/19 [History] Trazodone HCl 100 mg PO HS PRN 01/03/19 [History] Allergy/AdvReac Type Severity Reaction Status Date / Time Amoxicillin Allergy Rash Verified 01/03/19 20:11 codeine Allergy Rash Verified 01/03/19 20:11 diphenhydramine Allergy Difficulty Verified 01/03/19 20:11 [From Benadryl] Breathing All Systems PM: A 10-system review of systems was performed and is negative for pertinent findings except as documented above in the HPI. - Constitutional Vitals: Temp Pulse Resp BP Pulse Ox 98.1 F 75 16 112/76 95 01/04/19 02:40 01/04/19 02:40 01/04/19 02:40 01/04/19 02:40 01/04/19 02:40 General appearance: Present: cooperative, A&O X 3, pleasant, no acute distress, answers questions appropriately Exam: - - Head Head exam: Present: normal inspection - Eye Eye exam: Present: EOMI, normal appearance - Neck Neck exam general surgery: Present: full ROM - Respiratory Respiratory exam: Present: CTAB. Absent: rales, respiratory distress, rhonchi, wheezes - Cardiovascular Cardiovascular exam: Present: RRR. Absent: diastolic murmur, systolic murmur - GI/Abdominal GI/Abdominal exam: Present: normal bowel sounds, soft. Absent: tenderness - Extremities Exam Extremities exam: Present: warm, radial pulses palpable and symmetrical. Absent: pedal edema, tenderness - Neurological Exam Neurological exam: Present: no focal deficits, strengths equal and symetr throughout. Absent: motor sensory deficit, facial droop, speech deficit - Skin Skin exam: Present: dry, normal color, warm Internal Med - H&P Results - Labs CBC & Chem 7: 01/04/19 06:27 01/04/19 06:27 Labs: Short CBC 01/03/19 Range/Units 18:32 WBC 11.4 H (4.3-11.1) K/mcL Hgb 12.7 (11.5-15.4) g/dL Hct 39.3 (35.3-44.9) % Plt Count 354 (140-400) K/mcL Neutrophils # 8.2 (1.6-8.9) K/mcL BMP 01/03/19 18:32 Sodium 139 Potassium 4.0 Chloride 102 Carbon Dioxide 26 BUN 13 Creatinine 0.84 Glucose 120 H Calcium 9.6 Cardiac Enzymes 01/03/19 01/04/19 Range/Units 18:32 00:17 Troponin I < 0.03 < 0.03 (< 0.04) ng/mL - Impressions ITS Impressions Chest X-Ray 01/03/19 17:42 IMPRESSION: No acute abnormality. D/ / Alberto Caban MD / Alberto Caban MD Interpreting Provider: Alberto Caban MD - Assessment and Plan (1) Chest pain Current Visit: Yes Status: Acute Assessment and plan: Patient's troponins continue to be undetectable, and no EKG changes have been noted. Patient had an echocardiogram performed in July of last year: Impressions: LVEF 55-60%. Normal LV chamber size, wall thickness and function. Mild left ventricular diastolic dysfunction. Normal right ventricular structure and function. No evidence of pulmonary hypertension. No significant valvular dysfunction. Continue to trend troponins classroom monitor Consider further workup if patient's chest pain returns, versus outpatient follow-up. Qualifiers: Chest pain type: unspecified Qualified Code(s): R07.9 - Chest pain, unspecified (2) Shortness of breath Current Visit: No Status: Acute Assessment and plan: Now improved, associated with patient's chest pain experienced prior. D-dimer elevated, however low likelihood of PE considering age-adjusted cut off. Continue oxygen supplementation as needed Management of chest pain as above (3) Diabetes Current Visit: No Status: Acute Assessment and plan: Patient is not insulin-dependent diabetic Monitor sugars every 6 hours Low-dose insulin sliding scale as needed Nothing by mouth diet for now, diabetic diet if cardiac workup negative Qualifiers: Diabetes mellitus type: type 2 Diabetes mellitus senior care insulin use: without termite exterminator use Diabetes mellitus complication status: without complication Qualified Code(s): E11.9 - Type 2 diabetes mellitus without complications (4) DVT prophylaxis Current Visit: Yes Status: Acute Assessment and plan: Subcutaneous heparin - Time Spent With Patient Total time spent is greater than 50% in coordination of care (as documented) at patient's floor/unit and/or counseling patient: Greater than 35 minutes
[2019-01-04] MEDS ORDERED: Melatonin 3 MG TABLET PO PRN (04:50)
[2019-01-04] MEDS: Insulin LISPRO 300 UNITS/3 ML VIAL SQ SCH ×3 (05:30→17:01)
[2019-01-04] MEDS: Acetaminophen 325 MG TABLET PO PRN ×2 (05:30→15:54)
[2019-01-04 06:44] LABS: Hematocrit 37.6 % (35.3-44.9); Hemoglobin 12.3 g/dL (11.5-15.4); Mean Corpuscular HGB Conc 32.7 g/dL (31.6-35.5); Mean Corpuscular Hemoglobin 28.7 pg (28.0-33.3); Mean Corpuscular Volume 87.6 fL (83.0-100.0); Mean Platelet Volume 9.4 fL (9.4-12.4); Platelet Count 319 K/mcL (140-400); Red Blood Count 4.29 M/mcL (3.82-4.97); Red Cell Distribution Width 13.7 % (11.5-14.5)
[2019-01-04 07:00] LABS: BUN/Creatinine Ratio 13 (6-26); Blood Urea Nitrogen 14 mg/dL (8-23); Calcium 9.1 mg/dL (8.6-10.3); Carbon Dioxide 26 mEq/L (23-29); Chloride 104 mEq/L (98-107); Glucose 99 mg/dL (70-105); Osmolality,Calculated 285 (280-300); Potassium 3.7 mEq/L (3.5-5.1); Sodium 137 mEq/L (136-145); eGFR For Non-African Americans 52 (> 60)
[2019-01-04] MEDS ORDERED: traZODone 50 MG TABLET PO PRN (08:16)
[2019-01-04] MEDS: Furosemide 20 MG TABLET PO SCH (09:02)
[2019-01-04] MEDS: Budesonide/Formoterol 80/4.5 MDI IH SCH ×2 (10:28→20:58)
[2019-01-04] MEDS: Metoprolol XL (24 HR) Succ 25 MG TAB.ER.24H PO SCH (11:07)
[2019-01-04] MEDS ORDERED: Regadenoson 0.4 MG/5 ML SYRINGE IVP ONE (11:11)
--- NOTE | 2019-01-04 11:44 | Internal Med Progress Note ---
<Hair Ortiz - Last Filed: 01/04/19 11:41> Hospitalist Progress Note - Encounter Date of Encounter: 01/04/19 Time of Encounter: 11:42 - Subjective Interval History: patient reports mild chest pain this morning. the location is in the epigastric region and worsens with palpation. She denies shortness of breath. She is able to ambulate for me when asked. She reports a family history of coronary artery disease in her brother, father, sister and mother. She denies any history of coronary artery disease herself. - Exam Vitals: Temp Pulse Resp BP Pulse Ox 97.6 F 66 16 101/67 96 01/04/19 07:46 01/04/19 07:46 01/04/19 07:46 01/04/19 07:46 01/04/19 07:46 Exam: General: pleasant, without distress Cardiovascualr: Regular rate and rhythm with no murmur, absent gallops or rubs, 1+ b/l pedal edema, radial pulses 2 out of 4 Lungs: Clear to auscultation bilaterally, not in respiratory distress Abdomen: Soft nontender, nondistended positive bowel sounds, absent hepatomegaly Skin: warm and dry, absent rash, absent open wounds and nodules MSK: absent clubbing, cyanosis, joints without swelling Neuro: Cranial nerves II through XII intact, UE and LE sensation equal bilaterally, UE and LEstrength 5/5, alert oriented 3, Heel to don intact, finger to nose intact, Gait intact, rhombergs sign negative, b/l plantar refl exes downwards Psych: good insight and judgment - Assessment and Plan (1) Chest pain Current Visit: Yes Status: Acute Assessment and Plan: Patient presents with chest pain She has extensive family history of coronary artery disease she is a former smoker chest x-ray was negative Troponin was negative EKG did not show any signs of ST elevation or depression echocardiogram and stress test ordered due to extensive family history. (2) COPD (chronic obstructive pulmonary disease) Current Visit: Yes Status: Chronic Assessment and Plan: not an exacerbation continue Symbicort. (3) Diabetes Current Visit: Yes Status: Acute Assessment and Plan: patient has history of diabetes Currently nothing by mouth for stress test continue every 6 hours sliding scale insulin. (4) GERD (gastroesophageal reflux disease) Current Visit: Yes Status: Acute Assessment and Plan: patient has history of gastric reflux disease She does have tenderness to palpation in the epigastric region We will restart her omeprazole and add Tums as needed for heartburn (5) Hypertension Current Visit: Yes Status: Acute Assessment and Plan: patient has a history of hypertension We will continue metoprolol, Lasix DVT Prophylaxis: heparin subcutaneous - Time Spent with Patient Total time spent is greater than 50% in coordination of care (as documented) at patient's floor/unit and/or counseling patient: Internal Medicine: Result - Labs CBC & Chem 7: 01/04/19 06:27 01/04/19 06:27 Labs: Short CBC 01/03/19 01/04/19 Range/Units 18:32 06:27 WBC 11.4 H 8.7 (4.3-11.1) K/mcL Hgb 12.7 12.3 (11.5-15.4) g/dL Hct 39.3 37.6 (35.3-44.9) % Plt Count 354 319 (140-400) K/mcL Neutrophils # 8.2 (1.6-8.9) K/mcL BMP 01/03/19 01/04/19 18:32 06:27 Sodium 139 137 Potassium 4.0 3.7 Chloride 102 104 Carbon Dioxide 26 26 BUN 13 14 Creatinine 0.84 1.05 Glucose 120 H 99 Calcium 9.6 9.1 Cardiac Enzymes 01/03/19 01/04/19 01/04/19 Range/Units 18:32 00:17 06:27 Troponin I < 0.03 < 0.03 < 0.03 (< 0.04) ng/mL - ABG Interpretation ABG results: PT/INR, D-dimer D-Dimer 504 ng/mLFEU (0-500) H 01/03/19 18:32 - Impressions Impressions Chest X-Ray 01/03/19 17:42 IMPRESSION: No acute abnormality. D/ / Alberto Caban MD / Alberto Caban MD Interpreting Provider: Alberto Caban MD Consult Discharge Plan - Plan Referrals: Edy Butler [Primary Care Provider] - <Luna Jones - Last Filed: 01/04/19 16:38> Hospitalist Progress Note - Encounter Date of Encounter: 01/04/19 - Exam Vitals: Temp Pulse Resp BP Pulse Ox 98.4 F 81 16 124/80 94 01/04/19 15:57 01/04/19 15:57 01/04/19 15:57 01/04/19 15:57 01/04/19 15:57 - Time Spent with Patient Total time spent is greater than 50% in coordination of care (as documented) at patient's floor/unit and/or counseling patient: Internal Medicine: Result - Labs CBC & Chem 7: 01/04/19 06:27 01/04/19 06:27 Labs: Short CBC 01/03/19 01/04/19 Range/Units 18:32 06:27 WBC 11.4 H 8.7 (4.3-11.1) K/mcL Hgb 12.7 12.3 (11.5-15.4) g/dL Hct 39.3 37.6 (35.3-44.9) % Plt Count 354 319 (140-400) K/mcL Neutrophils # 8.2 (1.6-8.9) K/mcL BMP 01/03/19 01/04/19 18:32 06:27 Sodium 139 137 Potassium 4.0 3.7 Chloride 102 104 Carbon Dioxide 26 26 BUN 13 14 Creatinine 0.84 1.05 Glucose 120 H 99 Calcium 9.6 9.1 Cardiac Enzymes 01/03/19 01/04/19 01/04/19 Range/Units 18:32 00:17 06:27 Troponin I < 0.03 < 0.03 < 0.03 (< 0.04) ng/mL - ABG Interpretation ABG results: PT/INR, D-dimer D-Dimer 504 ng/mLFEU (0-500) H 01/03/19 18:32 - Impressions Impressions Chest X-Ray 01/03/19 17:42 IMPRESSION: No acute abnormality. D/ / Alberto Caban MD / Alberto Caban MD Interpreting Provider: Alberto Caban MD Echocardiogram Limited Views 01/04/19 10:44 Impressions: LVEF 60%. Normal LV chamber size, wall thickness and function. Left Ventricular Wall Motion: Rest Echo Findings All wall segments showed normal motion. Findings: Study Quality * Technically adequate exam. ECG Findings * Normal sinus rhythm. Left Ventricle * LVEF 60%. * Normal LV chamber size, wall thickness and function. Aorta * Normally sized aortic root. Pericardium * The pericardium appears normal. - Attending Attestation I examined this patient and my medical decision-making was reviewed with the Resident Physician. I agree with the documented findings, disposition and treatment plan as described except to the extent set forth below. <Hair Ortiz - Last Filed: 01/04/19 11:41> (1) Chest pain Qualifiers: Chest pain type: unspecified Qualified Code(s): R07.9 - Chest pain, unspecified (2) COPD (chronic obstructive pulmonary disease) Qualifiers: COPD type: unspecified COPD Qualified Code(s): J44.9 - Chronic obstructive pulmonary disease, unspecified (3) Diabetes Qualifiers: Diabetes mellitus type: type 2 Diabetes mellitus prison insulin use: without middle or intermediate school principal use Diabetes mellitus complication status: without complication Qualified Code(s): E11.9 - Type 2 diabetes mellitus without complications (4) GERD (gastroesophageal reflux disease) Qualifiers: Esophagitis presence: without esophagitis Qualified Code(s): K21.9 - Gastro- esophageal reflux disease without esophagitis (5) Hypertension Qualifiers: Hypertension type: essential hypertension Qualified Code(s): I10 - Essential (primary) hypertension
[2019-01-04] MEDS: *HR* Heparin 5,000 UNIT/ML VIAL SQ SCH (17:05)
[2019-01-05] MEDS: Insulin LISPRO 300 UNITS/3 ML VIAL SQ SCH ×3 (00:42→12:27)
[2019-01-05] MEDS: *HR* Heparin 5,000 UNIT/ML VIAL SQ SCH (05:25)
[2019-01-05] MEDS: Budesonide/Formoterol 80/4.5 MDI IH SCH (07:42)
[2019-01-05 08:15] VITALS: BP 112/75
[2019-01-05] MEDS: Furosemide 20 MG TABLET PO SCH (10:09)
[2019-01-05] MEDS: Acetaminophen 325 MG TABLET PO PRN (10:09)
[2019-01-05] MEDS: Metoprolol XL (24 HR) Succ 25 MG TAB.ER.24H PO SCH (10:09)
--- NOTE | 2019-01-05 12:01 | Discharge Summary ---
<Hair Ortiz - Last Filed: 01/05/19 11:57> - NOTES TO OUTPATIENT PROVIDER Notes to Outpatient Provider: Would benefit from EGD in the outpatient setting Orders not resulted at time of discharge: Pending orders 01/03/19 17:42 EKG [ECG 12 lead ECG] [ECG] Stat 01/03/19 18:15 EKG [ECG 12 lead ECG] [ECG] Stat 01/03/19 19:40 EKG [ECG 12 lead ECG] [ECG] Stat 01/04/19 10:44 NM [place] perf SPECT multi [NM] Routine Date of Encounter: 01/05/19 Time of Encounter: 11:58 - Discharge Diagnosis (1) Chest pain Priority: Primary Status: Resolved Qualifiers: Chest pain type: other chest pain Qualified Code(s): R07.89 - Other chest pain; R07.8 - Other chest pain (2) COPD (chronic obstructive pulmonary disease) Priority: Secondary Status: Chronic Qualifiers: COPD type: unspecified COPD Qualified Code(s): J44.9 - Chronic obstructive pulmonary disease, unspecified (3) Diabetes Priority: Secondary Status: Acute Qualifiers: Diabetes mellitus type: type 2 Diabetes mellitus chcf insulin use: without chcf use Diabetes mellitus complication status: without complication Qualified Code(s): E11.9 - Type 2 diabetes mellitus without complications (4) GERD (gastroesophageal reflux disease) Priority: Secondary Status: Acute Qualifiers: Esophagitis presence: without esophagitis Qualified Code(s): K21.9 - Gastro-esophageal reflux disease without esophagitis (5) Hypertension Priority: Secondary Status: Acute Qualifiers: Hypertension type: essential hypertension Qualified Code(s): I10 - Essential (primary) hypertension Hospital course: Ms. Grissom is a 68 year old female presented with chest pain. Patient underwent chest pain rule out and had a negative chest x-ray, EKG, troponin. Patient is a extensive family history of coronary artery disease and is obese, former smoker. Echocardiogram showed left ventricular ejection fraction of 60%. Nuclear stress test was negative for ischemia. She did have epigastric tenderness. Increased her omeprazole from 20-40 mg daily. Recommend outpatient EGD. Follow-up with PCP. Discharge discussed with: patient - Time Spent with Patient Total time spent providing and/or coordinating discharge services: - Discharge Medications Prescriptions: Continue Cyanocobalamin (Vitamin B-12) [Vitamin B-12] 1,000 mcg SL DAILY Simvastatin [Zocor] 40 mg PO HS Furosemide [Lasix] 20 mg PO DAILY Aspirin 81 mg PO DAILY Loratadine [Claritin] 10 mg PO DAILY Ergocalciferol (VITAMIN D2) [Vitamin D2] 2,000 units PO DAILY Metoprolol Succinate [Toprol Xl] 25 mg PO DAILY Sertraline [Zoloft] 100 mg PO DAILY Trazodone HCl 100 mg PO HS PRN PRN Reason: Sleep Budesonide/Formoterol 80/4.5 [Symbicort 80/4.5] 2 puff IH BID Loratadine [Claritin] 10 mg PO DAILY Changed Omeprazole [PriLOSEC] 40 mg PO DAILY #60 cap Home Medications: Aspirin 81 mg PO DAILY 12/22/15 [History] Cyanocobalamin (Vitamin B-12) [Vitamin B-12] 1,000 mcg SL DAILY 12/22/15 [History] Furosemide [Lasix] 20 mg PO DAILY 12/22/15 [History] Simvastatin [Zocor] 40 mg PO HS 12/22/15 [History] Ergocalciferol (VITAMIN D2) [Vitamin D2] 2,000 units PO DAILY 03/04/17 [History] Loratadine [Claritin] 10 mg PO DAILY 03/04/17 [History] Budesonide/Formoterol 80/4.5 [Symbicort 80/4.5] 2 puff IH BID 01/03/19 [History] Loratadine [Claritin] 10 mg PO DAILY 01/03/19 [History] Metoprolol Succinate [Toprol Xl] 25 mg PO DAILY 01/03/19 [History] Sertraline [Zoloft] 100 mg PO DAILY 01/03/19 [History] Trazodone HCl 100 mg PO HS PRN 01/03/19 [History] Omeprazole [PriLOSEC] 40 mg PO DAILY #60 cap 01/05/19 [Rx] Allergies/Adverse Reactions: Allergy/AdvReac Type Severity Reaction Status Date / Time Amoxicillin Allergy Rash Verified 01/03/19 20:11 codeine Allergy Rash Verified 01/03/19 20:11 diphenhydramine Allergy Difficulty Verified 01/03/19 20:11 [From Benadryl] Breathing Date of admission: 01/03/19 21:01 Primary care physician: Edy Butler Discharging clinician: Hair Ortiz Anticipated date of discharge: 01/05/19 - Constitutional Vitals: Temp Pulse Resp BP Pulse Ox 97.4 F L 68 16 112/75 96 01/05/19 08:05 01/05/19 08:05 01/05/19 08:05 01/05/19 08:05 01/05/19 08:05 General appearance: Present: cooperative, A&O X 3, pleasant, no acute distress, answers questions appropriately Exam: General: pleasant, without distress Cardiovascualr: Regular rate and rhythm with no murmur, absent gallops or rubs, 1+ b/l pedal edema, radial pulses 2 out of 4 Lungs: Clear to auscultation bilaterally, not in respiratory distress Abdomen: Soft epigastric tenderness nondistended positive bowel sounds, absent hepatomegaly Skin: warm and dry, absent rash, absent open wounds and nodules MSK: absent clubbing, cyanosis, joints without swelling Neuro: Cranial nerves II through XII intact, UE and LE sensation equal bilaterally, UE and LEstrength 5/5, alert oriented 3, Heel to don intact, finger to nose intact, Gait intact, rhombergs sign negative, b/l plantar reflexes downwards Psych: good insight and judgment - Patient Status Disposition: Home, Self-Care Condition: Good Functional capacity at discharge: independent ambulation - Discharge Instructions Instructions: Chest Pain (DC), Diabetes Mellitus Type 2 in Adults (DC), Chronic Obstructive Pulmonary Disease (DC), Chronic Hypertension (DC) Follow Up With: Edy Butler [Primary Care Provider] - - Diet and Activity Activity: increase activity as tolerated Diet: advance to your usual diet <Aditi Bee - Last Filed: 01/05/19 13:05> Orders not resulted at time of discharge: Pending orders 01/03/19 17:42 EKG [ECG 12 lead ECG] [ECG] Stat 01/03/19 18:15 EKG [ECG 12 lead ECG] [ECG] Stat 01/03/19 19:40 EKG [ECG 12 lead ECG] [ECG] Stat 01/04/19 10:44 NM [place] perf SPECT multi [NM] Routine Date of Encounter: 01/05/19 Hospital course: Ms. Grissom is a 68 year old female - Time Spent with Patient Total time spent providing and/or coordinating discharge services: Date of admission: 01/03/19 21:01 Primary care physician: Edy Butler - Constitutional Vitals: Temp Pulse Resp BP Pulse Ox 97.4 F L 68 16 112/75 96 01/05/19 08:05 01/05/19 08:05 01/05/19 08:05 01/05/19 08:05 01/05/19 08:05 - Patient Status Overall status at discharge: patient is progressing back to baseline - Attending Attestation I examined this patient and my medical decision-making was reviewed with the Resident Physician Dr Ortiz. I agree with the documented findings, disposition and treatment plan as described except to the extent set forth below. Ms Grissom was observed for chest pain now determined to be non cardiac after negative echo and stress test. She is discharging to home with outpt pcp follow up recommended for gi work up. awake, pleasant, had "heart burn overnight" and some this morning, pain is also reporducible when she presses near sternum. no chest pressure, palpitations, sob, no abd pain, n/v, melena or hemetemesis. gen- awake, nad, appears stated age eyes- no conjunctival pallor cv- rrr, no m/r/g, no le edema lungs- ctabl, normal resp effort on room air abd- soft, nt, nd, + bs chest pain, unlikely cardiac given negative work up GERD hx Chronically elevated dimer- 500 this admit, no tachycardia, tachypnea or hypoxia to suggest cp from PE- fu with PCP -increase omeprazole, outpt pcp fu for egd HTN- stable, cont home BB + lasix further diagnoses and plan as noted by resident
--- NOTE | 2019-01-06 16:45 | Electrocardiograph Report ---
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
--- NOTE | 2019-01-06 16:47 | Electrocardiograph Report ---
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
--- NOTE | 2019-01-06 16:48 | Electrocardiograph Report ---
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
== END 2019-01-05 14:20 | disposition home or self-care (01) ==
LOC: EMEROOARM 17:40 → 3BNU 17:40 → SUATTDRO 21:01 → 3BNU 21:17
PROVIDERS: ADMIT Pediatrics; ATTEND Internal Medicine

== ENCOUNTER 2019-03-17 09:59 | Observation (INO) ==
[2019-03-17] MEDS ORDERED: Aspirin 81 MG TAB.CHEW PO ONE (10:05)
--- NOTE | 2019-03-17 10:05 | Emergency Department Note ---
Disposition Clinical Impression: Atypical chest pain COPD (chronic obstructive pulmonary disease) Qualifiers: COPD type: COPD with acute exacerbation Qualified Code(s): J44.1 - Chronic obstructive pulmonary disease with (acute) exacerbation Disposition: Admitted As Inpatient Condition: Good Time of Disposition: 11:34 General Adult HPI - General Stated complaint: LOUISE/CP Time Seen by Provider: 03/17/19 10:02 Nursing Notes Reviewed: Yes Vital Signs Reviewed: Yes - Related Data Home Medications Medication Instructions Recorded Confirmed Cyanocobalamin (Vitamin B-12) 1,000 mcg SL DAILY 12/22/15 03/17/19 [Vitamin B-12] Furosemide [Lasix] 20 mg PO BID 12/22/15 03/17/19 Simvastatin [Zocor] 40 mg PO HS 12/22/15 03/17/19 Ergocalciferol (VITAMIN D2) 2,000 units PO DAILY 03/04/17 03/17/19 [Vitamin D2] Loratadine [Claritin] 10 mg PO DAILY 03/04/17 03/17/19 Metoprolol Succinate [Toprol Xl] 25 mg PO DAILY 01/03/19 03/17/19 Sertraline [Zoloft] 100 mg PO DAILY 01/03/19 03/17/19 Trazodone HCl 100 mg PO HS PRN 01/03/19 03/17/19 Previous Rx's Medication Instructions Recorded Omeprazole [PriLOSEC] 40 mg PO DAILY #60 cap 01/05/19 Allergies Allergy/AdvReac Type Severity Reaction Status Date / Time Amoxicillin Allergy Rash Verified 01/03/19 20:11 codeine Allergy Rash Verified 01/03/19 20:11 diphenhydramine Allergy Difficulty Verified 01/03/19 20:11 [From Benadryl] Breathing Past Medical History - Past Medical History Medical history: Reports: asthma, COPD, DVT, GERD, hyperlipidemia, hypertension, TIA, other Surgical history: Reports: knee replacement Psychiatric history: Reports: anxiety, depression 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 history - Social History Smoking Status: Former smoker Smokeless Tobacco Status: No Alcohol use: Reports: none Drug use: Reports: none Course Vital Signs Temperature 98.1 F 03/17/19 10:00 Pulse Rate 71 03/17/19 10:00 Respiratory Rate 20 03/17/19 10:00 Blood Pressure 133/87 03/17/19 10:00 O2 Sat by Pulse Oximetry 97 03/17/19 10:00 Temperature 98.1 F 03/17/19 10:00 Pulse Rate 71 03/17/19 10:00 Respiratory Rate 15 03/17/19 11:55 Blood Pressure 101/74 03/17/19 11:55 O2 Sat by Pulse Oximetry 96 03/17/19 10:08 Oxygen Delivery Oxygen Delivery Room Air Medical Decision Making - MDM Narrative Medical decision making narrative: Chest X-Ray 03/17/19 10:03 IMPRESSION: No acute cardiopulmonary process identified. D/ / Ajit Dubon MD / Ajit Dubon MD Interpreting Provider: Ajit Dubon MD 1100 hrs.: Patient is stable at this time her in a bring her in for an ACS workup. She is in agreement with this plan. Waiting on hospitalist for call back. 1115 hrs.: Hospitalist as accepted patient to their service. - Lab Data Result diagrams: 03/17/19 10:11 03/17/19 10:11 Lab Results 03/17/19 03/17/19 03/17/19 Range/Units 10:11 10:11 10:11 WBC 7.2 (4.3-11.1) K/mcL RBC 4.49 (3.82-4.97) M/mcL Hgb 12.8 (11.5-15.4) g/dL Hct 38.2 (35.3-44.9) % MCV 85.1 (83.0-100.0) fL MCH 28.5 (28.0-33.3) pg MCHC 33.5 (31.6-35.5) g/dL RDW 13.5 (11.5-14.5) % Plt Count 312 (140-400) K/mcL MPV 9.4 (9.4-12.4) fL Immature Gran % 0.3 (0-4) % Seg Neutrophils % 63.6 % Lymphocytes % 25.0 % Monocytes % 9.0 % Eosinophils % 1.5 % Basophils % 0.6 % Neutrophils # 4.6 (1.6-8.9) K/mcL Lymphocytes # 1.8 (0.6-4.6) K/mcL Monocytes # 0.7 (0.0-1.3) K/mcL Eosinophils # 0.1 (0.0-0.6) K/mcL Basophils # 0.0 (0.0-0.2) K/mcL APTT 33.4 (26.0-36.0) Seconds Sodium 139 (136-145) mEq/L Potassium 2.9 L (3.5-5.1) mEq/L Chloride 100 (98-107) mEq/L Carbon Dioxide 26 (23-29) mEq/L BUN 13 (8-23) mg/dL Creatinine 1.02 (0.60-1.20) mg/dL Est GFR ( Amer) > 60 (> 60) Est GFR (Non-Af Amer) 54 L (> 60) BUN/Creatinine Ratio 13 (6-26) Glucose 125 H (70-105) mg/dL Calculated Osmolality 290 (280-300) Calcium 9.4 (8.6-10.3) mg/dL Troponin I < 0.03 (< 0.04) ng/mL Attestation Statement - Attestation Attestation: This documentation is done with the assistance of Dragon dictation. Despite efforts made to ensure accuracy, there may be inaccuracies in insulation extruder operator or spelling and typographical errors. I examined this patient and my medical decision-making was reviewed with the Resident Physician. I agree with the documented findings, disposition and treatment plan as described except to the extent set forth below. Patient was seen and evaluated by Dr. Venegas, I agree with their evaluation and management plan, I supervised care the patient's stay. Patient presents today with dyspnea. And chest discomfort started last evening. History of COPD but she is not on oxygen at home. Medics gave her oxygen and round she said she felt better. We will order a workup for ACS here. She also has a little bit of edema in her feet but no history of CHF in the past. She is in agreement with plan. I reviewed the residents documentation and agree with the residents assessment and plan of care. I have personally had face to face time with the patient. (Brief History, Brief Exam, and MDM) I personally supervised and was present for the santos/critical portions of the following procedures completed by the resident: EKG was interpreted by the resident under my supervision, I agree with their interpretation.
--- NOTE | 2019-03-17 10:08 | Emergency Department Note ---
Disposition Clinical Impression: Atypical chest pain COPD (chronic obstructive pulmonary disease) Qualifiers: COPD type: unspecified COPD Qualified Code(s): J44.9 - Chronic obstructive pulmonary disease, unspecified Disposition: Admitted As Inpatient Condition: Good Time of Disposition: 12:06 General Adult HPI - General Stated complaint: LOUISE/CP Time Seen by Provider: 03/17/19 10:02 Source: patient, EMS Mode of arrival: EMS Limitations: no limitations Nursing Notes Reviewed: Yes Vital Signs Reviewed: Yes - History of Present Illness HPI Narrative: Patient is a 68-year-old female that presents the emergency department with reports of chest pain and shortness of breath. Patient this began yesterday evening. Patient states that the pain is located in the center of her chest and radiates up into her neck. Patient reports that she is short of breath as well as having diaphoresis and nausea. Patient states that she also has some swelling in her lower extremities. Patient states that she has a history of hypertension hyperlipidemia is a borderline diabetic with a previous smoking history. Patient states that the pain has not gotten any better and is still having pain upon arrival here in the emergency department. Patient is on oxygen by EMS however states she does not wear any oxygen at home but feels that the oxygen did help her symptoms. Patient states she uses inhalers for her COPD and did get minimal relief from them this morning. - Related Data Home Medications Medication Instructions Recorded Confirmed Cyanocobalamin (Vitamin B-12) 1,000 mcg SL DAILY 12/22/15 01/03/19 [Vitamin B-12] Furosemide [Lasix] 20 mg PO DAILY 12/22/15 01/03/19 Simvastatin [Zocor] 40 mg PO HS 12/22/15 01/03/19 Ergocalciferol (VITAMIN D2) 2,000 units PO DAILY 03/04/17 01/03/19 [Vitamin D2] Loratadine [Claritin] 10 mg PO DAILY 03/04/17 01/03/19 Metoprolol Succinate [Toprol Xl] 25 mg PO DAILY 01/03/19 01/03/19 Sertraline [Zoloft] 100 mg PO DAILY 01/03/19 01/03/19 Trazodone HCl 100 mg PO HS PRN 01/03/19 01/03/19 Previous Rx's Medication Instructions Recorded Omeprazole [PriLOSEC] 40 mg PO DAILY #60 cap 01/05/19 Allergies Allergy/AdvReac Type Severity Reaction Status Date / Time Amoxicillin Allergy Rash Verified 01/03/19 20:11 codeine Allergy Rash Verified 01/03/19 20:11 diphenhydramine Allergy Difficulty Verified 01/03/19 20:11 [From Benadryl] Breathing All systems ED: reviewed and negative except as stated. Constitutional: Denies: fever Cardiovascular: Reports: chest pain Respiratory: Reports: dyspnea Gastrointestinal: Reports: nausea. 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 Absent: respiratory distress, wheezes - Cardiovascular Cardiovascular exam: Present: regular rate, normal rhythm, normal heart sounds, +S1, +S2 - Abdominal Exam Abdominal exam: Present: soft, Non-Tender, normal bowel sounds - Extremities Exam Extremities exam: Present: other (Trace to 1+ pitting edema.) - Neurological Exam Neurological exam: Present: alert, oriented X3 - Psychiatric Psychiatric exam: Present: normal affect, normal mood - Skin Skin exam: Present: warm, dry, intact Course Vital Signs Temperature 98.1 F 03/17/19 10:00 Pulse Rate 71 03/17/19 10:00 Respiratory Rate 20 03/17/19 10:00 Blood Pressure 133/87 03/17/19 10:00 O2 Sat by Pulse Oximetry 97 03/17/19 10:00 Temperature 98.1 F 03/17/19 10:00 Pulse Rate 71 03/17/19 10:00 Respiratory Rate 15 03/17/19 11:55 Blood Pressure 101/74 03/17/19 11:55 O2 Sat by Pulse Oximetry 96 03/17/19 10:08 Oxygen Delivery Oxygen Delivery Room Air Medical Decision Making - MDM Narrative Medical decision making narrative: Due the patient's and into the emergency department with reports of chest pain, shortness of breath, nausea and diaphoresis there is a concern for possible ACS. We will obtain basic laboratory testing, chest x-ray and EKG. Anticipate that the patient will require admission for ACS rule out. Patient's laboratory testing is relatively unremarkable other than a potassium of 2.9 which will be treated with 40 of oral potassium. Patient will be admitted to the hospital for further evaluation and management. Called and spoke with the admitting hospitalist Dr. Levine and she is except the patient to their service. Patient be admitted to the hospital at this time for further evaluation and management. - Medical Records Medical records reviewed: Yes I reviewed the patient's medical records. - Lab Data Lab results reviewed: Yes I reviewed the patient's lab results. Result diagrams: 03/17/19 10:11 03/17/19 10:11 Lab Results 03/17/19 03/17/19 03/17/19 Range/Units 10:11 10:11 10:11 WBC 7.2 (4.3-11.1) K/mcL RBC 4.49 (3.82-4.97) M/mcL Hgb 12.8 (11.5-15.4) g/dL Hct 38.2 (35.3-44.9) % MCV 85.1 (83.0-100.0) fL MCH 28.5 (28.0-33.3) pg MCHC 33.5 (31.6-35.5) g/dL RDW 13.5 (11.5-14.5) % Plt Count 312 (140-400) K/mcL MPV 9.4 (9.4-12.4) fL Immature Gran % 0.3 (0-4) % Seg Neutrophils % 63.6 % Lymphocytes % 25.0 % Monocytes % 9.0 % Eosinophils % 1.5 % Basophils % 0.6 % Neutrophils # 4.6 (1.6-8.9) K/mcL Lymphocytes # 1.8 (0.6-4.6) K/mcL Monocytes # 0.7 (0.0-1.3) K/mcL Eosinophils # 0.1 (0.0-0.6) K/mcL Basophils # 0.0 (0.0-0.2) K/mcL APTT 33.4 (26.0-36.0) Seconds Sodium 139 (136-145) mEq/L Potassium 2.9 L (3.5-5.1) mEq/L Chloride 100 (98-107) mEq/L Carbon Dioxide 26 (23-29) mEq/L BUN 13 (8-23) mg/dL Creatinine 1.02 (0.60-1.20) mg/dL Est GFR ( Amer) > 60 (> 60) Est GFR (Non-Af Amer) 54 L (> 60) BUN/Creatinine Ratio 13 (6-26) Glucose 125 H (70-105) mg/dL Calculated Osmolality 290 (280-300) Calcium 9.4 (8.6-10.3) mg/dL Troponin I < 0.03 (< 0.04) ng/mL - Radiology Data Radiology results reviewed: Yes I reviewed the patient's radiology results. Chest X-Ray 03/17/19 10:03 IMPRESSION: No acute cardiopulmonary process identified. D/ / Ajit Dubon MD / Ajit Dubon MD Interpreting Provider: Ajit Dubon MD - EKG Data EKG #1 EKG attestation: Yes I reviewed and interpreted this EKG. EKG results narrative: EKG shows a sinus rhythm at a rate of 73 beats from it, WI interval 142, QRS duration 89, QTC of 491. There is no evidence of STEMI on EKG. There is ST depression in V4 however this is compared to previous EKG on 01/03/19 and this is C depression was present at that time.
[2019-03-17] MEDS: Nitroglycerin 0.4 MG TAB.SUBL SL PRN ×2 (10:23→10:29)
[2019-03-17 10:25] LABS: Basophils % 0.6 %; Eosinophils # 0.1 K/mcL (0.0-0.6); Eosinophils % 1.5 %; Hematocrit 38.2 % (35.3-44.9); Hemoglobin 12.8 g/dL (11.5-15.4); Immature Granulocytes % 0.3 % (0-4); Lymphocytes # 1.8 K/mcL (0.6-4.6); Mean Corpuscular HGB Conc 33.5 g/dL (31.6-35.5); Mean Corpuscular Hemoglobin 28.5 pg (28.0-33.3); Mean Corpuscular Volume 85.1 fL (83.0-100.0); Mean Platelet Volume 9.4 fL (9.4-12.4); Monocytes # 0.7 K/mcL (0.0-1.3); Neutrophils # 4.6 K/mcL (1.6-8.9); Platelet Count 312 K/mcL (140-400); Red Blood Count 4.49 M/mcL (3.82-4.97); Red Cell Distribution Width 13.5 % (11.5-14.5); Segmented Neutrophils % 63.6 %; White Blood Count 7.2 K/mcL (4.3-11.1)
[2019-03-17 10:51] LABS: Troponin I < 0.03 ng/mL (< 0.04)
[2019-03-17 11:19] LABS: BUN/Creatinine Ratio 13 (6-26); Blood Urea Nitrogen 13 mg/dL (8-23); Calcium 9.4 mg/dL (8.6-10.3); Carbon Dioxide 26 mEq/L (23-29); Chloride 100 mEq/L (98-107); Glucose 125 mg/dL (70-105); Osmolality,Calculated 290 (280-300); Potassium 2.9 mEq/L (3.5-5.1); Sodium 139 mEq/L (136-145); eGFR For African Americans > 60 (> 60); eGFR For Non-African Americans 54 (> 60)
[2019-03-17] MEDS ORDERED: Potassium Chloride Elixir 20 MEQ/15 ML UDC PO ONE (11:21)
--- NOTE | 2019-03-17 13:02 | Internal Med History&Physical ---
Date of Encounter: 03/17/19 Time of Encounter: 13:02 Internal Medicine - H&P: HPI Chief complaint: chest pain History of present illness: Patient is a 68-year-old female with medical history of asthma, COPD, DVT, GERD, hyperlipidemia, hypertension, TIA, home presented to the ER with chest pain over her chest associated with nausea, diaphoresis, and difficulty breath ing. the baby was noted to no aggravating factor however it did improve was options and administration. The patient also reported swelling of her lower extremities the patient is stated that she used her inhaler at home however her symptoms did not improve. At the bedside of the patient's symptoms has been resolved, she stated that she has history of COPD but she is not on home oxygen. The patient felt that all her symptoms was much better with oxygen administration. An EKG was obtained and revealed no significant ST-T wave changes, cardiac enzymes were also obtained and first set was within normal limits the patient was admitted for further evaluation and management Past Med Surg Social Fam HX - Past Medical History Medical history: asthma, COPD, DVT, GERD, hyperlipidemia, hypertension, TIA, other Additional medical history: diverticulitis. hemorrhoids Psychiatric history: anxiety, depression - Past Surgical History Surgical History: knee replacement Additional surgical history: left knee replacement, partial hyster - Social History Smoking Status: Former smoker Smokeless Tobacco Status: No Alcohol use: none Drug use: none - Family History Mother Family Member Ethnicity: Non- Living Status: Hx Family Cardiac Disorders: Yes Hx Family Respiratory Disorders: No Hx Family Cancer: Yes Hx Family Neurologic Disorders: Yes (CVA) Father Living Status: Hx Family Cardiac Disorders: Yes Internal Medicine - H&P: Meds Cyanocobalamin (Vitamin B-12) [Vitamin B-12] 1,000 mcg SL DAILY 12/22/15 [History] Furosemide [Lasix] 20 mg PO BID 12/22/15 [History] Simvastatin [Zocor] 40 mg PO HS 12/22/15 [History] Ergocalciferol (VITAMIN D2) [Vitamin D2] 2,000 units PO DAILY 03/04/17 [History] Loratadine [Claritin] 10 mg PO DAILY 03/04/17 [History] Metoprolol Succinate [Toprol Xl] 25 mg PO DAILY 01/03/19 [History] Sertraline [Zoloft] 100 mg PO DAILY 01/03/19 [History] Trazodone HCl 100 mg PO HS PRN 01/03/19 [History] Omeprazole [PriLOSEC] 40 mg PO DAILY #60 cap 01/05/19 [Rx] Albuterol Sulfate [Ventolin Hfa] 2 puff IH Q6H PRN 03/17/19 [History] Aspirin 81 mg PO DAILY #30 tab.chew 03/19/19 [Rx] Allergy/AdvReac Type Severity Reaction Status Date / Time Amoxicillin Allergy Rash Verified 01/03/19 20:11 codeine Allergy Rash Verified 01/03/19 20:11 diphenhydramine Allergy Difficulty Verified 01/03/19 20:11 [From Benadryl] Breathing All Systems PM: A 10-system review of systems was performed and is negative for pertinent findings except as documented above in the HPI. - Constitutional Vitals: Temp Pulse Resp BP Pulse Ox 98.1 F 71 15 101/74 96 03/17/19 10:00 03/17/19 10:00 03/17/19 11:55 03/17/19 11:55 03/17/19 10:08 General appearance: Present: A&O X 3 Exam: ` - Head Head exam: Present: atraumatic, normocephalic - Neck Neck exam general surgery: Present: supple, trachea midline. Absent: lymphadenopathy - Respiratory Respiratory exam: Present: rhonchi. Absent: accessory muscle use, rales, wheezes - Cardiovascular Cardiovascular exam: Present: RRR, +S1, +S2. Absent: diastolic murmur, gallop, rubs, systolic murmur - GI/Abdominal GI/Abdominal exam: Present: normal bowel sounds, soft, no peritoneal signs. Absent: distended, tenderness Internal Med - H&P Results - Labs CBC & Chem 7: 03/18/19 01:54 03/18/19 01:54 Labs: Short CBC 03/17/19 Range/Units 10:11 WBC 7.2 (4.3-11.1) K/mcL Hgb 12.8 (11.5-15.4) g/dL Hct 38.2 (35.3-44.9) % Plt Count 312 (140-400) K/mcL Neutrophils # 4.6 (1.6-8.9) K/mcL BMP 03/17/19 10:11 Sodium 139 Potassium 2.9 L Chloride 100 Carbon Dioxide 26 BUN 13 Creatinine 1.02 Glucose 125 H Calcium 9.4 Cardiac Enzymes 03/17/19 Range/Units 10:11 Troponin I < 0.03 (< 0.04) ng/mL - Impressions ITS Impressions Chest X-Ray 03/17/19 10:03 IMPRESSION: No acute cardiopulmonary process identified. D/ / Ajit Dubon MD / Ajit Dubon MD Interpreting Provider: Ajit Dubon MD - Assessment and Plan (1) Atypical chest pain Status: Acute Assessment and plan: The patient was admitted for chest pain that appears to be a typical, no diaphoresis but associated with shortness of breath which could be attributed to her underlying COPD , EKG was no significant EKG changes and troponin first set was within normal limits. DD *Muskuloskeletal CP - myofascial strain, costochondritis *GERD *Esophageal spasm *Pericarditis - unlikely *Pneumonia - no infiltrate on CXR PLAN: - cardiac enzymes x 2 q 8 hr - EKG now and in AM - ASA - O2 by NC to keep SpO2 greater than 92% - UA - CBCD, BMP in AM - Fasting lipids - 2D Echo (2) COPD (chronic obstructive pulmonary disease) Status: Chronic Assessment and plan: The patient presentation might be due to her underlying COPD, he stated that her symptoms resolved with oxygen administration and she currently is not on home oxygen, might consider arranging for home oxygen at discharge, for now we will continue home inhalers. Qualifiers: COPD type: COPD with acute exacerbation Qualified Code(s): J44.1 - Chronic obstructive pulmonary disease with (acute) exacerbation (3) GERD (gastroesophageal reflux disease) Status: Acute Qualifiers: Esophagitis presence: without esophagitis Qualified Code(s): K21.9 - Gastro-esophageal reflux disease without esophagitis (4) Hypertension Status: Chronic Qualifiers: Hypertension type: essential hypertension Qualified Code(s): I10 - Essential (primary) hypertension (5) Diabetes Status: Acute Qualifiers: Diabetes mellitus type: type 2 Diabetes mellitus watermaster insulin use: without group home use Diabetes mellitus complication status: without complication Qualified Code(s): E11.9 - Type 2 diabetes mellitus without complications - Time Spent With Patient Total time spent is greater than 50% in coordination of care (as documented) at patient's floor/unit and/or counseling patient:
[2019-03-17] MEDS ORDERED: traZODone 50 MG TABLET PO PRN (13:39)
[2019-03-17] MEDS ORDERED: Acetaminophen 325 MG TABLET PO PRN (13:40)
[2019-03-17] MEDS ORDERED: Ondansetron 4 MG/2 ML VIAL IVP PRN (13:40)
[2019-03-17] MEDS ORDERED: *HR* HYDROcodone/Acet 5/325 mg TABLET PO PRN (13:40)
[2019-03-17] MEDS ORDERED: Naloxone 0.4 MG/ML INJ IVP PRN (13:40)
[2019-03-17] MEDS: Furosemide 20 MG TABLET PO SCH (16:34)
[2019-03-18 02:08] LABS: Basophils % 0.4 %; Eosinophils # 0.2 K/mcL (0.0-0.6); Eosinophils % 2.3 %; Hematocrit 36.3 % (35.3-44.9); Hemoglobin 12.1 g/dL (11.5-15.4); Immature Granulocytes % 0.2 % (0-4); Lymphocytes # 2.9 K/mcL (0.6-4.6); Lymphocytes % 35.9 %; Mean Corpuscular HGB Conc 33.3 g/dL (31.6-35.5); Mean Corpuscular Hemoglobin 28.8 pg (28.0-33.3); Mean Corpuscular Volume 86.4 fL (83.0-100.0); Mean Platelet Volume 9.6 fL (9.4-12.4); Monocytes # 0.9 K/mcL (0.0-1.3); Monocytes % 11.5 %; Neutrophils # 4.1 K/mcL (1.6-8.9); Platelet Count 286 K/mcL (140-400); Red Cell Distribution Width 13.8 % (11.5-14.5); Segmented Neutrophils % 49.7 %; White Blood Count 8.2 K/mcL (4.3-11.1)
[2019-03-18 02:18] LABS: INR 0.9; Prothrombin Time 10.6 Seconds (9.4-12.1)
[2019-03-18 02:21] LABS: Activated Partial Thrombo Time 31.8 Seconds (26.0-36.0)
[2019-03-18 02:28] LABS: Albumin/Globulin Ratio 1.6 (1.1-2.2); Bilirubin,Total 0.5 mg/dL (0.3-1.0); Calcium 8.9 mg/dL (8.6-10.3); Chol/HDL Ratio 4.3 (0-4.9); Globulin 2.5 g/dL (2.4-3.5); Magnesium 1.9 mg/dL (1.6-2.6); Phosphorous 4.1 mg/dL (2.7-4.5); Potassium 3.5 mEq/L (3.5-5.1); Total Protein 6.5 g/dL (6.4-8.9)
[2019-03-18] MEDS: Furosemide 20 MG TABLET PO SCH ×2 (06:26→18:16)
[2019-03-18] MEDS: Metoprolol XL (24 HR) Succ 25 MG TAB.ER.24H PO SCH (11:07)
[2019-03-18] MEDS: Loratadine 10 MG TABLET PO SCH (11:07)
[2019-03-18] MEDS: Cyanocobalamin (B-12) 1,000 MCG TABLET PO SCH (11:07)
[2019-03-18] MEDS: Cholecalciferol (D-3) 1,000 UNIT TABLET PO SCH (11:07)
--- NOTE | 2019-03-18 11:58 | Cardiology Consult Note ---
Date of Encounter: 03/18/19 Time of Encounter: 11:54 Assessment and Plan (1) Chest pain Current Visit: No Status: Resolved Presents with chest pain associated with nausea, diaphoresis, and difficulty breathing. Radiation to left shoulder and between shoulder blades. Reports worse with exertion, improves with rest. Troponin negative x 4. No ischemic ECG changes. Nuclear stress test 12/2018: Perfusion imaging negative for ischemia or infarct. Gated EF >70%. Limited TTE 12/2018 EF 60%. Will discuss with Dr. Esqueda regarding LHC. R/B/A discussed. Pt is agreeable. Qualifiers: Chest pain type: other chest pain Qualified Code(s): R07.89 - Other chest pain; R07.8 - Other chest pain Discussion w patient/family: The assessment and plan as outlined above was discussed with the patient and/or family members who expressed understanding and agreement. All questions were answered. Thank you for involving us in the care of your patient. Please call with any questions. I will discuss all the above with Dr. Esqueda and make changes as necessary. History of Present Illness Consult date: 03/18/19 Requesting physician: Lance Serrato Consult reason: chest pain Chief complaint: chest pain History of present illness: Ms. Grissom is a 68 year old female with PMH of asthma, COPD, DVT, GERD, HLD, HTN, TIA, that presented to the ER with chest pain associated with nausea, diaphoresis, and difficulty breathing. Radiation to left shoulder and between shoulder blades. Reports worse with exertion, improves with rest. Troponin ne gative x 4. Cardiology consulted for further recs. Prior CV testing: Nuclear stress test 12/2018: Perfusion imaging negative for ischemia or infarct. Gated EF >70%. Limited TTE 12/2018 EF 60%. Past Med Surg Social Fam HX - Past Medical History Medical history: asthma, COPD, DVT, GERD, hyperlipidemia, hypertension, TIA, other Additional medical history: diverticulitis. hemorrhoids Psychiatric history: anxiety, depression - Past Surgical History Surgical History: knee replacement Additional surgical history: left knee replacement, partial hyster - Social History Smoking Status: Former smoker Smokeless Tobacco Status: No Alcohol use: none Drug use: none - Family History Mother Family Member Ethnicity: Non- Living Status: Hx Family Cardiac Disorders: Yes Hx Family Respiratory Disorders: No Hx Family Cancer: Yes Hx Family Neurologic Disorders: Yes (CVA) Father Living Status: Hx Family Cardiac Disorders: Yes Medications and Allergies Cyanocobalamin (Vitamin B-12) [Vitamin B-12] 1,000 mcg SL DAILY 12/22/15 [History] Furosemide [Lasix] 20 mg PO BID 12/22/15 [History] Simvastatin [Zocor] 40 mg PO HS 12/22/15 [History] Ergocalciferol (VITAMIN D2) [Vitamin D2] 2,000 units PO DAILY 03/04/17 [History] Loratadine [Claritin] 10 mg PO DAILY 03/04/17 [History] Metoprolol Succinate [Toprol Xl] 25 mg PO DAILY 01/03/19 [History] Sertraline [Zoloft] 100 mg PO DAILY 01/03/19 [History] Trazodone HCl 100 mg PO HS PRN 01/03/19 [History] Omeprazole [PriLOSEC] 40 mg PO DAILY #60 cap 01/05/19 [Rx] Albuterol Sulfate [Ventolin Hfa] 2 puff IH Q6H PRN 03/17/19 [History] Allergy/AdvReac Type Severity Reaction Status Date / Time Amoxicillin Allergy Rash Verified 01/03/19 20:11 codeine Allergy Rash Verified 01/03/19 20:11 diphenhydramine Allergy Difficulty Verified 01/03/19 20:11 [From Benadryl] Breathing All Systems Review: The remainder of the systems were reviewed and are negative - Cardiovascular Cardiovascular: as per HPI, chest pain with exertion, diaphoresis, dyspnea on exertion, radiating jaw, neck or arm pain - Respiratory Respiratory: dyspnea - Gastrointestinal Gastrointestinal: nausea Physical Examination Vital Signs Temp Pulse Resp BP Pulse Ox 03/18/19 07:28 97.6 F 72 17 101/70 96 03/18/19 03:36 97.5 F L 81 16 102/64 96 03/17/19 23:09 98.5 F 69 16 95/57 94 03/17/19 19:17 98.3 F 75 14 114/72 95 03/17/19 15:45 98.8 F 77 19 100/63 95 03/17/19 13:29 98.5 F 68 17 113/76 97 Intake and Output 03/17/19 03/18/19 03/18/19 23:59 07:59 15:59 Other: Meal NPO Weight 76 kg Patient Weight 03/18/19 23:59 Weight 76 kg General: Conversant, No Apparent Distress HEENT: Atraumatic, Normocephaly, Mucus Membranes Moist Neck: No JVD, Normal carotid pulses Cardiac: Reg Rate and Rhythm, Normal S1 and S2, No Murmur Lungs: Normal Breath Sounds, No Wheeze, Rales, Rhonchi Neuro: Alert and responsive, No focal deficits noted Abdomen: Soft, Non-Tender Skin: No rashes noted on visualized skin Musculoskeletal: No Chest Wall Tenderness Extremities: No Clubbing, No Cyanosis, No Edema, Normal Pulses Results 03/18/19 01:54 03/18/19 01:54 Lab Results 03/17/19 03/17/19 03/18/19 15:57 21:43 01:54 WBC Hgb Hct Plt Count INR APTT Sodium Potassium Chloride Carbon Dioxide BUN Creatinine Glucose Calcium Magnesium Total Bilirubin AST ALT Alkaline Phosphatase Troponin I < 0.03 < 0.03 < 0.03 03/18/19 03/18/19 03/18/19 01:54 01:54 01:54 WBC 8.2 Hgb 12.1 Hct 36.3 Plt Count 286 INR 0.9 APTT 31.8 Sodium 140 Potassium 3.5 Chloride 103 Carbon Dioxide 31 H BUN 15 Creatinine 1.15 Glucose 100 Calcium 8.9 Magnesium 1.9 Total Bilirubin 0.5 AST 18 ALT 13 Alkaline Phosphatase 69 Troponin I Short CBC 03/18/19 Range/Units 01:54 WBC 8.2 (4.3-11.1) K/mcL Hgb 12.1 (11.5-15.4) g/dL Hct 36.3 (35.3-44.9) % Plt Count 286 (140-400) K/mcL Neutrophils # 4.1 (1.6-8.9) K/mcL BMP 03/18/19 Range/Units 01:54 Sodium 140 (136-145) mEq/L Potassium 3.5 (3.5-5.1) mEq/L Chloride 103 (98-107) mEq/L Carbon Dioxide 31 H (23-29) mEq/L BUN 15 (8-23) mg/dL Creatinine 1.15 (0.60-1.20) mg/dL Glucose 100 (70-105) mg/dL Calcium 8.9 (8.6-10.3) mg/dL Cardiac Enzymes 03/18/19 03/17/19 03/17/19 Range/Units 01:54 21:43 15:57 Troponin I < 0.03 < 0.03 < 0.03 (< 0.04) ng/mL Liver Function 03/18/19 Range/Units 01:54 Total Bilirubin 0.5 (0.3-1.0) mg/dL AST 18 (13-39) Units/L ALT 13 (7-52) Units/L Alkaline Phosphatase 69 (34-104) Units/L Albumin 4.0 (3.5-5.7) g/dL Active Medications Acetaminophen (Tylenol) 650 mg PO Q6HR PRN PRN Reason: Mild Pain/Fever Stop: 09/16/19 13:41 Hydrocodone Bitart/Acetaminophen ([place] 5-325 Mg) 1 tab PO Q6HR PRN PRN Reason: Moderate Pain Stop: 09/16/19 13:41 Cyanocobalamin (Vitamin B12) 1,000 mcg PO DAILY [facility] Stop: 09/17/19 09:01 Last Admin: 03/18/19 11:07 Dose: 1,000 mcg Documented by: Furosemide (Lasix) 20 mg PO BIDDIURETIC [facility] Stop: 09/16/19 17:01 Last Admin: 03/18/19 06:26 Dose: 20 mg Documented by: Loratadine (Claritin) 10 mg PO DAILY [facility]; Protocol Stop: 09/17/19 09:01 Last Admin: 03/18/19 11:07 Dose: 10 mg Documented by: Metoprolol Succinate (Toprol Xl) 25 mg PO DAILY [facility] Stop: 09/17/19 09:01 Last Admin: 03/18/19 11:07 Dose: 25 mg Documented by: Naloxone HCl (Narcan) 0.4 mg IVP Q2MPRN PRN PRN Reason: SEE COMMENTS Stop: 09/16/19 13:41 Nitroglycerin (Nitroglycerin) 0.4 mg SL Q5MPRN PRN PRN Reason: Chest Pain Stop: 09/16/19 10:06 Last Admin: 03/17/19 10:29 Dose: 0.4 mg Documented by: Omeprazole (Prilosec) 40 mg PO DAILY@0630 [facility]; Protocol Stop: 09/17/19 06:31 Last Admin: 03/18/19 06:26 Dose: 40 mg Documented by: Ondansetron HCl (Zofran) 4 mg IVP Q8HR PRN PRN Reason: Nausea And Vomiting Stop: 09/16/19 13:41 Sertraline HCl (Zoloft) 100 mg PO DAILY [facility] Stop: 09/17/19 09:01 Last Admin: 03/18/19 11:07 Dose: 100 mg Documented by: Simvastatin (Zocor) 40 mg PO HS [facility]; Protocol Stop: 09/16/19 21:01 Last Admin: 03/17/19 22:43 Dose: 40 mg Documented by: Trazodone HCl (Trazodone) 100 mg PO HS PRN PRN Reason: Sleep Vitamin D (Vitamin D) 1,000 unit PO DAILY [facility] Stop: 09/17/19 09:01 Last Admin: 03/18/19 11:07 Dose: 1,000 unit Documented by: - Imaging and Cardiology Stress Test: report reviewed Echo: report reviewed - EKG Interpretation EKG results cardiology: personally reviewed (SR), other (12 hr tele AVG HR 69, SR, no significant pauses or arrhythmias noted.) Consult Discharge Plan - Plan Referrals: Edy Butler [Primary Care Provider] -
--- NOTE | 2019-03-18 13:44 | Electrocardiograph Report ---
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
--- NOTE | 2019-03-18 14:20 | Internal Med Progress Note ---
Hospitalist Progress Note - Encounter Date of Encounter: 03/18/19 Time of Encounter: 09:45 - Subjective Interval History: Pt was seen and examined at bed side She denied any active CP now. She did have CP y/d located left chest wall and sub sternal region, developed at resy and resolved with SL Nitro - Exam Vitals: Temp Pulse Resp BP Pulse Ox 97.6 F 72 17 101/70 96 03/18/19 07:28 03/18/19 07:28 03/18/19 07:28 03/18/19 07:28 03/18/19 07:28 Exam: Gen: Alert, awake, Oriented to time,place and person Chest: Diminished breath sounds B/L, No wheezing, No crackles, No rales Heart: S1S2+ RRR No murmurs Abd: Soft, NT, BS +, No organomegaly Ext: No edema, pulses are palpable, No calf tenderness Neuro : No acute focal neuro deficits noticed Skin: No rash. - Assessment and Plan (1) Chest pain Current Visit: No Status: Acute Assessment and Plan: h her serial troponin came back as negative no acute ischemic changes noticed on EKG she did have normal nuclear stress test in December 2018 Since she is high risk and her CP seems to be typical angina equivalent, consulted cardiology for further eval she is scheduled for LHC in AM Cont ASA, statin and Metoprolol (2) Hypertension Current Visit: No Status: Chronic Assessment and Plan: Stable BP continue home meds (3) Diabetes Current Visit: No Status: Acute Assessment and Plan: Diet controlled HbA1C 5.8 from 05/04 no need of insulin now cont close monitoring (4) COPD (chronic obstructive pulmonary disease) Current Visit: Yes Status: Chronic Assessment and Plan: Not in exacerbation resumed home INH regimen (5) GERD (gastroesophageal reflux disease) Current Visit: No Status: Acute Assessment and Plan: on PPI - Time Spent with Patient Total time spent is greater than 50% in coordination of care (as documented) at patient's floor/unit and/or counseling patient: Internal Medicine: Result - Labs CBC & Chem 7: 03/18/19 01:54 03/18/19 01:54 Labs: Short CBC 03/18/19 Range/Units 01:54 WBC 8.2 (4.3-11.1) K/mcL Hgb 12.1 (11.5-15.4) g/dL Hct 36.3 (35.3-44.9) % Plt Count 286 (140-400) K/mcL Neutrophils # 4.1 (1.6-8.9) K/mcL BMP 03/18/19 01:54 Sodium 140 Potassium 3.5 Chloride 103 Carbon Dioxide 31 H BUN 15 Creatinine 1.15 Glucose 100 Calcium 8.9 Cardiac Enzymes 03/17/19 03/17/19 03/18/19 Range/Units 15:57 21:43 01:54 Troponin I < 0.03 < 0.03 < 0.03 (< 0.04) ng/mL Liver Function 03/18/19 Range/Units 01:54 Total Bilirubin 0.5 (0.3-1.0) mg/dL AST 18 (13-39) Units/L ALT 13 (7-52) Units/L Alkaline Phosphatase 69 (34-104) Units/L Albumin 4.0 (3.5-5.7) g/dL - ABG Interpretation ABG results: PT/INR, D-dimer PT 10.6 Seconds (9.4-12.1) 03/18/19 01:54 - Impressions Impressions Echocardiogram 03/18/19 05:32 Impressions: LVEF 60-65%. Normal LV chamber size, wall thickness and function. Mildly dilated right ventricular with normal systolic function. No significant valvular dysfunction. No pulmonary hypertension. Left Ventricular Wall Motion: Rest Echo Findings All wall segments showed normal motion. Findings: Study Quality * Technically adequate exam. ECG Findings * Normal sinus rhythm. Left Ventricle * LVEF 60-65%. * Normal LV chamber size, wall thickness and systolic function. * Normal left ventricular diastolic function. Right Ventricle * Mildly dilated right ventricular with normal systolic function. Left Atrium * Normal left atrial size. Right Atrium * Normal right atrial size. Interatrial Septum * Interatrial septum not well evaluated. * No evidence of PFO by color Doppler. Aortic Valve * Trileaflet aortic valve with normal function. * No aortic stenosis. * No aortic regurgitation. Mitral Valve * Normal mitral valve structure. * No mitral stenosis. * Trace mitral regurgitation. Tricuspid Valve * Normal tricuspid valve structure. * No tricuspid stenosis. * Trace tricuspid regurgitation. * Estimated RVSP is 32 mmHg. * Estimated RA pressure is 3 mmHg. * No pulmonary hypertension. Pulmonic Valve * Pulmonic valve is not well visualized. * No pulmonic stenosis. * No pulmonic regurgitation. Aorta * Normally sized aortic root. Pericardium * The pericardium appears normal. IVC * The IVC is not dilated. * > 50% respiratory change Consult Discharge Plan - Plan Referrals: Edy Butler [Primary Care Provider] - (1) Chest pain Qualifiers: Chest pain type: other chest pain Qualified Code(s): R07.89 - Other chest pain; R07.8 - Other chest pain (2) Hypertension Qualifiers: Hypertension type: essential hypertension Qualified Code(s): I10 - Essential (primary) hypertension (3) Diabetes Qualifiers: Diabetes mellitus type: type 2 Diabetes mellitus meterman insulin use: [facility] meterman use Diabetes mellitus complication status: without complication Qualified Code(s): E11.9 - Type 2 diabetes mellitus without complications (4) COPD (chronic obstructive pulmonary disease) Qualifiers: COPD type: COPD with acute exacerbation Qualified Code(s): J44.1 - Chronic o bstructive pulmonary disease with (acute) exacerbation (5) GERD (gastroesophageal reflux disease) Qualifiers: Esophagitis presence: without esophagitis Qualified Code(s): K21.9 - Gastro- esophageal reflux disease without esophagitis
[2019-03-19] MEDS: Cyanocobalamin (B-12) 1,000 MCG TABLET PO SCH (07:36)
[2019-03-19] MEDS: Cholecalciferol (D-3) 1,000 UNIT TABLET PO SCH (07:36)
[2019-03-19] MEDS: Furosemide 20 MG TABLET PO SCH (07:36)
[2019-03-19] MEDS: Loratadine 10 MG TABLET PO SCH (07:36)
[2019-03-19] MEDS ORDERED: Aspirin 81 MG TAB.CHEW PO SCH (09:00)
[2019-03-19] MEDS: Metoprolol XL (24 HR) Succ 25 MG TAB.ER.24H PO SCH (10:38)
[2019-03-19] MEDS ORDERED: 0.9 % Sodium Chloride 1,000 ML ONE ×2 (12:49→13:38)
[2019-03-19] MEDS ORDERED: *HR* Heparin 10,000 UNIT/10 ML VIAL ONE (12:50)
[2019-03-19] MEDS ORDERED: Heparin 1,000 UNITS/500 mL 500 ML ONE (12:50)
[2019-03-19] MEDS ORDERED: Nitroglycerin 1,000 MCG/10 ML VIAL IV ONE (12:50)
[2019-03-19] MEDS ORDERED: ISOVUE-370 200 ML INFUS..BTL ONE (12:50)
[2019-03-19] MEDS ORDERED: *HR* Midazolam HCl 2 MG/2 ML VIAL ONE (13:09)
[2019-03-19] MEDS ORDERED: *HR* FentaNYL (PF) 100 MCG/2 ML VIAL ONE (13:09)
--- NOTE | 2019-03-19 13:16 | Pre-Sedation Evaluation ---
Pre-sedation evaluation - Pre-sedation checklist Date of procedure: 03/19/19 Procedure: [facility] Recent Vitals: Last Vital Signs Temp 98.2 F 03/19/19 10:31 Pulse 71 03/19/19 10:31 Resp 16 03/19/19 10:31 BP 101/61 03/19/19 10:31 Pulse Ox 96 03/19/19 10:31 Previous reaction to sedatives/anesthetics: No Dietary Status: NPO after Midnight Dentition: dentures removed ASA Classification *see protocol: CLASS II-Mild systemic disease Plan of Care: Pt appropriate candidate for procedure/moderate/conscious sedation, Risks/benefits of procedure/sedation discussed w/ patient/family Cardiac Registry (Cardio Only) - Functional Capacity Functional Capacity: >=4 METS with symptoms - Clincal Frailty Scale Clinical Frailty Scale: Managing Well
--- NOTE | 2019-03-19 13:42 | Invasive Diagnostic Lab Proc ---
Name: Dayana Grissom Date of Study: 03/19/2019 Date: 1950 Ht: 59.8in Medical Record#: [id number] Age: 68 Wt: 169.76lb Gender: Female BSA: 1.74 Order #: [id number] BMI: 33.33 Physicians Procedure Physician: Alejandro Steele MD, [facility] Referring MD: Referring MD: Staff Name Position Time In Sites, Adenike RT (R) Monitor 01:11 PM NestorAdenike RT (R) Scrub 01:11 PM Chio Posada RT (R) Scrub 01:11 PM Gracia Norton RN Wharf Builder 01:11 PM Nam Arce RN Nurse 01:33 PM Indications Indication Unstable Angina Procedures Performed Procedure L HRT ARTERY/VENTRICLE ANGIO Pre-Procedure Checklist Informed consent is complete signed and on chart. H&P is on chart. ID band is on and ID verified with patient. Patient NPO for procedure The procedure was described for the patient and questions were answered. Blood Pressure: 101/61 ECG is on chart. Plan of Care Patient will tolerate the procedure without complications. Adequate level of comfort will be maintained. Hemodynamics will remain stable Patient will recover from procedure without complications. Respiratory function will be maintained. Cardiac rhythm will remain stable. Patient temperature will be maintained. Patient and/or family have verbalized understanding of the procedure. Patient Education Chief Complaint/Reason for Test: Cardiac Cath Developmental Category: Geriatric (65+ years) Developmentally Appropriate for Age: Yes Learning Barriers: None Education Needs: Procedure Education Method: Verbal Information Taught: Cardiac Cath Educational Evaluation: Able to repeat information Intravenous Access Time IV Size Location DC'd Fluid/Drip Rate Units RN 20g 1 09/20" Patent On Arrival Rt Antecubital 0.9NaCl Allergies diphenhydramine codeine Amoxicillin Vital Signs Time BP (mmHg) HR (bpm) O2 Sat. RR (bpm) LOC 01:12 PM / % 5 = Fully awake and oriented or at pre-proc level 01:11 PM 136 / 73 74 99 % 13 01:16 PM 110 / 63 76 94 % 34 01:21 PM 105 / 61 73 92 % 44 01:26 PM 106 / 60 73 93 % 15 Procedural Medications Time Medication Dose Units Method Given By 01:14 PM Versed 2 mg Intravenous Gracia Norton RN 01:14 PM Fentanyl 25 mcg Intravenous Deck, Gracia RN 01:19 PM Lidocaine 2% 20 ml Subcutaneous Alejandro Steele MD, FACC 01:14 AM Oxygen 2 L/min nasal cannula Gracia Norton RN Sai Score Preprocedure Postprocedure Activity 2- Moves 4 extremities sustained head lift Activity 2- Moves 4 extremities sustained head lift Circulation 2- SBP +/= 20 points of pre-anesthetic level Circulation 2- SBP +/= 20 points of pre-anesthetic level Consciousness 2- Awake and alert oriented x 3 Consciousness 2- Awake and alert oriented x 3 O2 Saturation 2- Able to maintain O2 satruation of 92% on room air O2 Saturation 2- Able to maintain O2 satruation of 92% on room air Respiratory 2- Able to deep breathe and cough well Respiratory 2- Able to deep breathe and cough well Total Score 10 Total Score 10 Contrast Agent: Isovue Diagnostic Contrast: 40 ml Total Contrast: 40 ml Fluoro Dose: 9 mGy Procedure Log Time Note Enter By 01:10 PM Vitals capture started with the following parameters, Patient=Adult, Interval=5 min, Initial Blbnopqf=210 mmHg, Deflation Rate=3 mmHg, Cuff placed on Right Arm 01:11 PM CathStat 01:11 PM Pt arrived to slabber light 2 at 13:11 oparker :11 PM Adenike Shannon RT (R) Position: Monitor Time in: 13: oparker : PM Adenike Baez RT (R) Position: Scrub Time in: 13:11 oparker :11 PM Chio Posada RT (R) Position: Scrub [facility]: [facility] Gracia Norton RN Position: Wharf Builder Time in: 13:11 oparker :11 PM Patient charges- Angio tray pack, Navilyst 3mm J, Pulse Oximetry and ACIST tubing and transducer oparker :11 PM Physician arrived 13:11 oparker : PM Alejandra completed oparker :11 PM Sign in performed according to hospital policy. Informed consent was obtained. oparker 01:11 PM Procedure start 13:11 oparker :11 PM HR=74 bpm, MKOI=868/73 mmhg, SpO2=99.0 %, Resp=13 B/min 01:12 PM Hair removed from procedure site in holding area using clippers. Bilateral groin prepped with Chloraprep by Adenike Baez ([place]), then patient was draped. Skin intact. oparker 01:12 PM Time: 13:12 Patient comfortable and pain free: Yes oparker 01:12 PM Time: 13:12LOC: 5 = Fully awake and oriented or at pre-proc level oparker 01:12 PM Clinical Presentation: Unstable angina oparker :14 PM Time: 13:14 Versed 2 mg Intravenous Given by rGacia Norton RN tsites :14 PM Time: 13:14 Fentanyl 25 mcg Intravenous Given by Gracia Norton RN tsites :14 PM Recorded ECG: HR=74 Condition=Condition 1 01:14 PM Time: 13:14 Oxygen on at 2 L/min per nasal cannula by Gracia Norton RN tsites :16 PM HR=76 bpm, VBTY=220/63 mmhg, SpO2=94.0 %, Resp=34 B/min 01:19 PM Time out was performed according to hospital policy. Conscious sedation and anesthesia was achieved (see medication log with in this report above) tsites :20 PM Time: 13:19 20 ml Lidocaine 2% to right groin Subcutaneous Given by Alejandro Steele MD, [facility] tsites :20 PM Unsuccessful access attempt # 1 into the right Femoral artery. Manual pressure applied to achieve hemostasis.. tsites 01:21 PM Access obtained by percutaneous puncture. 5Fr 10cm Terumo [place] sheath placed in right Femoral artery. [id number] tsites 01:21 PM HR=73 bpm, NRAP=346/61 mmhg, SpO2=92.0 %, Resp=44 B/min 01:22 PM 5Fr FL 4 catheter inserted over the wire DN tsites 01:22 PM 0.035 145cm Navilyst 3mmJ wire [id number] tsites :22 PM LCA angiography performed in multiple views. tsites :23 PM Recorded Pressure: Ao, HR=72, Condition=Condition 1 (Aorta) Ao 104/74/88 01:24 PM wire reinserted catheter removed tsites :24 PM 5Fr FR 4 catheter inserted over the wire DN tsites :24 PM RCA angiography performed in multiple views. tsites :25 PM Recorded Pressure: Ao, HR=73, Condition=Condition 1 (Aorta) Ao 70/-3/29 01:26 PM wire reinserted catheter removed tsites : PM 5Fr Pigtail catheter inserted over the wire [facility] tsites :26 PM Catheter crossed the aortic valve and was selectively placed in the left ventricle. Pressures recorded on pullback for left heart catheterization. tsites 01:26 PM HR=73 bpm, HYKF=272/60 mmhg, SpO2=93.0 %, Resp=15 B/min 01:27 PM Bolus angiogram of left Ventricle complete: 10 ml/sec for a total of 20 mls tsites 01:27 PM Recorded Pressure: LV, HR=74, Condition=Condition 1 (Left Ventricle) LV 101/2/16 01:27 PM Recorded Pressure: LV, Ao, HR=75, Condition=Condition 1 (Left Ventricle) LV 121/4/15, (Aorta) Ao 116/70/90 01:28 PM wire reinserted catheter removed tsites :28 PM Bolus angiogram of right Femoral complete: 4 ml/sec for a total of 7 mls tsites :28 PM Coronary Dominance: right tsites 01:28 PM Procedure completed at 13:28 03/19/2019 tsites :28 PM Did you address JOHN flow and Dominance? YesCoronary Dominance: right tsites 01:31 PM Sign out completed: Radiation Dose 56 mGy, 8.71 Gy/cm2 Fluoro Time: 1.0 Isovue 370 - 200ml contrast 39.7 ml given by Alejandro Steele MD, [facility]. Complications: None. 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 Sedation minutes 16. Cardiac Rehab Consult needed: No. Confirmed administered medications: Yes tsites 01:32 PM Isovue 370 - 200ml,1 Bottle(s) used. tsites 01:32 PM Arterial sheath pulled, Mynx closure device used and was Successful [id number] S/N. tsites 01:32 PM Estimated Blood Loss: minimal tsites 01:32 PM Post ECG NSR tsites 01:32 PM Post Blood Pressure 104/59 tsites 01:32 PM 13:32 Post Pulses Bilateral DP & PT 1+ tsites 01:32 PM Information taught Cardiac Cath and Mynx tsites 01:33 PM Nam Arce RN Position: Nurse Time in: 13:33 tsites 01:33 PM Education needs Procedure and Plan of Care tsites 01:33 PM Learning barriers :None tsites 01:33 PM Education Methods Verbal tsites 01:33 PM Education evaluation Able to repeat information tsites 01:33 PM Site status No bleeding/ No Hematoma - Rt Groin as reported by Chio Posada RT (R) at 13:33 tsites 01:33 PM Opsite applied tsites 01:33 PM Delay to floor No tsites 01:33 PM Patient out of room: 13:33 tsites 01:33 PM no family at this time tsites 01:35 PM Report given to nestor SPENCER Pt taken to 3B Room #37. 13:33 tsites Complications Complication None Hemodynamics Pressures Site Systolic/A Wave Diastolic/V Wave Mean AO 104 74 88 AO 70 -3 29 LV 101 2 16 LV 121 4 15 AO 116 70 90 Post Procedure Information Blood Pressure: 104/59 mmHg Rhythm: NSR Post procedural instructions were given Closure Device Time Device Success/Fail 03/19/2019 1:35:00 PM MynxGrip Successful Site Checks Time Location Status Staff Sheath In? Note 01:33 PM Rt Groin No bleeding/ No Hematoma Chio Posada RT (R) Pulses Time Site Pre-Procedure Post-Procedure Note Bilateral DP & PT 2+ 1:32:00 PM Bilateral DP & PT 1+ Updated by Adenike Shannon RT (R) on 03/19/2019 1:37:12 PM RT Mariana electronically signed on 03/19/2019 1:37:51 PM with status of Final
--- NOTE | 2019-03-19 13:42 | Event Note ---
Date of Encounter: 03/19/19 Time of Encounter: 13:41 - Cardiology Event Note LHC normal. No intervention. Final report pending. Cardiology signing off. Reconsult PRN.
--- NOTE | 2019-03-19 14:49 | Discharge Summary ---
- NOTES TO OUTPATIENT PROVIDER Notes to Outpatient Provider: f/u with PCP in one week. Orders not resulted at time of discharge: Pending orders 03/18/19 06:00 ECG 12 lead ECG [ECG] AM 0600 03/18/19 12:29 CL Cardiac Catheterization [CL] Routine Date of Encounter: 03/19/19 Time of Encounter: 14:45 - Discharge Diagnosis (1) Chest pain Priority: Primary Status: Acute Qualifiers: Chest pain type: other chest pain Qualified Code(s): R07.89 - Other chest pain; R07.8 - Other chest pain (2) Hypertension Priority: Secondary Status: Chronic Qualifiers: Hypertension type: essential hypertension Qualified Code(s): I10 - Essential (primary) hypertension (3) Diabetes Priority: Secondary Status: Acute Qualifiers: Diabetes mellitus type: type 2 Diabetes mellitus long winder tender insulin use: without long winder tender use Diabetes mellitus complication status: without complication Qualified Code(s): E11.9 - Type 2 diabetes mellitus without complications (4) COPD (chronic obstructive pulmonary disease) Priority: Secondary Status: Chronic Qualifiers: COPD type: COPD with acute exacerbation Qualified Code(s): J44.1 - Chronic obstructive pulmonary disease with (acute) exacerbation (5) GERD (gastroesophageal reflux disease) Priority: Secondary Status: Acute Qualifiers: Esophagitis presence: without esophagitis Qualified Code(s): K21.9 - Gastro-esophageal reflux disease without esophagitis Hospital course: Ms. Grissom is a 68 year old female with known past medical history of asthma, COPD, DVT, GERD, hyperlipidemia, hypertension and TIA pt presented to the ER with chest pain associated with nausea, diaphoresis, and difficulty breathing. She was admitted in the hospital and placed her on secured entrance monitor. Her serial troponin came back as negative. Her EKG did not show any acute ischemic changes. She did have normal stress test in December 2018. Since her current CP seems to be angina equivalent, she was evaluated by cardiology. She did go for [facility] which came back normal study. So will d/c her home in stable condition today. - Time Spent with Patient Total time spent providing and/or coordinating discharge services: - Discharge Medications Prescriptions: New Aspirin 81 mg PO DAILY #30 tab.chew Continued Cyanocobalamin (Vitamin B-12) [Vitamin B-12] 1,000 mcg SL DAILY Simvastatin [Zocor] 40 mg PO HS Furosemide [Lasix] 20 mg PO BID Loratadine [Claritin] 10 mg PO DAILY Ergocalciferol (VITAMIN D2) [Vitamin D2] 2,000 units PO DAILY Metoprolol Succinate [Toprol Xl] 25 mg PO DAILY Sertraline [Zoloft] 100 mg PO DAILY Trazodone HCl 100 mg PO HS PRN PRN Reason: Sleep Omeprazole [PriLOSEC] 40 mg PO DAILY #60 cap Albuterol Sulfate [Ventolin Hfa] 2 puff IH Q6H PRN PRN Reason: Shortness Of Breath Home Medications: Cyanocobalamin (Vitamin B-12) [Vitamin B-12] 1,000 mcg SL DAILY 12/22/15 [History] Furosemide [Lasix] 20 mg PO BID 12/22/15 [History] Simvastatin [Zocor] 40 mg PO HS 12/22/15 [History] Ergocalciferol (VITAMIN D2) [Vitamin D2] 2,000 units PO DAILY 03/04/17 [History] Loratadine [Claritin] 10 mg PO DAILY 03/04/17 [History] Metoprolol Succinate [Toprol Xl] 25 mg PO DAILY 01/03/19 [History] Sertraline [Zoloft] 100 mg PO DAILY 01/03/19 [History] Trazodone HCl 100 mg PO HS PRN 01/03/19 [History] Omeprazole [PriLOSEC] 40 mg PO DAILY #60 cap 01/05/19 [Rx] Albuterol Sulfate [Ventolin Hfa] 2 puff IH Q6H PRN 03/17/19 [History] Aspirin 81 mg PO DAILY #30 tab.chew 03/19/19 [Rx] Allergies/Adverse Reactions: Allergy/AdvReac Type Severity Reaction Status Date / Time Amoxicillin Allergy Rash Verified 01/03/19 20:11 codeine Allergy Rash Verified 01/03/19 20:11 diphenhydramine Allergy Difficulty Verified 01/03/19 20:11 [From Benadryl] Breathing Date of admission: 03/17/19 11:42 Primary care physician: Edy Butler Consults: 03/18/19 08:40 Consult to Nurse Navigator [CONS] Routine Comment: COPD 03/18/19 10:14 Consult to Cardiology [CONS] Routine Comment: Consulting Provider: Cardiology [place] Reason for Consult: chest pain Time Notified: 10:15 Call Completed: Yes - Constitutional Vitals: Temp Pulse Resp BP Pulse Ox 98.1 F 70 14 118/80 97 03/19/19 13:50 03/19/19 14:34 03/19/19 14:34 03/19/19 14:34 03/19/19 14:34 General appearance: Present: A&O X 3, no acute distress, answers questions appropriately Exam: Gen: Alert, awake, Oriented to time,place and person Chest: Diminished breath sounds B/L, No wheezing, No crackles, No rales Heart: S1S2+ RRR No murmurs Abd: Soft, NT, BS +, No organomegaly Ext: No edema, pulses are palpable, No calf tenderness Neuro : No acute focal neuro deficits noticed Skin: No rash. - Patient Status Disposition: Home, Self-Care Condition: Good Overall status at discharge: patient is back to baseline - Discharge Instructions Follow Up With: Edy Butler [Primary Care Provider] - 03/27/19 9:00 am Forms: ED Satisfaction Letter - Diet and Activity Activity: increase activity as tolerated Diet: low salt diet
[2019-03-19 16:56] VITALS: BP 121/75
== END 2019-03-19 17:30 | disposition home or self-care (01) ==
LOC: EMEROOARM 09:59 → 3BNU 09:59 → SUATTDRO 11:42 → 3BNU 12:40
PROVIDERS: ADMIT Internal Medicine Nephrology; ATTEND Family Medicine

== ENCOUNTER 2019-04-04 07:20 | Observation (INO) ==
[2019-04-04] MEDS ORDERED: GI Cocktail 40 ML EACH PO ONE (07:27)
--- NOTE | 2019-04-04 07:32 | Emergency Department Note ---
Disposition Clinical Impression: Chest pain Qualifiers: Chest pain type: unspecified Qualified Code(s): R07.9 - Chest pain, unspecified Disposition: Admitted As Inpatient Condition: Fair Time of Disposition: 16:45 Chest Pain HPI - General Stated Complaint: Chest pain, SOB Time Seen by Provider: 04/04/19 07:27 Source: patient, EMS Mode of arrival: EMS Limitations: no limitations Vital Signs Reviewed: Yes Nursing Notes Reviewed: Yes - History of Present Illness HPI Narrative: 68-year-old female presenting for one day mid epigastric pain radiating into her back, patient states it began about 8 PM last night she denies any palliative or provoking factors, patient states that she has a past medical history of asthma, COPD and GERD/hiatal hernia. Patient denies any past cardiac history workup. The patient states that she took her omeprazole without relief of her symptoms. Patient states she is also had a slight headache with some lightheadedness dizziness and nausea without vomiting. Patient was transported to the ED via EMS today who gave her 2 baby aspirins in route which the patient states relieved her symptoms from 10 out of 10 on the pain scale is 6 out of 10 on the pain scale. Upon my initial evaluation the patient sitting upright in a hospital bed she is awake, alert, and oriented, mentating appropriately, answering questions without difficulty or conversational dyspnea. She appears to be in no acute distress, there are no focal overt lateralizing signs noted, and the patient is hemodynamically stable at this time. My suspicion is for ACS versus gastroesophageal reflux. As patient has already taken aspirin-At this time I will order a chest x-ray, troponin, EKG/old EKG, hepatic panel, lipase and GI cocktail for management of patient's symptoms. Pt complaint: chest pain Onset (ago): day(s) Duration: constant Onset: during rest Pain Location: epigastric Severity: moderate Severity scale (1-10): 6 Quality: heaviness Pain Radiation: back Improves with: other (Aspirin) Worsens with: nothing Context: recent illness Associated symptoms: Reports: nausea, dyspnea Treatments prior to arrival chest pain: aspirin - Related Data Home Medications Medication Instructions Recorded Confirmed Furosemide [Lasix] 20 mg PO BID 12/22/15 04/04/19 Simvastatin [Zocor] 40 mg PO HS 12/22/15 04/04/19 Ergocalciferol (VITAMIN D2) 2,000 units PO DAILY 03/04/17 04/04/19 [Vitamin D2] Loratadine [Claritin] 10 mg PO DAILY 03/04/17 04/04/19 Metoprolol Succinate [Toprol Xl] 25 mg PO DAILY 01/03/19 04/04/19 Sertraline [Zoloft] 100 mg PO DAILY 01/03/19 04/04/19 Previous Rx's Medication Instructions Recorded Omeprazole [PriLOSEC] 40 mg PO DAILY #60 cap 01/05/19 Allergies Allergy/AdvReac Type Severity Reaction Status Date / Time Amoxicillin Allergy Rash Verified 01/03/19 20:11 codeine Allergy Rash Verified 01/03/19 20:11 diphenhydramine Allergy Difficulty Verified 01/03/19 20:11 [From Benadryl] Breathing Review of Systems: *See History of Present Illness for more detail Constitutional: Denies: fever, chills Cardiovascular: Admits: chest pain Respiratory: Admits: dyspnea, cough, denies: hemoptysis Gastrointestinal: Admits to abdominal pain, nausea Denies: vomiting, diarrhea, constipation, hematemesis, melena, hematochezia Genitourinary: Denies: hematuria Musculoskeletal: Denies: back pain, neck pain Neurological: Denies: headache, weakness, lightheadedness/dizziness, numbness, paresthesias, difficulty with ambulation. Endocrine: Denies: fatigue All systems ED: reviewed and negative except as stated. Review of Systems: As Per HPI Chest Pain PMH - Past Medical History Medical history: Reports: asthma, COPD, DVT, GERD, hyperlipidemia, hypertension, TIA, other Surgical history: Reports: knee replacement Psychiatric history: Reports: anxiety, depression RUSSIAN RUBBER history: Reports: no RUSSIAN RUBBER history - Social History Smoking Status: Former smoker Alcohol use: Reports: none Drug use: Reports: none Physical Exam Constitutional: No acute distress, [id number], engaged to conversation, speech is fluid, answers questions appropriately Neuro: GCS 15, no overt focal neurological deficits Head: Atraumatic, normocephalic Eyes: Pupils equal, round and reactive to light, no scleral icterus, no conjunctival injection Neck: Trachea midline without deviation. Anterior neck is supple without swelling. *Chest: Symmetric chest wall rise *Heart: Cardiac rhythm and rate are regular with S1 and S2 , no S3 or S4 appreciated, no murmurs, gallops, rubs, or clicks. *Lungs: Lungs are clear to auscultation bilaterally, without accessory muscle use or prolonged expiratory phase. No wheezes, rhonchi or stridor appreciated. Abdomen: Abdomen is flat, soft to palpation, normal bowel sounds. No abdominal bruit auscultated. Non-distended, non-rigid, no organomegaly, no ascites appreciated. No pulsatile mass, no tenderness or guarding to palpation in all four quadrants, no rebound Extremities: Normal capillary refill without evidence of pedal edema, joint swelling or erythema. Pulses/motor intact in all 4 extremities. Psychiatric exam: Patient displays a normal affect and mood for the environment. No overt signs of hallucination. Integumentary: warm, dry, intact, normal color. No rash, cyanosis, diaphoresis, erythema, or pallor - General Limitations: no limitations General appearance: alert, in no apparent distress Course Course Narrative: Hepatic panel, lipase, chest x-ray, EKG/old EKG, troponin, GI cocktail. Patient EKG performed via EMS in route to the hospital shows no acute pathology. EKG interpreted by myself and attending physician Godfrey Urbina shows a sinus rhythm without acute ischemic changes when compared to prior. - Reevaluation(s) Reevaluation #1: Patient's laboratory, imaging and EKG are negative for acute pathology. On reevaluation of the patient she states that her pain is getting worse at this time. Patient's heart score is 4. Shared decision making was utilized based on this with the patient who states that she would prefer to be admitted at this time as she states that she actually did have a recent cardiac catheterization and is concerned about what is causing her pain. This patient has artery receive 2 baby aspirin from EMS we will give another 162 mg at this time with nitroglycerin for the management of patient's pain. Patient will be admitted to hospitalist medicine service for ACS rule out in the setting of chest pain. The patient verbalizes her understanding and agreement this plan and his hemodynamic was stable time of admission. Time: 09:09 Vital Signs Temperature 98.9 F 04/04/19 07:24 Pulse Rate 72 04/04/19 07:24 Respiratory Rate 18 04/04/19 07:24 Blood Pressure 103/83 04/04/19 07:24 O2 Sat by Pulse Oximetry 96 04/04/19 07:24 Temperature 98.6 F 04/04/19 15:03 Pulse Rate 76 04/04/19 15:03 Respiratory Rate 17 04/04/19 15:03 Blood Pressure 116/71 04/04/19 15:03 O2 Sat by Pulse Oximetry 95 04/04/19 15:03 Oxygen Delivery Oxygen Delivery Room Air Chest Pain - MDM Narrative Medical decision making narrative: Patient to the hospital medicine service with hospitalist accepting admission. - Lab Data Lab Results 04/04/19 Range/Units 07:35 Total Bilirubin 0.5 (0.3-1.0) mg/dL Direct Bilirubin 0.0 (0.0-0.2) mg/dL Indirect Bilirubin 0.5 (0.0-1.2) mg/dL AST 23 (13-39) Units/L ALT 22 (7-52) Units/L Alkaline Phosphatase 86 (34-104) Units/L Troponin I < 0.03 (< 0.04) ng/mL Serum Total Protein 7.5 (6.4-8.9) g/dL Albumin 4.5 (3.5-5.7) g/dL Globulin 3.0 (2.4-3.5) g/dL Albumin/Globulin Ratio 1.5 (1.1-2.2) Lipase 33 (11-82) Units/L - Radiology Data Radiology results reviewed: Yes I reviewed the patient's radiology results. Chest X-Ray 04/04/19 07:27 IMPRESSION: No acute cardiopulmonary process. D/ / 04/04/2019 08:05:52 Alec Stanford MD / [facility] Interpreting Provider: Alec Stanford MD - EKG Data EKG attestation: Yes I reviewed and interpreted this EKG. EKG results narrative: The patient's EKG shows a sinus rhythm with a heart of 72 bpm, ND interval 130 ms, QRS duration of 87 ms, QT/QTc interval of 417/457 ms respectively. There are no significant ST segment elevations, depressions, pathologic Q waves, abnormal T-wave inversions, nor any other signs of acute ischemic change. This EKG which was performed today appears to be similar in morphology to prior EKG which was performed on 03/17/2019. Heart Score - Score History: Slightly Suspicious EKG: Normal Age: Greater than 65 Risk Factors: Equal/Greater than 3 risk factor or history of atherosclerotic disease Troponin: Less than normal limit HEART Score Total: 4
--- NOTE | 2019-04-04 07:32 | Emergency Department Note ---
Disposition Clinical Impression: Chest pain Qualifiers: Chest pain type: unspecified Qualified Code(s): R07.9 - Chest pain, unspecified Disposition: Still a Patient Time of Disposition: 07:31 General Adult HPI - General Chief complaint: ED Chest Pain Stated complaint: Chest pain, SOB Time Seen by Provider: 04/04/19 07:27 Source: patient, EMS Limitations: no limitations Nursing Notes Reviewed: Yes Vital Signs Reviewed: Yes - History of Present Illness HPI Narrative: Attestation note: Patient was seen with the emergency medicine resident/nurse practitioner/ physician assistant professor of forestry/transitional resident/medical student: Dr. Justice Figueroa. This includes well any procedures performed for this significant portion thereof which are to include EKG and bedside ultrasound I have personally performed a face to face evaluation on this patient. I have reviewed and agree with history and physical examination patient management and disposition. Briefly the salient points of the case are as follows: 68-year-old female with epigastric pain history of GERD and hiatal hernia states no prior SC no stents. On physical examination was unremarkable EKG shows no acute ischemic changes afebrile with stable vital signs her HEART score 3. Although we anticipate are symptoms more consistent with a presentation of GERD or reflux we will obtain troponin chest x-ray and a repeat 12-lead EKG anticipated disposition is symptomatic relief discharge home and close outpatient follow-up. Disposition pending Pain Scale: 6 - Related Data Home Medications Medication Instructions Recorded Confirmed Cyanocobalamin (Vitamin B-12) 1,000 mcg SL DAILY 12/22/15 03/17/19 [Vitamin B-12] Furosemide [Lasix] 20 mg PO BID 12/22/15 03/17/19 Simvastatin [Zocor] 40 mg PO HS 12/22/15 03/17/19 Ergocalciferol (VITAMIN D2) 2,000 units PO DAILY 03/04/17 03/17/19 [Vitamin D2] Loratadine [Claritin] 10 mg PO DAILY 03/04/17 03/17/19 Metoprolol Succinate [Toprol Xl] 25 mg PO DAILY 01/03/19 03/17/19 Sertraline [Zoloft] 100 mg PO DAILY 01/03/19 03/17/19 Trazodone HCl 100 mg PO HS PRN 01/03/19 03/17/19 Albuterol Sulfate [Ventolin Hfa] 2 puff IH Q6H PRN 03/17/19 03/17/19 Previous Rx's Medication Instructions Recorded Omeprazole [PriLOSEC] 40 mg PO DAILY #60 cap 01/05/19 Aspirin 81 mg PO DAILY #30 tab.chew 03/19/19 Allergies Allergy/AdvReac Type Severity Reaction Status Date / Time Amoxicillin Allergy Rash Verified 01/03/19 20:11 codeine Allergy Rash Verified 01/03/19 20:11 diphenhydramine Allergy Difficulty Verified 01/03/19 20:11 [From Benadryl] Breathing Past Medical History - Past Medical History Medical history: Reports: asthma, COPD, DVT, GERD, hyperlipidemia, hypertension, TIA, other Surgical history: Reports: knee replacement Psychiatric history: Reports: anxiety, depression WOOD TREATING INSPECTOR history: Reports: no WOOD TREATING INSPECTOR history - Social History Smoking Status: Former smoker Smokeless Tobacco Status: No Alcohol use: Reports: none Drug use: Reports: none Physical Exam - General Limitations: no limitations General appearance: alert, in no apparent distress Course Vital Signs Temperature 98.9 F 04/04/19 07:24 Pulse Rate 72 04/04/19 07:24 Respiratory Rate 18 04/04/19 07:24 Blood Pressure 103/83 04/04/19 07:24 O2 Sat by Pulse Oximetry 96 04/04/19 07:24 Temperature 98.9 F 04/04/19 07:24 Pulse Rate 72 04/04/19 07:24 Respiratory Rate 18 04/04/19 07:24 Blood Pressure 103/83 04/04/19 07:24 O2 Sat by Pulse Oximetry 96 04/04/19 07:24 Oxygen Delivery Oxygen Delivery Room Air
[2019-04-04 08:07] LABS: Alanine Aminotransferase 22 Units/L (7-52); Albumin 4.5 g/dL (3.5-5.7); Albumin/Globulin Ratio 1.5 (1.1-2.2); Alkaline Phosphatase 86 Units/L (34-104); Aspartate Amino Transferase 23 Units/L (13-39); Bilirubin,Indirect 0.5 mg/dL (0.0-1.2); Bilirubin,Total 0.5 mg/dL (0.3-1.0); Lipase 33 Units/L (11-82); Total Protein 7.5 g/dL (6.4-8.9); Troponin I < 0.03 ng/mL (< 0.04)
[2019-04-04] MEDS: Aspirin 81 MG TAB.CHEW PO SCH (09:40)
[2019-04-04] MEDS: Nitroglycerin 0.4 MG TAB.SUBL SL SCH ×3 (09:41→14:40)
[2019-04-04] MEDS ORDERED: Naloxone 0.4 MG/ML INJ IVP PRN (09:51)
[2019-04-04] MEDS ORDERED: GI Cocktail 40 ML EACH PO PRN (09:53)
--- NOTE | 2019-04-04 10:06 | Internal Med History&Physical ---
Date of Encounter: 04/04/19 Time of Encounter: 09:54 Internal Medicine - H&P: HPI History of present illness: Ms. Grissom is a 68 year old female with history of COPD, GERD, hiatal hernia, hypertension, DVT 6 years ago presented to ED for chest pain that started overnight. Patient states she was just at home laying down without any exertion. She took her ppi at home without relief of symptoms. She complained of nausea and chills, denied fevers, trauma, palpitations. En route to ED she received 2 baby aspirin which relieved her pain from a 10/10 to a 6/10. In the ED she was given two additional nitro that did make her pain at bedside go from 5/10 to 2/10. A troponin done at bedside negative. EKG showed no acute changes. Chest x-ray was negative. Of note, she had a LHC two weeks ago that showed coronary arteries are angiographically normal with normal EF of 60%. Past Med Surg Social Fam HX - Past Medical History Medical history: asthma, COPD, DVT, GERD, hyperlipidemia, hypertension, TIA, other Additional medical history: diverticulitis. hemorrhoids Psychiatric history: anxiety, depression - Past Surgical History Surgical History: knee replacement Additional surgical history: left knee replacement, partial hyster - Social History Smoking Status: Former smoker Smokeless Tobacco Status: No Alcohol use: none Drug use: none - Family History Mother Family Member Ethnicity: Non- Living Status: Hx Family Cardiac Disorders: Yes Hx Family Respiratory Disorders: No Hx Family Cancer: Yes Hx Family Neurologic Disorders: Yes (CVA) Father Living Status: Hx Family Cardiac Disorders: Yes Internal Medicine - H&P: Meds Furosemide [Lasix] 20 mg PO BID 12/22/15 [History] Simvastatin [Zocor] 40 mg PO HS 12/22/15 [History] Ergocalciferol (VITAMIN D2) [Vitamin D2] 2,000 units PO DAILY 03/04/17 [History] Loratadine [Claritin] 10 mg PO DAILY 03/04/17 [History] Metoprolol Succinate [Toprol Xl] 25 mg PO DAILY 01/03/19 [History] Sertraline [Zoloft] 100 mg PO DAILY 01/03/19 [History] Omeprazole [PriLOSEC] 40 mg PO DAILY #60 cap 01/05/19 [Rx] Allergy/AdvReac Type Severity Reaction Status Date / Time Amoxicillin Allergy Rash Verified 01/03/19 20:11 codeine Allergy Rash Verified 01/03/19 20:11 diphenhydramine Allergy Difficulty Verified 01/03/19 20:11 [From Benadryl] Breathing All Systems PM: A 10-system review of systems was performed and is negative for pertinent findings except as documented above in the HPI. - Constitutional Constitutional: chills, no fever(s), no night sweats - EENT Eyes: no change in vision, no discharge, no pain, no photophobia Ears: no ear discharge, no ear pain, no tinnitus Nose, mouth and throat: no dysphagia, no nasal discharge, no neck pain, no sore throat - Cardiovascular Cardiovascular ROS IM: chest pain, dyspnea, no diaphoresis, no lightheadedness, no palpitations, no syncope - Respiratory Respiratory: dyspnea, no cough, no wheezing, no excessive phlegm production - Gastrointestinal Gastrointestinal: abdominal pain, nausea, vomiting, no diarrhea, no hematemesis, no hematochezia, no melena - Genitourinary Genitourinary: no change in urinary stream, no dysuria, no flank pain, no hematuria - Musculoskeletal Musculoskeletal ROS IM: no numbness, no tingling - Integumentary Integumentary IM: no rash, no unusual bruising - Neurological Neurological ROS: no confusion, no convulsions, no focal weakness, no numbness, no tingling, no tremor(s) - Hematologic/Lymphatic Hematologic/Lymphatic: no easy bruising - Constitutional Vitals: Temp Pulse Resp BP Pulse Ox 98.9 F 85 18 101/64 95 04/04/19 07:24 04/04/19 09:53 04/04/19 09:53 04/04/19 09:53 04/04/19 09:53 Exam: . - Head Head exam: Present: atraumatic, normocephalic - Eye Eye exam: Present: PERRL, conjuntiva pink, sclera anicteric Pupils: Present: PERRL - Neck Neck exam general surgery: Present: supple, trachea midline. Absent: lymphadenopathy - Respiratory Respiratory exam: Present: CTAB. Absent: accessory muscle use, rales, rhonchi, wheezes - Cardiovascular Cardiovascular exam: Present: RRR, +S1, +S2. Absent: diastolic murmur, gallop, rubs, systolic murmur - GI/Abdominal GI/Abdominal exam: Present: normal bowel sounds, soft, no peritoneal signs. Absent: distended, tenderness - Extremities Exam Extremities exam: Present: warm, radial pulses palpable and symmetrical. Absent: calf tenderness, cyanotic, pedal edema - Neurological Exam Neurological exam: Present: CN II-XII intact, oriented X3, no focal deficits. Absent: pronater drift, facial droop, speech deficit - Skin Skin exam: Present: dry, intact Internal Med - H&P Results - Labs Labs: Cardiac Enzymes 04/04/19 Range/Units 07:35 Troponin I < 0.03 (< 0.04) ng/mL Liver Function 04/04/19 Range/Units 07:35 Total Bilirubin 0.5 (0.3-1.0) mg/dL Direct Bilirubin 0.0 (0.0-0.2) mg/dL AST 23 (13-39) Units/L ALT 22 (7-52) Units/L Alkaline Phosphatase 86 (34-104) Units/L Albumin 4.5 (3.5-5.7) g/dL - Impressions ITS Impressions Chest X-Ray 04/04/19 07:27 IMPRESSION: No acute cardiopulmonary process. D/ / 04/04/2019 08:05:52 Alec Stanford MD / [facility] Interpreting Provider: Alec Stanford MD - Assessment and Plan (1) Chest pain Current Visit: Yes Status: Acute Assessment and plan: HEART score 4. Relieved by nitro but located in upper abdominal quadrants and some substernal region with nausea episode. GI cocktail in ED was not effective, but nitro was reported in ED to take pain from a 5/10 to 2/10 after two doses. Prior LHC noted as above. Well's Score low not likely PE. Rule out ACS, other etiologies include GERD, hiatal wall or hernia of abdominal wall. Body habitus limits a hernia evaluation. - Cycle cardiac enzymes. - Nitro sl prn. - Treatement of GERD and monitor. Qualifiers: Chest pain type: unspecified Qualified Code(s): R07.9 - Chest pain, unspecified (2) GERD (gastroesophageal reflux disease) Current Visit: No Status: Acute Assessment and plan: Continue home medications, add Pepcid as well. Qualifiers: Esophagitis presence: without esophagitis Qualified Code(s): K21.9 - Gastro-esophageal reflux disease without esophagitis (3) COPD (chronic obstructive pulmonary disease) Current Visit: No Status: Chronic Assessment and plan: Not in acute exacerbation. Qualifiers: COPD type: COPD with acute exacerbation Qualified Code(s): J44.1 - Chronic obstructive pulmonary disease with (acute) exacerbation (4) Hypertension Current Visit: No Status: Chronic Assessment and plan: Resume home medications. Qualifiers: Hypertension type: essential hypertension Qualified Code(s): I10 - Essential (primary) hypertension (5) History of DVT (deep vein thrombosis) Current Visit: Yes Status: Acute Assessment and plan: Reports occurred 6 years ago and so is not on any anticoagulation. No acute findings on physical exam today. Will place on SQ heparin 5,000 units TID. - Time Spent With Patient Total time spent is greater than 50% in coordination of care (as documented) at patient's floor/unit and/or counseling patient:
[2019-04-04] MEDS: Furosemide 20 MG TABLET PO SCH (16:49)
[2019-04-04] MEDS ORDERED: Famotidine 20 MG/2 ML VIAL IVP SCH (18:00)
--- NOTE | 2019-04-05 00:28 | Electrocardiograph Report ---
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
[2019-04-05] MEDS: Furosemide 20 MG TABLET PO SCH (08:51)
[2019-04-05] MEDS: Aspirin 81 MG TAB.CHEW PO SCH (08:51)
[2019-04-05] MEDS ORDERED: Cholecalciferol (D-3) 1,000 UNIT (25MCG) TABLET PO SCH (09:00)
[2019-04-05] MEDS ORDERED: Metoprolol XL (24 HR) Succ 25 MG TAB.ER.24H PO SCH (09:00)
[2019-04-05] MEDS ORDERED: Loratadine 10 MG TABLET PO SCH (09:00)
--- NOTE | 2019-04-05 11:13 | Discharge Summary ---
Date of Encounter: 04/05/19 Time of Encounter: 11:00 - Discharge Diagnosis (1) Chest pain Priority: Primary Status: Acute Assessment and Plan: 68 year old female with history of COPD, GERD, hiatal hernia, hypertension, DVT 6 years ago presented to ED for chest pain that started overnight. Patient states she was just at home laying down without any exertion. She took her ppi at home without relief of symptoms. She complained of nausea and chills, denied fevers, trauma, palpitations. En route to ED she received 2 baby aspirin which relieved her pain from a 10/10 to a 6/10. In the ED she was given two additional nitro that did make her pain at bedside go from 5/10 to 2/10. A troponin done at bedside negative. EKG showed no acute changes. Chest x-ray was negative. Of note, she had a LHC two weeks ago that showed coronary arteries are angiographically normal with normal EF of 60%. She has a recent normal cardiac cath. SHe was assessed with chest pain likely secondary to GERD vs symptomatic cholecystitis / cholecystitis. Troponins were negative. Abdominal ultrasound was done and showed no acute findings. Her symptoms improved with pepcid. She was discharged in a stable condition Qualifiers: Chest pain type: unspecified Qualified Code(s): R07.9 - Chest pain, unspecified (2) Hypertension Priority: Primary Status: Chronic Qualifiers: Hypertension type: essential hypertension Qualified Code(s): I10 - Essential (primary) hypertension (3) COPD (chronic obstructive pulmonary disease) Priority: Primary Status: Chronic Qualifiers: COPD type: COPD with acute exacerbation Qualified Code(s): J44.1 - Chronic obstructive pulmonary disease with (acute) exacerbation (4) GERD (gastroesophageal reflux disease) Priority: Primary Status: Acute Qualifiers: Esophagitis presence: without esophagitis Qualified Code(s): K21.9 - Gastro-esophageal reflux disease without esophagitis (5) History of DVT (deep vein thrombosis) Priority: Primary Status: Acute Hospital course: Ms. Grissom is a 68 year old female - Time Spent with Patient Total time spent providing and/or coordinating discharge services: - Discharge Medications Prescriptions: New Aspirin 81 mg PO DAILY 30 Days #30 tab.chew Famotidine [Pepcid] 20 mg PO BID #60 tablet Continued Simvastatin [Zocor] 40 mg PO HS Furosemide [Lasix] 20 mg PO BID Loratadine [Claritin] 10 mg PO DAILY Ergocalciferol (VITAMIN D2) [Vitamin D2] 2,000 units PO DAILY Metoprolol Succinate [Toprol Xl] 25 mg PO DAILY Sertraline [Zoloft] 100 mg PO DAILY Omeprazole [PriLOSEC] 40 mg PO DAILY #60 cap Home Medications: Furosemide [Lasix] 20 mg PO BID 12/22/15 [History] Simvastatin [Zocor] 40 mg PO HS 12/22/15 [History] Ergocalciferol (VITAMIN D2) [Vitamin D2] 2,000 units PO DAILY 03/04/17 [History] Loratadine [Claritin] 10 mg PO DAILY 03/04/17 [History] Metoprolol Succinate [Toprol Xl] 25 mg PO DAILY 01/03/19 [History] Sertraline [Zoloft] 100 mg PO DAILY 01/03/19 [History] Omeprazole [PriLOSEC] 40 mg PO DAILY #60 cap 01/05/19 [Rx] Aspirin 81 mg PO DAILY 30 Days #30 tab.chew 04/05/19 [Rx] Famotidine [Pepcid] 20 mg PO BID #60 tablet 04/05/19 [Rx] Allergies/Adverse Reactions: Allergy/AdvReac Type Severity Reaction Status Date / Time Amoxicillin Allergy Rash Verified 01/03/19 20:11 codeine Allergy Rash Verified 01/03/19 20:11 diphenhydramine Allergy Difficulty Verified 01/03/19 20:11 [From Benadryl] Breathing Date of admission: 04/04/19 11:55 Primary care physician: Edy Butler - Constitutional Vitals: Temp Pulse Resp BP Pulse Ox 98.2 F 74 16 107/73 95 04/05/19 07:24 04/05/19 07:24 04/05/19 07:24 04/05/19 07:24 04/05/19 07:24 Exam: NAD - Head Head exam: Present: atraumatic, normocephalic - Eye Eye exam: Present: PERRL, conjuntiva pink, sclera anicteric Pupils: Present: PERRL - Neck Neck exam general surgery: Present: supple, trachea midline. Absent: lymphadenopathy - Respiratory Respiratory exam: Present: CTAB. Absent: accessory muscle use, rales, rhonchi, wheezes - Cardiovascular Cardiovascular exam: Present: RRR, +S1, +S2. Absent: diastolic murmur, gallop, rubs, systolic murmur - GI/Abdominal GI/Abdominal exam: Present: normal bowel sounds, soft, no peritoneal signs. Absent: distended, tenderness - Extremities Exam Extremities exam: Present: warm, radial pulses palpable and symmetrical. Absent: calf tenderness, cyanotic, pedal edema - Neurological Exam Neurological exam: Present: CN II-XII intact, oriented X3, no focal deficits. Absent: pronater drift, facial droop, speech deficit - Skin Skin exam: Present: dry, intact - Patient Status Disposition: Home, Self-Care Condition: Fair - Discharge Instructions Instructions: Angina (DC) Follow Up With: Edy Butler [Primary Care Provider] -
[2019-04-05 11:48] VITALS: BP 111/74
== END 2019-04-05 15:33 | disposition home or self-care (01) ==
LOC: 3BNU 07:20 → EMEROOARM 07:20 → 3BNU 12:38
PROVIDERS: ADMIT Student in an Organized Health Care Education/Training Program; ATTEND Student in an Organized Health Care Education/Training Program

== ENCOUNTER 2019-10-28 05:39 | Observation (INO) ==
[2019-10-28] MEDS ORDERED: Isovue-370 500 ML BOTTLE IVP ONE ×2 (06:01→10:22)
[2019-10-28] MEDS: Nitroglycerin 0.4 MG TAB.SUBL SL PRN ×3 (06:09→06:21)
[2019-10-28 06:31] LABS: INR 0.9; Prothrombin Time 10.7 Seconds (9.4-12.1)
[2019-10-28 06:33] LABS: Activated Partial Thrombo Time 28.9 Seconds (26.0-36.0)
[2019-10-28 06:35] LABS: Basophils # 0.1 K/mcL (0.0-0.2); Basophils % 0.7 %; Eosinophils # 0.3 K/mcL (0.0-0.6); Eosinophils % 3.8 %; Hematocrit 35.7 % (35.3-44.9); Hemoglobin 11.5 g/dL (11.5-15.4); Immature Granulocytes % 0.3 % (0-4); Lymphocytes # 2.1 K/mcL (0.6-4.6); Lymphocytes % 31.4 %; Mean Corpuscular HGB Conc 32.2 g/dL (31.6-35.5); Mean Corpuscular Hemoglobin 28.6 pg (28.0-33.3); Mean Corpuscular Volume 88.8 fL (83.0-100.0); Mean Platelet Volume 9.5 fL (9.4-12.4); Monocytes # 0.7 K/mcL (0.0-1.3); Monocytes % 10.5 %; Neutrophils # 3.6 K/mcL (1.6-8.9); Platelet Count 235 K/mcL (140-400); Red Blood Count 4.02 M/mcL (3.82-4.97); Red Cell Distribution Width 13.5 % (11.5-14.5); Segmented Neutrophils % 53.3 %; White Blood Count 6.8 K/mcL (4.3-11.1)
[2019-10-28 06:53] LABS: BUN/Creatinine Ratio 31 (6-26); Blood Urea Nitrogen 26 mg/dL (8-23); Calcium 8.3 mg/dL (8.6-10.3); Carbon Dioxide 26 mEq/L (23-29); Chloride 105 mEq/L (98-107); Glucose 103 mg/dL (70-105); Lipase 38 Units/L (11-82); Osmolality,Calculated 303 (280-300); Potassium 3.2 mEq/L (3.5-5.1); Sodium 144 mEq/L (136-145); Troponin I < 0.03 ng/mL (< 0.04); eGFR For African Americans > 60 (> 60); eGFR For Non-African Americans > 60 (> 60)
[2019-10-28] MEDS ORDERED: Aspirin 81 MG TAB.CHEW PO STA (08:13)
[2019-10-28 08:15] LABS: Magnesium 1.5 mg/dL (1.6-2.6)
[2019-10-28] MEDS ORDERED: Ondansetron 4 MG/2 ML VIAL IVP PRN (09:11)
[2019-10-28] MEDS ORDERED: Naloxone 0.4 MG/ML INJ IVP PRN (09:11)
[2019-10-28] MEDS ORDERED: Ipratropium/Albuterol Neb 3 ML IH PRN (09:34)
[2019-10-28] MEDS ORDERED: Isovue-370 500 ML BOTTLE PO ONE (10:57)
[2019-10-28] MEDS: Budesonide/Formoterol 160/4.5 1 PUFF INH IH SCH ×2 (11:18→20:28)
[2019-10-28] MEDS: *HR* Heparin 5,000 UNIT/ML VIAL SQ SCH ×2 (13:06→20:06)
[2019-10-28] MEDS: Pantoprazole 40 MG VIAL IVP SCH (13:06)
[2019-10-28] MEDS ORDERED: Perflutren Lipid Microsphere 1.3 ML in 0.9 % Sodium Chloride 8.7 ML IVP ONE (16:04)
[2019-10-28] MEDS ORDERED: Acetaminophen 325 MG TABLET PO ONE (19:18)
[2019-10-29 04:37] LABS: Basophils % 0.7 %; Eosinophils # 0.3 K/mcL (0.0-0.6); Eosinophils % 4.9 %; Hematocrit 33.3 % (35.3-44.9); Hemoglobin 11.1 g/dL (11.5-15.4); Immature Granulocytes % 0.2 % (0-4); Lymphocytes % 34.2 %; Mean Corpuscular HGB Conc 33.3 g/dL (31.6-35.5); Mean Corpuscular Hemoglobin 29.2 pg (28.0-33.3); Mean Corpuscular Volume 87.6 fL (83.0-100.0); Mean Platelet Volume 9.9 fL (9.4-12.4); Monocytes # 0.7 K/mcL (0.0-1.3); Monocytes % 11.9 %; Neutrophils # 2.7 K/mcL (1.6-8.9); Platelet Count 232 K/mcL (140-400); Segmented Neutrophils % 48.1 %; White Blood Count 5.7 K/mcL (4.3-11.1)
[2019-10-29 04:44] LABS: Prothrombin Time 11.1 Seconds (9.4-12.1)
[2019-10-29 04:57] LABS: BUN/Creatinine Ratio 20 (6-26); Blood Urea Nitrogen 20 mg/dL (8-23); Calcium 8.6 mg/dL (8.6-10.3); Carbon Dioxide 28 mEq/L (23-29); Chloride 105 mEq/L (98-107); Chol/HDL Ratio 4.6 (0-4.9); Cholesterol 174 mg/dL (< 200); Glucose 143 mg/dL (70-105); HDL Cholesterol 38 mg/dL (40-59); LDL Cholesterol,Calculated 91 mg/dL (0-99); Magnesium 2.3 mg/dL (1.6-2.6); Osmolality,Calculated 297 (280-300); Potassium 3.9 mEq/L (3.5-5.1); Sodium 141 mEq/L (136-145); Triglycerides 225 mg/dL (< 150); eGFR For African Americans > 60 (> 60); eGFR For Non-African Americans 55 (> 60)
[2019-10-29] MEDS: *HR* Heparin 5,000 UNIT/ML VIAL SQ SCH (05:00)
[2019-10-29 07:47] LABS: Estimated Average Glucose 128 mg/dl
[2019-10-29] MEDS: Budesonide/Formoterol 160/4.5 1 PUFF INH IH SCH (07:55)
[2019-10-29] MEDS ORDERED: Aspirin Enteric Coated 81 MG Tablet PO SCH (09:00)
[2019-10-29] MEDS: Pantoprazole 40 MG VIAL IVP SCH (10:01)
[2019-10-29] MEDS ORDERED: Acetaminophen 325 MG TABLET PO ONE (10:12)
[2019-10-29 11:02] VITALS: BP 128/81
== END 2019-10-29 12:10 | disposition home or self-care (01) ==
LOC: SUATTDRO → CDU 05:39 → EMEROOARM 05:39 → CDU 10:02 → 3BNU 18:25
PROVIDERS: ADMIT Internal Medicine; ATTEND Internal Medicine

== ENCOUNTER 2020-01-01 13:51 | Observation (INO) ==
[2020-01-01 14:29] LABS: Prothrombin Time 11.4 Seconds (9.4-12.1)
[2020-01-01 14:32] LABS: Activated Partial Thrombo Time 30.9 Seconds (26.0-36.0)
[2020-01-01 14:42] LABS: Basophils % 0.7 %; Eosinophils # 0.1 K/mcL (0.0-0.6); Eosinophils % 1.7 %; Hematocrit 40.8 % (35.3-44.9); Hemoglobin 12.8 g/dL (11.5-15.4); Immature Granulocytes % 0.3 % (0-4); Lymphocytes # 1.5 K/mcL (0.6-4.6); Lymphocytes % 24.9 %; Mean Corpuscular HGB Conc 31.4 g/dL (31.6-35.5); Mean Corpuscular Volume 89.3 fL (83.0-100.0); Mean Platelet Volume 9.1 fL (9.4-12.4); Monocytes # 0.6 K/mcL (0.0-1.3); Monocytes % 10.1 %; Neutrophils # 3.6 K/mcL (1.6-8.9); Platelet Count 353 K/mcL (140-400); Red Blood Count 4.57 M/mcL (3.82-4.97); Red Cell Distribution Width 14.6 % (11.5-14.5); Segmented Neutrophils % 62.3 %; White Blood Count 5.8 K/mcL (4.3-11.1)
[2020-01-01 14:46] LABS: BUN/Creatinine Ratio 16 (6-26); Blood Urea Nitrogen 16 mg/dL (8-23); Calcium 9.6 mg/dL (8.6-10.3); Carbon Dioxide 27 mEq/L (23-29); Chloride 103 mEq/L (98-107); Glucose 121 mg/dL (70-105); Osmolality,Calculated 288 (280-300); Sodium 138 mEq/L (136-145); Troponin I < 0.03 ng/mL (< 0.04); eGFR For African Americans > 60 (> 60); eGFR For Non-African Americans 56 (> 60)
[2020-01-01] MEDS ORDERED: MOM Conc 10 ML UD.LIQ PO PRN (16:12)
[2020-01-01] MEDS ORDERED: Mag Hydrox/Al Hydrox/Simeth 30 ML UDC PO PRN (16:12)
[2020-01-01] MEDS ORDERED: Ondansetron 4 MG/2 ML VIAL IVP PRN (16:12)
[2020-01-01] MEDS ORDERED: Acetaminophen 325 MG TABLET PO PRN (16:12)
[2020-01-01] MEDS ORDERED: *HR* Promethazine 25 MG/ML VIAL IVP PRN (16:12)
[2020-01-01] MEDS ORDERED: Naloxone 0.4 MG/ML INJ IVP PRN (16:12)
[2020-01-01] MEDS ORDERED: *HR* HYDROcodone/Acet 5/325 mg TABLET PO PRN (16:12)
[2020-01-01] MEDS: Aspirin Enteric Coated 81 MG Tablet PO SCH (17:27)
[2020-01-01] MEDS: *HR* Heparin 5,000 UNIT/ML VIAL SQ SCH (17:27)
[2020-01-02 04:28] LABS: Basophils # 0.1 K/mcL (0.0-0.2); Basophils % 0.6 %; Eosinophils # 0.2 K/mcL (0.0-0.6); Eosinophils % 2.7 %; Hematocrit 37.9 % (35.3-44.9); Immature Granulocytes % 0.1 % (0-4); Lymphocytes # 3.3 K/mcL (0.6-4.6); Lymphocytes % 43.1 %; Mean Corpuscular HGB Conc 31.7 g/dL (31.6-35.5); Mean Corpuscular Hemoglobin 28.5 pg (28.0-33.3); Mean Platelet Volume 9.2 fL (9.4-12.4); Monocytes # 0.8 K/mcL (0.0-1.3); Monocytes % 10.4 %; Neutrophils # 3.3 K/mcL (1.6-8.9); Platelet Count 330 K/mcL (140-400); Red Blood Count 4.21 M/mcL (3.82-4.97); Red Cell Distribution Width 14.5 % (11.5-14.5); Segmented Neutrophils % 43.1 %; White Blood Count 7.7 K/mcL (4.3-11.1)
[2020-01-02 04:50] LABS: Alanine Aminotransferase 30 Units/L (7-52); Albumin 4.2 g/dL (3.5-5.7); Albumin/Globulin Ratio 1.7 (1.1-2.2); Alkaline Phosphatase 93 Units/L (34-104); Aspartate Amino Transferase 27 Units/L (13-39); BUN/Creatinine Ratio 19 (6-26); Bilirubin,Total 0.4 mg/dL (0.3-1.0); Blood Urea Nitrogen 21 mg/dL (8-23); Carbon Dioxide 29 mEq/L (23-29); Chloride 103 mEq/L (98-107); Globulin 2.5 g/dL (2.4-3.5); Glucose 115 mg/dL (70-105); Magnesium 2.2 mg/dL (1.6-2.6); Osmolality,Calculated 292 (280-300); Phosphorous 5.6 mg/dL (2.7-4.5); Potassium 4.4 mEq/L (3.5-5.1); Sodium 139 mEq/L (136-145); Total Protein 6.7 g/dL (6.4-8.9); eGFR For African Americans > 60 (> 60); eGFR For Non-African Americans 50 (> 60)
[2020-01-02] MEDS: *HR* Heparin 5,000 UNIT/ML VIAL SQ SCH (05:04)
[2020-01-02] MEDS: Aspirin Enteric Coated 81 MG Tablet PO SCH (07:38)
[2020-01-02 07:57] VITALS: BP 115/79
== END 2020-01-02 10:55 | disposition home or self-care (01) ==
LOC: EMEROOARM 13:51 → 3BNU 13:51
PROVIDERS: ADMIT Internal Medicine; ATTEND Internal Medicine

== ENCOUNTER 2020-05-26 07:08 | Observation (INO) ==
[2020-05-26] MEDS ORDERED: Aspirin 81 MG TAB.CHEW PO ONE (07:16)
[2020-05-26] MEDS ORDERED: methylPREDNISolone 125 MG/2 ML VIAL IVP ONE (07:17)
[2020-05-26] MEDS ORDERED: Ipratropium/Albuterol Neb 3 ML IH ONE (07:17)
[2020-05-26 07:40] LABS: Basophils # 0.1 K/mcL (0.0-0.2); Basophils % 0.7 %; Eosinophils # 0.3 K/mcL (0.0-0.6); Eosinophils % 3.7 %; Hematocrit 36.7 % (35.3-44.9); Hemoglobin 11.8 g/dL (11.5-15.4); Immature Granulocytes % 0.4 % (0-4); Lymphocytes # 2.3 K/mcL (0.6-4.6); Lymphocytes % 29.7 %; Mean Corpuscular HGB Conc 32.2 g/dL (31.6-35.5); Mean Corpuscular Hemoglobin 28.4 pg (28.0-33.3); Mean Corpuscular Volume 88.4 fL (83.0-100.0); Mean Platelet Volume 9.2 fL (9.4-12.4); Monocytes # 0.8 K/mcL (0.0-1.3); Monocytes % 9.9 %; Neutrophils # 4.3 K/mcL (1.6-8.9); Platelet Count 317 K/mcL (140-400); Red Blood Count 4.15 M/mcL (3.82-4.97); Red Cell Distribution Width 13.8 % (11.5-14.5); Segmented Neutrophils % 55.6 %; White Blood Count 7.7 K/mcL (4.3-11.1)
[2020-05-26 07:41] LABS: INR 0.9; Prothrombin Time 10.7 Seconds (9.4-12.1)
[2020-05-26 07:44] LABS: Activated Partial Thrombo Time 30.8 Seconds (26.0-36.0)
[2020-05-26 07:57] LABS: BUN/Creatinine Ratio 17 (6-26); Blood Urea Nitrogen 16 mg/dL (8-23); Calcium 9.4 mg/dL (8.6-10.3); Carbon Dioxide 27 mEq/L (23-29); Chloride 105 mEq/L (98-107); Glucose 115 mg/dL (70-105); Osmolality,Calculated 292 (280-300); Potassium 3.6 mEq/L (3.5-5.1); Sodium 140 mEq/L (136-145); Troponin I < 0.03 ng/mL (< 0.04); eGFR For African Americans > 60 (> 60); eGFR For Non-African Americans 58 (> 60)
[2020-05-26] MEDS ORDERED: Naloxone 0.4 MG/ML INJ IVP PRN (08:59)
[2020-05-26] MEDS ORDERED: *HR* Dextrose 50 % in Water (Vial) 50 ML VIAL IVP PRN (09:00)
[2020-05-26] MEDS ORDERED: Dextrose Gel 15 GM/37.5 ML TUBE PO PRN ×2 (09:00)
[2020-05-26] MEDS ORDERED: D5% in Water 1,000 ML IVC PRN (09:00)
[2020-05-26] MEDS ORDERED: Nitroglycerin 0.4 MG TAB.SUBL SL PRN (09:01)
[2020-05-26] MEDS ORDERED: Ondansetron 4 MG/2 ML VIAL IVP ONE (09:01)
[2020-05-26 09:39] LABS: Adenovirus Not Detected (Not Detect); Bordetella Pertussis Not Detected (Not Detect); Chlamydophila pneumoniae Not Detected (Not Detect); Coronavirus 229E Not Detected (Not Detect); Coronavirus HKU1 Not Detected (Not Detect); Coronavirus NL63 Not Detected (Not Detect); Coronavirus OC43 Not Detected (Not Detect); Human Metapneumovirus Not Detected (Not Detect); Human Rhinovirus/Enterovirus Not Detected (Not Detect); Influenza A Subtype 2009 H1 Not Detected (Not Detect); Influenza B Not Detected (Not Detect); Mycoplasma pneumoniae Not Detected (Not Detect); Parainfluenza Virus 1 Not Detected (Not Detect); Parainfluenza Virus 2 Not Detected (Not Detect); Parainfluenza Virus 3 Not Detected (Not Detect); Parainfluenza Virus 4 Not Detected (Not Detect); Respiratory Syncytial Virus Not Detected (Not Detect); SARS-CoV-2 Not Detected (Not Detect)
[2020-05-26] MEDS ORDERED: *HR* HYDROcodone/Acet 5/325 mg TABLET PO PRN (10:09)
[2020-05-26] MEDS: Ipratropium/Albuterol Neb 3 ML IH SCH ×3 (11:35→21:24)
[2020-05-26] MEDS: Insulin LISPRO 300 UNITS/3 ML VIAL SQ SCH ×3 (11:58→21:16)
[2020-05-26] MEDS: Furosemide 20 MG TABLET PO SCH ×2 (11:58→18:31)
[2020-05-26] MEDS ORDERED: Ipratropium/Albuterol Neb 3 ML IH SCH (12:00)
[2020-05-26] MEDS: MethylPREDNISolone 40 MG/ML VIAL IVP SCH ×2 (16:38→23:03)
[2020-05-26] MEDS: Budesonide/Formoterol 160/4.5 1 PUFF INH IH SCH (21:24)
[2020-05-27 02:54] LABS: Basophils % 0.1 %; Hematocrit 35.7 % (35.3-44.9); Hemoglobin 11.7 g/dL (11.5-15.4); Immature Granulocytes % 0.5 % (0-4); Lymphocytes % 8.8 %; Mean Corpuscular HGB Conc 32.8 g/dL (31.6-35.5); Mean Corpuscular Hemoglobin 29.1 pg (28.0-33.3); Mean Corpuscular Volume 88.8 fL (83.0-100.0); Mean Platelet Volume 9.7 fL (9.4-12.4); Monocytes # 0.2 K/mcL (0.0-1.3); Monocytes % 1.5 %; Neutrophils # 9.9 K/mcL (1.6-8.9); Platelet Count 314 K/mcL (140-400); Red Blood Count 4.02 M/mcL (3.82-4.97); Segmented Neutrophils % 89.1 %; White Blood Count 11.1 K/mcL (4.3-11.1)
[2020-05-27 03:09] LABS: BUN/Creatinine Ratio 18 (6-26); Blood Urea Nitrogen 17 mg/dL (8-23); Calcium 9.5 mg/dL (8.6-10.3); Carbon Dioxide 27 mEq/L (23-29); Chloride 101 mEq/L (98-107); Glucose 216 mg/dL (70-105); Osmolality,Calculated 296 (280-300); Sodium 139 mEq/L (136-145); eGFR For African Americans > 60 (> 60); eGFR For Non-African Americans > 60 (> 60)
[2020-05-27] MEDS: Ipratropium/Albuterol Neb 3 ML IH SCH ×2 (03:31→10:59)
[2020-05-27] MEDS: *HR* Enoxaparin 40 MG/0.4 ML SYRINGE SQ SCH (05:20)
[2020-05-27] MEDS: lisinopriL 5 MG TABLET PO SCH (08:32)
[2020-05-27] MEDS: Furosemide 20 MG TABLET PO SCH ×2 (08:37→18:19)
[2020-05-27] MEDS: Aspirin Enteric Coated 81 MG Tablet PO SCH (08:37)
[2020-05-27] MEDS: Loratadine 10 MG TABLET PO SCH (08:37)
[2020-05-27] MEDS: Insulin LISPRO 300 UNITS/3 ML VIAL SQ SCH ×4 (08:38→20:38)
[2020-05-27] MEDS: MethylPREDNISolone 40 MG/ML VIAL IVP SCH ×2 (08:38→18:20)
[2020-05-27] MEDS: Budesonide/Formoterol 160/4.5 1 PUFF INH IH SCH ×2 (10:59→21:20)
[2020-05-27] MEDS ORDERED: Levalbuterol Neb 1.25 MG/3 ML IH PRN (14:11)
[2020-05-28] MEDS: *HR* Enoxaparin 40 MG/0.4 ML SYRINGE SQ SCH (05:41)
[2020-05-28] MEDS: MethylPREDNISolone 40 MG/ML VIAL IVP SCH (05:42)
[2020-05-28 07:37] VITALS: BP 134/88
[2020-05-28] MEDS: Budesonide/Formoterol 160/4.5 1 PUFF INH IH SCH (08:07)
[2020-05-28] MEDS: Furosemide 20 MG TABLET PO SCH (08:18)
[2020-05-28] MEDS: Aspirin Enteric Coated 81 MG Tablet PO SCH (08:19)
[2020-05-28] MEDS: Insulin LISPRO 300 UNITS/3 ML VIAL SQ SCH (08:19)
[2020-05-28] MEDS: Loratadine 10 MG TABLET PO SCH (08:19)
[2020-05-28] MEDS: lisinopriL 5 MG TABLET PO SCH (08:19)
== END 2020-05-28 11:15 | disposition home or self-care (01) ==
LOC: EMEROOARM 07:08 → 3BNU 07:08 → SUATTDRO 09:53 → 3BNU 10:30
PROVIDERS: ADMIT Student in an Organized Health Care Education/Training Program; ATTEND Nurse Practitioner Adult Health